=== PATIENT | female | born 1940 | race Caucasian/White ===

== ENCOUNTER 2016-11-26 08:23 | Emergency (ER) | payer MEDICARE, BC ==
[2016-11-26] MEDS ORDERED: Benzonatate 100 MG Cap ONE (08:30)
[2016-11-26] MEDS ORDERED: Azithromycin 250 MG Tab ONE (08:30)
[2016-11-26 08:35] VITALS: BP 156/91
--- NOTE | 2016-11-26 10:57 | EDM.PDOC ---
ED HPI GENERAL MEDICAL PROBLEM - General Chief Complaint: General Stated Complaint: SINUS/BODY ACHE Time Seen by Provider: 11/26/16 08:50 Source of Information: Reports: Patient History Limitations: Reports: No limitations - History of Present Illness INITIAL COMMENTS - FREE TEXT/NARRATIVE: This is a 76yo F here for chest congestion, cough and back pain. Patient states she has been cough and has productive sputum frequently. Patient denies fever or chills and denies sob or chest pain but does have back pain. The pain is worse when coughing. Onset: gradual Duration: Week(s):, Getting worse Location: Reports: chest Severity: mild Improves with: Reports: None Worsens with: Reports: None Associated Symptoms: Reports: cough. Denies: chest pain, fever/chills, malaise , nausea/vomiting, shortness of breath, syncope, weakness - Related Data Allergies Allergy/AdvReac Type Severity Reaction Status Date / Time Penicillins Allergy Swelling Verified 11/26/16 08:32 Home Meds: Home Meds Calcium Carbonate [Calcium] 600 mg PO BID 05/07/14 [History] HCTZ/Triamterene [Maxzide 25-37.5 MG] 1 tab PO DAILY 05/07/14 [History] Lisinopril [Lisinopril] 30 mg PO DAILY 05/07/14 [History] Melatonin 3 mg PO BEDTIME 05/07/14 [History] Pravastatin [Pravachol] 40 mg PO BEDTIME 05/07/14 [History] Past Medical History HEENT History: Reports: Impaired vision Cardiovascular History: Reports: Hypertension Gastrointestinal History: Reports: None [employer]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 Oncologic (Cancer) History: Reports: Breast - Infectious Disease History Infectious Disease History: Reports: Chicken pox, Meningitis, Mumps - Past Surgical History HEENT Surgical History: Reports: Adenoidectomy Respiratory Surgical History: Reports: None GI Surgical History: Reports: None Social & Family History - Family History Family Medical History: Noncontributory - Tobacco Use Smoking Status *Q: Never Smoker Second Hand Smoke Exposure: Yes - Caffeine Use Caffeine Use: Reports: None - Alcohol Use Days Per Week of Alcohol Use: 0 - Recreational Drug Use Recreational Drug Use: No ED ROS GENERAL - Review of Systems Review Of Systems: ROS reveals no pertinent complaints other than HPI. ED EXAM, GENERAL - Physical Exam Exam: See Below Exam Limited By: No limitations General Appearance: alert, WD/WN, no apparent distress Eye Exam: bilateral eye: EOMI, PERRL Ears: normal external exam Ear Exam: bilateral ear: TM normal Nose: normal inspection Throat/Mouth: Normal inspection Head: atraumatic, normocephalic Neck: normal inspection, supple, non-tender, full range of motion Respiratory/Chest: no respiratory distress, no accessory muscle use, chest non- tender, rhonchi Cardiovascular: normal peripheral pulses, regular rate, rhythm, no edema Peripheral Pulses: 2+: dorsalis pedis (L), dorsalis pedis (R) Back Exam: muscle spasm Extremities: normal inspection Neurological: alert, oriented, CN II-XII intact Psychiatric: normal affect, normal mood Skin Exam: Warm, Dry, Intact Course - Vital Signs Last Recorded V/S: Last Vital Signs Temp 36.9 C 11/26/16 08:34 Pulse 87 11/26/16 08:34 Resp BP 156/91 H 11/26/16 08:34 Pulse Ox 97 11/26/16 08:34 Departure - Departure Time of Disposition: 09:15 Disposition: Home, Self-Care 01 Condition: good Clinical Impression: Cough, Chest congestion Muscle strain of chest wall Qualifiers: Encounter type: initial encounter Qualified Code(s): S29.011A - Strain of muscle and tendon of front wall of thorax, initial encounter Instructions: Azithromycin tablets Forms: ED Department Discharge Additional Instructions: Take teslon perrles 3 times (every 8 hours) a day as needed for cough. Take azithromycin 2 tablets for 10 days daily. Make sure to complete all of azithromycin medication. Follow with Dr. Estrada if your symptoms do not improve. - Problem List Review Problem List Initiated/Reviewed/Updated: Yes - Assessment/Plan Plan: Counseled on f/u if symptoms persist or worsen. Patient to take her medication as prescribed and f/u in clinic this week.
== END 2016-11-26 09:05 | disposition home or self-care (01) ==
LOC: LB.ED 08:23
DX: S29.011A Strain of muscle and tendon of front wall of thorax, initial encounter (principal); I10 Essential (primary) hypertension; Z98.890 Other specified postprocedural states; Z88.0 Allergy status to penicillin; X58.XXXA Exposure to other specified factors, initial encounter
CPT/HCPCS: 99283; A9270

== ENCOUNTER 2017-02-17 13:13 | Observation (INO) | payer MEDICARE, BC ==
[2017-02-17] MEDS ORDERED: Ketorolac 30 MG/ML SDV IVPUSH PRN (14:07)
[2017-02-17] MEDS ORDERED: Sodium Chloride 0.9% 10 ML Syringe FLUSH PRN (14:08)
[2017-02-17] MEDS ORDERED: Sodium Chloride 0.9% 2,000 ML IV SCH (14:15)
--- NOTE | 2017-02-17 14:16 | EDM.PDOC ---
ED HPI GENERAL MEDICAL PROBLEM - General Chief Complaint: General Stated Complaint: BACK PAIN Time Seen by Provider: 02/17/17 13:50 Source of Information: Reports: Patient - History of Present Illness INITIAL COMMENTS - FREE TEXT/NARRATIVE: This is a 76yo F here for severe back pain 05/03 that has worsened the past few weeks. Patient has been going to [facility] and [facility] for further workup and management of her lung cancer and staging. Patient states she has lost a lot of weight, feels very weak and fatigued. Patient states she feels dehydrated as well. Onset: Gradual Duration: Week(s): Location: Reports: Generalized Severity: Moderate Associated Symptoms: Reports: Loss of Appetite, Weakness - Related Data Allergies Allergy/AdvReac Type Severity Reaction Status Date / Time Penicillins Allergy Swelling Verified 11/26/16 08:32 Home Meds: Home Meds Calcium Carbonate [Calcium] 600 mg PO BID 05/07/14 [History] HCTZ/Triamterene [Maxzide 25-37.5 MG] 1 tab PO DAILY 05/07/14 [History] Lisinopril [Lisinopril] 30 mg PO DAILY 05/07/14 [History] Melatonin 3 mg PO BEDTIME 05/07/14 [History] Pravastatin [Pravachol] 40 mg PO BEDTIME 05/07/14 [History] Past Medical History HEENT History: Reports: Impaired Vision Cardiovascular History: Reports: Hypertension Other Respiratory History: dx in December 20 with lung CA Gastrointestinal History: Reports: None [employer]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 Oncologic (Cancer) History: Reports: Breast, Lung Other Oncologic History: Lung CA diagnosed December 20 2016 - Infectious Disease History Infectious Disease History: Reports: Chicken Pox, Meningitis, Mumps - Past Surgical History Respiratory Surgical History: Reports: None GI Surgical History: Reports: None Social & Family History - Family History Family Medical History: Noncontributory - Tobacco Use Smoking Status *Q: Never Smoker Second Hand Smoke Exposure: No - Caffeine Use Caffeine Use: Reports: None - Alcohol Use Days Per Week of Alcohol Use: 0 - Recreational Drug Use Recreational Drug Use: No ED ROS GENERAL - Review of Systems Review Of Systems: See Below Constitutional: Reports: Weakness, Fatigue, Decreased Appetite, Weight Loss HEENT: Reports: No Symptoms Respiratory: Reports: No Symptoms Cardiovascular: Reports: No Symptoms Endocrine: Reports: Fatigue GI/Abdominal: Reports: Constipation : Reports: No Symptoms Musculoskeletal: Reports: Back Pain Neurological: Reports: Weakness Psychiatric: Reports: No Symptoms ED EXAM, GENERAL - Physical Exam Exam: See Below Exam Limited By: No Limitations General Appearance: Alert, Mild Distress, Thin Eye Exam: Bilateral Eye: EOMI Ears: Normal External Exam Nose: Normal Inspection Throat/Mouth: Normal Inspection Head: Atraumatic, Normocephalic Neck: Normal Inspection Respiratory/Chest: No Respiratory Distress, Lungs Clear Cardiovascular: Normal Peripheral Pulses, Regular Rate, Rhythm GI/Abdominal: Normal Bowel Sounds Extremities: Normal Inspection Neurological: Alert, Oriented Course - Vital Signs Last Recorded V/S: Last Vital Signs Temp 37.2 C 02/17/17 14:00 Pulse 107 H 02/17/17 14:00 Resp 16 02/17/17 14:00 BP 146/95 H 02/17/17 14:00 Pulse Ox 95 02/17/17 14:00 - Orders/Labs/Meds Orders: Active Orders 24 hr Category Date Time Status Patient Status [ADT] Routine ADT 02/17/17 14:04 Ordered Oxygen Therapy [RC] PRN Care 02/17/17 14:04 Ordered Vital Signs [RC] QSHIFT Care 02/17/17 14:04 Ordered Regular Diet [DIET] Diet 02/17/17 Dinner Ordered CBC WITH AUTO DIFF [HEME] Routine Lab 02/17/17 14:10 Ordered COMPREHENSIVE METABOLIC PN,CMP [CHEM] Routine Lab 02/17/17 14:10 Ordered Calcium Carbonate Med 02/17/17 20:00 Ordered 600 mg PO BID HCTZ/Triamterene [Maxzide 25-37.5 MG] Med 02/17/17 14:15 Ordered 1 tab PO DAILY Ketorolac [Toradol] Med 02/17/17 14:07 Ordered 30 mg IVPUSH Q8H PRN Lisinopril [Lisinopril] Med 02/17/17 14:15 Ordered 30 mg PO DAILY Melatonin Med 02/17/17 20:00 Ordered 3 mg PO BEDTIME Pravastatin [Pravachol] Med 02/17/17 20:00 Ordered 40 mg PO BEDTIME Sodium Chloride 0.9% [Normal Saline] 2,000 ml Med 02/17/17 14:15 Ordered IV ASDIRECTED Sodium Chloride 0.9% [Saline Flush] Med 02/17/17 14:08 Ordered 10 ml FLUSH ASDIRECTED PRN Zolpidem [Ambien] Med 02/17/17 20:00 Ordered 5 mg PO BEDTIME Peripheral IV Insertion Adult [OM.PC] Routine Oth 02/17/17 14:08 Ordered Medication Orders Calcium Carbonate/Glycine (Calcium Carbonate) 600 mg PO BID OXANA Sodium Chloride (Normal Saline) 2,000 mls @ 100 mls/hr IV ASDIRECTED OXANA Ketorolac Tromethamine (Toradol) 30 mg IVPUSH Q8H PRN PRN Reason: Pain Stop: 02/22/17 14:07 Melatonin (Melatonin) 3 mg PO BEDTIME OXANA Non-Formulary Medication (Hctz/Triamterene [Maxzide 25-37.5 Mg]) 1 tab PO DAILY OXANA Non-Formulary Medication (Lisinopril [Lisinopril]) 30 mg PO DAILY OXANA Pravastatin Sodium (Pravachol) 40 mg PO BEDTIME OXANA Sodium Chloride (Saline Flush) 10 ml FLUSH ASDIRECTED PRN PRN Reason: Keep Vein Open Zolpidem Tartrate (Ambien) 5 mg PO BEDTIME [facility] Meds: Medications Generic Name Dose Route Start Last Admin Trade Name Freq PRN Reason Stop Dose Admin Calcium Carbonate/Glycine 600 mg 02/17/17 20:00 Calcium Carbonate PO BID OXANA Sodium Chloride 2,000 mls @ 100 mls/hr 02/17/17 14:15 Normal Saline IV ASDIRECTED OXANA Ketorolac Tromethamine 30 mg 02/17/17 14:07 Toradol IVPUSH 02/22/17 14:07 Q8H PRN Pain Melatonin 3 mg 02/17/17 20:00 Melatonin PO BEDTIME OXANA Non-Formulary Medication 1 tab 02/17/17 14:15 Hctz/Triamterene [Maxzide 25-37.5 Mg] PO DAILY OXANA Non-Formulary Medication 30 mg 02/17/17 14:15 Lisinopril [Lisinopril] PO DAILY OXANA Pravastatin Sodium 40 mg 02/17/17 20:00 Pravachol PO BEDTIME OXANA Sodium Chloride 10 ml 02/17/17 14:08 Saline Flush FLUSH ASDIRECTED PRN Keep Vein Open Zolpidem Tartrate 5 mg 02/17/17 20:00 Ambien PO BEDTIME OXANA Departure - Departure Time of Disposition: 14:18 Disposition: Refer to Observation Condition: good Clinical Impression: Palliative care patient, Dehydration, Cachexia Lung cancer Qualifiers: Laterality: left Lung location: upper lobe of lung Qualified Code(s): C34.12 - Malignant neoplasm of upper lobe, left bronchus or lung Back pain Qualifiers: Back pain location: low back pain Chronicity: chronic Back pain laterality: bilateral Sciatica presence: without sciatica Qualified Code(s): M54.5 - Low back pain; G89.29 - Other chronic pain - Discharge Information Forms: ED Department Discharge - My Orders Last 24 Hours: My Active Orders 02/17/17 14:04 Patient Status [ADT] Routine Oxygen Therapy [RC] PRN Vital Signs [RC] QSHIFT 02/17/17 14:07 Ketorolac [Toradol] 30 mg IVPUSH Q8H PRN 02/17/17 14:08 Sodium Chloride 0.9% [Saline Flush] 10 ml FLUSH ASDIRECTED PRN Peripheral IV Insertion Adult [OM.PC] Routine 02/17/17 14:10 CBC WITH AUTO DIFF [HEME] Routine COMPREHENSIVE METABOLIC PN,CMP [CHEM] Routine 02/17/17 14:15 HCTZ/Triamterene [Maxzide 25-37.5 MG] 1 tab PO DAILY Lisinopril [Lisinopril] 30 mg PO DAILY Sodium Chloride 0.9% [Normal Saline] 2,000 ml IV ASDIRECTED 02/17/17 20:00 Calcium Carbonate 600 mg PO BID Melatonin 3 mg PO BEDTIME Pravastatin [Pravachol] 40 mg PO BEDTIME Zolpidem [Ambien] 5 mg PO BEDTIME 02/17/17 Dinner Regular Diet [DIET] - Assessment/Plan Last 24 Hours: My Active Orders 02/17/17 14:04 Patient Status [ADT] Routine Oxygen Therapy [RC] PRN Vital Signs [RC] QSHIFT 02/17/17 14:07 Ketorolac [Toradol] 30 mg IVPUSH Q8H PRN 02/17/17 14:08 Sodium Chloride 0.9% [Saline Flush] 10 ml FLUSH ASDIRECTED PRN Peripheral IV Insertion Adult [OM.PC] Routine 02/17/17 14:10 CBC WITH AUTO DIFF [HEME] Routine COMPREHENSIVE METABOLIC PN,CMP [CHEM] Routine 02/17/17 14:15 HCTZ/Triamterene [Maxzide 25-37.5 MG] 1 tab PO DAILY Lisinopril [Lisinopril] 30 mg PO DAILY Sodium Chloride 0.9% [Normal Saline] 2,000 ml IV ASDIRECTED 02/17/17 20:00 Calcium Carbonate 600 mg PO BID Melatonin 3 mg PO BEDTIME Pravastatin [Pravachol] 40 mg PO BEDTIME Zolpidem [Ambien] 5 mg PO BEDTIME 02/17/17 Dinner Regular Diet [DIET] Plan: Patient placed in observation. Labs ordered and fluid resuscitation started. Pain meds started. Continue monitoring and pain management.
[2017-02-17] MEDS: Dextrose 5%-0.9% NaCl 1,000 ML IV SCH ×2 (17:25→23:52)
[2017-02-17] MEDS: Calcium Carbonate 600 MG Tab PO SCH (19:48)
[2017-02-17] MEDS: Melatonin 3 MG Tab PO SCH (19:48)
[2017-02-17] MEDS: Zolpidem 5 MG Tab PO SCH (19:48)
[2017-02-18] MEDS: Lidocaine 5% 700 MG Patch TOP SCH ×2 (05:15→20:02)
[2017-02-18] MEDS: Dextrose 5%-0.9% NaCl 1,000 ML IV SCH ×2 (06:14→13:13)
[2017-02-18] MEDS: Calcium Carbonate 600 MG Tab PO SCH ×2 (08:52→19:59)
[2017-02-18] MEDS: traMADol 50 MG Tab PO PRN ×3 (09:22→20:30)
--- NOTE | 2017-02-18 12:53 | PCM.PN ---
- General Info Date of Service: 02/18/17 Subjective Update: Patient states she continues to feel weak and dizzy. Patient states she was able to rest a little. Patient denies any worsening symptoms. Functional Status: Reports: other (decreased appetites) - Review of Systems General: Reports: Weakness HEENT: Reports: no symptoms Pulmonary: Reports: no symptoms Cardiovascular: Reports: No Symptoms Gastrointestinal: Reports: Decreased appetite Genitourinary: Reports: no symptoms Musculoskeletal: Reports: back pain (improved and under control) Skin: Reports: no symptoms Neurological: Reports: Dizziness - Patient Data Vitals - most recent: Last Vital Signs Temp 36.5 C 02/18/17 05:07 Pulse 83 02/18/17 05:07 Resp 18 02/18/17 05:07 BP 132/75 02/18/17 05:07 Pulse Ox 97 02/18/17 05:07 Weight - most recent: 60.101 kg Lab Results last 24 hrs: Laboratory Results - last 24 hr 02/17/17 02/17/17 02/18/17 Range/Units 16:20 16:20 09:20 WBC 17.2 H 14.1 H (4.0-11.0) K/uL RBC 4.23 4.02 (3.80-5.80) M/uL Hgb 11.8 11.1 L (11.5-16.5) g/dL Hct 34.9 L 34.1 L (37.0-47.0) % MCV 83 85 (76-96) fL MCH 27.9 27.6 (27.0-32.0) pg MCHC 33.8 32.6 (31.0-35.0) g/dL RDW 12.6 12.5 (11.0-16.0) % Plt Count 277 443 D (150-500) K/uL MPV 10.2 H 9.2 (6.0-10.0) fL Neut % (Auto) 87.0 H 82.5 H (45.0-70.0) % Lymph % (Auto) 6.0 L 6.7 L (20.0-40.0) % Humphreys % (Auto) 6.2 8.8 (3.0-10.0) % Eos % (Auto) 0.5 L 1.6 (1.0-5.0) % Baso % (Auto) 0.3 0.4 (0.0-0.5) % Neut # (Auto) 14.97 H 11.60 H (2.00-7.50) K/uL Lymph # (Auto) 1.03 L 0.94 L (1.50-4.00) K/uL Humphreys # (Auto) 1.07 H 1.23 H (0.20-0.80) K/uL Eos # (Auto) 0.09 0.23 (0.04-0.40) K/uL Baso # (Auto) 0.05 0.05 (0.02-0.10) K/uL Sodium 129 L (136-145) mmol/L Potassium 4.0 (3.5-5.1) mmol/L Chloride 93 L (98-107) mmol/L Carbon Dioxide 28.4 (21.0-32.0) mmol/L Anion Gap 11.6 (5.0-15.0) mmol/L BUN 18 (8-26) mg/dL Creatinine 0.99 (0.55-1.02) mg/dL Est Cr Clr Drug Dosing 45.87 mL/min Estimated GFR (MDRD) 55 L (>60) MLS/MIN BUN/Creatinine Ratio 18.2 (6-25) Glucose 137 H (74-100) mg/dL Calcium 9.6 (8.5-10.1) mg/dL Total Bilirubin 0.5 (0.0-1.0) mg/dL AST 29 (15-37) U/L ALT 15 (12-78) U/L Alkaline Phosphatase 65 (46-116) U/L Total Protein 6.6 (6.4-8.2) g/dL Albumin 2.5 L (3.4-5.0) g/dL Globulin 4.1 (2.2-4.2) g/dL Albumin/Globulin Ratio 0.6 L (0.8-2.0) Urine Color Urine Appearance (CLEAR) Urine pH (5.0-8.0) Ur Specific [place] (1.003-1.030) Urine Protein (NEGATIVE) mg/dL Urine Glucose (UA) (NEGATIVE) mg/dL Urine Ketones (NEGATIVE) mg/dL Urine Occult Blood (NEGATIVE) Urine Nitrite (NEGATIVE) Urine Bilirubin (NEGATIVE) Urine Urobilinogen (0.2-1.0) E.U./dL Ur Leukocyte Esterase (NEGATIVE) Urine RBC /HPF Urine WBC /HPF Ur Epithelial Cells /HPF Urine Bacteria /HPF 02/18/17 Range/Units Unknown WBC (4.0-11.0) K/uL RBC (3.80-5.80) M/uL Hgb (11.5-16.5) g/dL Hct (37.0-47.0) % MCV (76-96) fL MCH (27.0-32.0) pg MCHC (31.0-35.0) g/dL RDW (11.0-16.0) % Plt Count (150-500) K/uL MPV (6.0-10.0) fL Neut % (Auto) (45.0-70.0) % Lymph % (Auto) (20.0-40.0) % Humphreys % (Auto) (3.0-10.0) % Eos % (Auto) (1.0-5.0) % Baso % (Auto) (0.0-0.5) % Neut # (Auto) (2.00-7.50) K/uL Lymph # (Auto) (1.50-4.00) K/uL Humphreys # (Auto) (0.20-0.80) K/uL Eos # (Auto) (0.04-0.40) K/uL Baso # (Auto) (0.02-0.10) K/uL Sodium (136-145) mmol/L Potassium (3.5-5.1) mmol/L Chloride (98-107) mmol/L Carbon Dioxide (21.0-32.0) mmol/L Anion Gap (5.0-15.0) mmol/L BUN (8-26) mg/dL Creatinine (0.55-1.02) mg/dL Est Cr Clr Drug Dosing mL/min Estimated GFR (MDRD) (>60) MLS/MIN BUN/Creatinine Ratio (6-25) Glucose (74-100) mg/dL Calcium (8.5-10.1) mg/dL Total Bilirubin (0.0-1.0) mg/dL AST (15-37) U/L ALT (12-78) U/L Alkaline Phosphatase (46-116) U/L Total Protein (6.4-8.2) g/dL Albumin (3.4-5.0) g/dL Globulin (2.2-4.2) g/dL Albumin/Globulin Ratio (0.8-2.0) Urine Color Yellow Urine Appearance Clear (CLEAR) Urine pH 6.5 (5.0-8.0) Ur Specific [place] 1.015 (1.003-1.030) Urine Protein Negative (NEGATIVE) mg/dL Urine Glucose (UA) Negative (NEGATIVE) mg/dL Urine Ketones Negative (NEGATIVE) mg/dL Urine Occult Blood Negative (NEGATIVE) Urine Nitrite Negative (NEGATIVE) Urine Bilirubin Negative (NEGATIVE) Urine Urobilinogen 0.2 (0.2-1.0) E.U./dL Ur Leukocyte Esterase Trace H (NEGATIVE) Urine RBC Not seen /HPF Urine WBC 0-5 H /HPF Ur Epithelial Cells Occasional /HPF Urine Bacteria Rare /HPF Med Orders - Current: Current Medications Calcium Carbonate/Glycine (Calcium Carbonate) 600 mg PO BID [facility] Last Admin: 02/18/17 08:52 Dose: Not Given Sodium Chloride (Normal Saline) 2,000 mls @ 100 mls/hr IV ASDIRECTED [facility] Last Admin: 02/17/17 15:00 Dose: 100 mls/hr Dextrose/Sodium Chloride (Dextrose 5%-Normal Saline) 1,000 mls @ 150 mls/hr IV ASDIRECTED [facility] Last Admin: 02/18/17 06:14 Dose: 150 mls/hr Ketorolac Tromethamine (Toradol) 30 mg IVPUSH Q8H PRN PRN Reason: Pain Stop: 02/22/17 14:07 Last Admin: 02/17/17 15:19 Dose: 30 mg Lidocaine (Lidoderm 5%) 700 mg TOP Q24H [facility] Last Admin: 02/18/17 05:15 Dose: Not Given Melatonin (Melatonin) 3 mg PO BEDTIME [facility] Last Admin: 02/17/17 19:48 Dose: 3 mg Miscellaneous Information (Remove Patch) 1 ea TRDERM Q24H [facility] Last Admin: 02/18/17 08:52 Dose: Not Given (Hctz/Triamterene [ Maxzide 25-37.5 Mg] 1 Tab)*Pt Own Med* 1 tab PO DAILY [facility] Last Admin: 02/18/17 08:48 Dose: 1 tab (Lisinopril [ Lisinopril] 30 Mg)* Pt Own Med* 30 mg PO DAILY [facility] Last Admin: 02/18/17 08:49 Dose: 30 mg Pravastatin Sodium (Pravachol) 40 mg PO BEDTIME [facility] Last Admin: 02/17/17 19:48 Dose: 40 mg Sodium Chloride (Saline Flush) 10 ml FLUSH ASDIRECTED PRN PRN Reason: Keep Vein Open Last Admin: 02/17/17 14:55 Dose: 10 ml Tramadol HCl (Ultram) 50 mg PO Q4H PRN PRN Reason: PAIN Last Admin: 02/18/17 09:22 Dose: 50 mg Zolpidem Tartrate (Ambien) 5 mg PO BEDTIME [facility] Last Admin: 02/17/17 19:48 Dose: Not Given - Exam General: alert, oriented, cooperative HEENT: Pupils equal, Pupils reactive, EOMI Neck: supple Lungs: Clear to auscultation, Normal respiratory effort, Decreased breath sounds Cardiovascular: Regular Rate, Regular Rhythm Abdomen: bowel sounds present, soft, no tenderness Back Exam: Normal Inspection, Paraspinal Tenderness Extremities: no edema Skin: warm, dry, intact Neurological: no new focal deficit Psy/Mental Status: alert, depressed - Problem List Review Problem List Initiated/Reviewed/Updated: Yes - My Orders Last 24 Hours: My Active Orders 02/17/17 17:15 Dextrose 5%-0.9% NaCl [Dextrose 5%-Normal Saline] 1,000 ml IV ASDIRECTED 02/17/17 21:00 Lidocaine 5% [Lidoderm 5%] 700 mg TOP Q24H 02/18/17 08:59 traMADol [Ultram] 50 mg PO Q4H PRN 02/18/17 09:00 Remove Patch 1 ea TRDERM Q24H 02/18/17 12:49 BASIC METABOLIC PANEL,BMP [CHEM] Routine 02/19/17 08:00 COMPREHENSIVE METABOLIC PN,CMP [CHEM] Routine - Plan Plan:: Patient states she did not feel like going to [facility] for a workup and biopsy. Counseled and discussed benefits of going to [facility] and encouraged patient to maintain her appointment on . Discussed continued observation today. Patient to continue with current meals and ensure. We will decrease fluid hydration rate and f/u labs in am.
[2017-02-18] MEDS: Zolpidem 5 MG Tab PO SCH (19:58)
[2017-02-18] MEDS: Melatonin 3 MG Tab PO SCH (20:00)
[2017-02-19] MEDS: Zolpidem 5 MG Tab PO SCH ×2 (02:00→19:52)
[2017-02-19] MEDS: Dextrose 5%-0.9% NaCl 1,000 ML IV SCH (02:02)
[2017-02-19] MEDS: Calcium Carbonate 600 MG Tab PO SCH ×2 (07:38→19:54)
[2017-02-19] MEDS: Ondansetron 4 MG/2 ML SDV IVPUSH PRN ×3 (07:41→23:36)
[2017-02-19] MEDS ORDERED: D5%-0.9% NaCl w/ KCl 40 meq 1,000 ML IV SCH (12:00)
[2017-02-19] MEDS ORDERED: cefTRIAXone 1 GM in Sodium Chloride 0.9% 50 ML IV SCH (13:00)
--- NOTE | 2017-02-19 13:23 | PCM.PN ---
- General Info Date of Service: 02/19/17 Subjective Update: Patient continues to have symptoms of dizziness, nausea with improving concerns of left lower visual field concerns. Patient states she does not have an appetite at all and feels weak. Functional Status: Reports: pain controlled Pain Score: 3 - Review of Systems General: Reports: Weakness HEENT: Reports: no symptoms Pulmonary: Reports: no symptoms Cardiovascular: Reports: No Symptoms Gastrointestinal: Reports: Decreased appetite Genitourinary: Reports: no symptoms Neurological: Reports: Weakness Psychiatric: Reports: no symptoms - Patient Data Vitals - most recent: Last Vital Signs Temp 36.6 C 02/18/17 20:20 Pulse 80 02/18/17 20:20 Resp 18 02/18/17 20:20 BP 146/63 H 02/18/17 20:20 Pulse Ox 97 02/18/17 20:20 Weight - most recent: 60.101 kg I&O - last 24 hours: Intake & Output 02/18/17 02/19/17 02/19/17 22:59 06:59 14:59 Intake Total 900 Balance 900 Lab Results last 24 hrs: Laboratory Results - last 24 hr 02/18/17 02/19/17 02/19/17 Range/Units 09:30 09:30 09:30 WBC 16.4 H (4.0-11.0) K/uL RBC 4.38 (3.80-5.80) M/uL Hgb 12.1 (11.5-16.5) g/dL Hct 36.8 L (37.0-47.0) % MCV 84 (76-96) fL MCH 27.6 (27.0-32.0) pg MCHC 32.9 (31.0-35.0) g/dL RDW 12.5 (11.0-16.0) % Plt Count 513 H (150-500) K/uL MPV 9.1 (6.0-10.0) fL Neut % (Auto) 83.5 H (45.0-70.0) % Lymph % (Auto) 6.9 L (20.0-40.0) % [place] % (Auto) 7.8 (3.0-10.0) % Eos % (Auto) 1.6 (1.0-5.0) % Baso % (Auto) 0.2 (0.0-0.5) % Neut # (Auto) 13.71 H (2.00-7.50) K/uL Lymph # (Auto) 1.14 L (1.50-4.00) K/uL [place] # (Auto) 1.29 H (0.20-0.80) K/uL Eos # (Auto) 0.26 (0.04-0.40) K/uL Baso # (Auto) 0.04 (0.02-0.10) K/uL Sodium 134 L 131 L (136-145) mmol/L Potassium 3.8 3.3 L (3.5-5.1) mmol/L Chloride 99 95 L (98-107) mmol/L Carbon Dioxide 30.8 29.8 (21.0-32.0) mmol/L Anion Gap 8.0 9.5 (5.0-15.0) mmol/L BUN 15 9 D (8-26) mg/dL Creatinine 0.92 0.79 (0.55-1.02) mg/dL Est Cr Clr Drug Dosing 49.36 57.48 mL/min Estimated GFR (MDRD) 59 L > 60 (>60) MLS/MIN BUN/Creatinine Ratio 16.3 11.4 (6-25) Glucose 95 D 99 (74-100) mg/dL Calcium 8.9 9.3 (8.5-10.1) mg/dL Total Bilirubin 0.3 D (0.0-1.0) mg/dL AST 19 (15-37) U/L ALT 16 (12-78) U/L Alkaline Phosphatase 72 (46-116) U/L Total Protein 6.4 (6.4-8.2) g/dL Albumin 2.4 L (3.4-5.0) g/dL Globulin 4.0 (2.2-4.2) g/dL Albumin/Globulin Ratio 0.6 L (0.8-2.0) Ángel Results last 24 hrs: Microbiology 02/17/17 Unknown MRSA Surveillance Culture - Final Nares, Unspecified NO MRSA ISOLATED Med Orders - Current: Current Medications Calcium Carbonate/Glycine (Calcium Carbonate) 600 mg PO BID [facility] Last Admin: 02/19/17 07:38 Dose: Not Given Sodium Chloride (Normal Saline) 2,000 mls @ 100 mls/hr IV ASDIRECTED [facility] Last Admin: 02/17/17 15:00 Dose: 100 mls/hr Potassium Chloride/Dextrose/Sod Cl (D5 Ns With 40 Meq Kcl) 1,000 mls @ 120 mls/ hr IV ASDIRECTED [facility] Ceftriaxone Sodium 1 gm/ (Sodium Chloride) 100 mls @ 400 mls/hr IV BID [facility] Ketorolac Tromethamine (Toradol) 30 mg IVPUSH Q8H PRN PRN Reason: Pain Stop: 02/22/17 14:07 Last Admin: 02/17/17 15:19 Dose: 30 mg Lidocaine (Lidoderm 5%) 700 mg TOP Q24H [facility] Last Admin: 02/18/17 20:02 Dose: Not Given Melatonin (Melatonin) 3 mg PO BEDTIME [facility] Last Admin: 02/18/17 20:00 Dose: 3 mg Miscellaneous Information (Remove Patch) 1 ea TRDERM Q24H [facility] Last Admin: 02/18/17 08:52 Dose: Not Given (Hctz/Triamterene [ Maxzide 25-37.5 Mg] 1 Tab)*Pt Own Med* 1 tab PO DAILY [facility] Last Admin: 02/19/17 07:40 Dose: 1 tab (Lisinopril [ Lisinopril] 30 Mg)* Pt Own Med* 30 mg PO DAILY [facility] Last Admin: 02/19/17 07:40 Dose: 30 mg Ondansetron HCl (Zofran) 4 mg IVPUSH Q4H PRN PRN Reason: Nausea/Vomiting Last Admin: 02/19/17 07:41 Dose: 4 mg Pravastatin Sodium (Pravachol) 40 mg PO BEDTIME [facility] Last Admin: 02/18/17 20:00 Dose: 40 mg Sodium Chloride (Saline Flush) 10 ml FLUSH ASDIRECTED PRN PRN Reason: Keep Vein Open Last Admin: 02/17/17 14:55 Dose: 10 ml Tramadol HCl (Ultram) 50 mg PO Q4H PRN PRN Reason: PAIN Last Admin: 02/18/17 20:30 Dose: 50 mg Zolpidem Tartrate (Ambien) 5 mg PO BEDTIME [facility] Last Admin: 02/19/17 02:00 Dose: 5 mg Discontinued Medications Dextrose/Sodium Chloride (Dextrose 5%-Normal Saline) 1,000 mls @ 150 mls/hr IV ASDIRECTED [facility] Last Admin: 02/19/17 02:02 Dose: 150 mls/hr Ceftriaxone Sodium 1 gm/ (Sodium Chloride) 50 mls @ 100 mls/hr IV Q12H [facility] - Exam General: alert, oriented, cooperative HEENT: Pupils equal, Pupils reactive, EOMI Neck: supple Lungs: Clear to auscultation, Normal respiratory effort Cardiovascular: Regular Rate, Regular Rhythm Abdomen: bowel sounds present, soft, no tenderness Extremities: no edema Skin: warm, dry, intact Neurological: no new focal deficit Psy/Mental Status: alert, normal affect, normal mood - Problem List Review Problem List Initiated/Reviewed/Updated: Yes - My Orders Last 24 Hours: My Active Orders 02/19/17 07:27 Ondansetron [Zofran] 4 mg IVPUSH Q4H PRN 02/19/17 12:00 D5%-0.9% NaCl w/ KCl 40 meq [D5 NS with 40 mEq KCl] 1,000 ml IV ASDIRECTED 02/19/17 13:00 cefTRIAXone [Rocephin] 1 gm Sodium Chloride 0.9% [Normal Saline] 100 ml IV BID - Plan Plan:: Patient states she did not feel like going to [place] for a workup and biopsy. Counseled and discussed benefits of going to [place] and encouraged patient to maintain her appointment on . Discussed continued observation today. Patient to continue with current meals and ensure. We will decrease fluid hydration rate and f/u labs in am. 02/19/17 Patient continues to have nausea and weakness. We will change fluids to D5 NS with 20meq (do not have 40meq) and add a few KCL tablets. Empiric rocephin IV for leukocytosis of unknown origin but may possibly be the unconfirmed lung lesions, increased stress and back pain. Labs ordered for am and patient plan for discharge and to fly to [place] the next day for appt for biopsy of lung lesions.
[2017-02-19] MEDS: cefTRIAXone 1 GM in Sodium Chloride 0.9% 100 ML IV SCH ×2 (13:27→23:00)
[2017-02-19] MEDS: Dextrose 5%-0.9% NaCl with KCl 1,000 ML IV SCH ×2 (14:20→20:59)
[2017-02-19] MEDS: Potassium Chloride 20 MEQ Tab.ER PO SCH (19:52)
[2017-02-19] MEDS: Melatonin 3 MG Tab PO SCH (19:53)
[2017-02-19] MEDS: traMADol 50 MG Tab PO PRN (20:06)
[2017-02-19] MEDS: Lidocaine 5% 700 MG Patch TOP SCH (21:00)
[2017-02-20] MEDS: traMADol 50 MG Tab PO PRN (04:15)
[2017-02-20] MEDS: Dextrose 5%-0.9% NaCl with KCl 1,000 ML IV SCH (04:23)
[2017-02-20] MEDS: Potassium Chloride 20 MEQ Tab.ER PO SCH (09:10)
[2017-02-20] MEDS: Calcium Carbonate 600 MG Tab PO SCH (09:15)
[2017-02-20] MEDS: cefTRIAXone 1 GM in Sodium Chloride 0.9% 100 ML IV SCH (09:17)
--- NOTE | 2017-02-20 09:51 | PCM.DCSUM1 ---
Discharge Summary - Discharge Data Discharge Date: 02/20/17 Discharge Disposition: Home, Self-Care 01 Condition: Good - Patient Instructions Diet: Usual Diet as Tolerated Activity: As Tolerated Driving: Do Not Drive - Discharge Plan Home Medications: Home Meds Calcium Carbonate [Calcium] 600 mg PO BID 05/07/14 [History] HCTZ/Triamterene [Maxzide 25-37.5 MG] 1 tab PO DAILY 05/07/14 [History] Lisinopril [Lisinopril] 30 mg PO DAILY 05/07/14 [History] Melatonin 3 mg PO BEDTIME 05/07/14 [History] Pravastatin [Pravachol] 40 mg PO BEDTIME 05/07/14 [History] Forms: ED Department Discharge Referrals: PCP,None [Primary Care Provider] - - Discharge Summary/Plan Comment DC Time >30 min.: Yes Discharge Summary/Plan Comment: Counseled on discharge instructions. Patient discharged so she is able to get ready and fly to [place] for further workup and biopsy of her lung mass. Patient understands the current risks and benefits of discharge and agrees with plan. Although we discussed options for patient to stay in the hospital until she has to leave for her flight Wed. Patient would like to leave today and get ready for tomorrow. Discussed elevated WBC and electrolyte abnormalities. Patient will f/u at [place] for further workup. - Patient Data Vitals - Most Recent: Last Vital Signs Temp 37.1 C 02/19/17 20:00 Pulse 86 02/19/17 20:00 Resp 18 02/19/17 20:00 BP 142/60 H 02/19/17 20:00 Pulse Ox 93 L 02/19/17 20:00 Weight - Most Recent: 60.101 kg I&O - Last 24 hours: Intake & Output 02/19/17 02/20/17 02/20/17 22:59 06:59 14:59 Intake Total 2111 1512 Output Total 150 Balance 1961 1512 Lab Results - Last 24 hrs: Laboratory Results - last 24 hr 02/19/17 02/20/17 02/20/17 Range/Units 09:30 08:30 08:30 WBC 16.3 H (4.0-11.0) K/uL RBC 4.15 (3.80-5.80) M/uL Hgb 11.4 L (11.5-16.5) g/dL Hct 35.3 L (37.0-47.0) % MCV 85 (76-96) fL MCH 27.5 (27.0-32.0) pg MCHC 32.3 (31.0-35.0) g/dL RDW 12.4 (11.0-16.0) % Plt Count 427 (150-500) K/uL MPV 9.3 (6.0-10.0) fL Neut % (Auto) 81.3 H (45.0-70.0) % Lymph % (Auto) 8.9 L (20.0-40.0) % [place] % (Auto) 7.8 (3.0-10.0) % Eos % (Auto) 1.8 (1.0-5.0) % Baso % (Auto) 0.2 (0.0-0.5) % Neut # (Auto) 13.25 H (2.00-7.50) K/uL Lymph # (Auto) 1.45 L (1.50-4.00) K/uL [place] # (Auto) 1.28 H (0.20-0.80) K/uL Eos # (Auto) 0.29 (0.04-0.40) K/uL Baso # (Auto) 0.04 (0.02-0.10) K/uL Sodium 131 L 134 L (136-145) mmol/L Potassium 3.3 L 3.7 (3.5-5.1) mmol/L Chloride 95 L 100 (98-107) mmol/L Carbon Dioxide 29.8 28.0 (21.0-32.0) mmol/L Anion Gap 9.5 9.7 (5.0-15.0) mmol/L BUN 9 D 9 (8-26) mg/dL Creatinine 0.79 0.66 (0.55-1.02) mg/dL Est Cr Clr Drug Dosing 57.48 68.80 mL/min Estimated GFR (MDRD) > 60 > 60 (>60) MLS/MIN BUN/Creatinine Ratio 11.4 13.6 (6-25) Glucose 99 118 H (74-100) mg/dL Calcium 9.3 9.2 (8.5-10.1) mg/dL Total Bilirubin 0.3 D (0.0-1.0) mg/dL AST 19 (15-37) U/L ALT 16 (12-78) U/L Alkaline Phosphatase 72 (46-116) U/L Total Protein 6.4 (6.4-8.2) g/dL Albumin 2.4 L (3.4-5.0) g/dL Globulin 4.0 (2.2-4.2) g/dL Albumin/Globulin Ratio 0.6 L (0.8-2.0) LUCAS Results - Last 24 hrs: Microbiology 02/17/17 Unknown MRSA Surveillance Culture - Final Nares, Unspecified NO MRSA ISOLATED Med Orders - Current: Current Medications Calcium Carbonate/Glycine (Calcium Carbonate) 600 mg PO BID [facility] Last Admin: 02/20/17 09:15 Dose: Not Given Sodium Chloride (Normal Saline) 2,000 mls @ 100 mls/hr IV ASDIRECTED [facility] Last Admin: 02/17/17 15:00 Dose: 100 mls/hr Ceftriaxone Sodium 1 gm/ (Sodium Chloride) 100 mls @ 400 mls/hr IV BID [facility] Last Admin: 02/20/17 09:17 Dose: 400 mls/hr Potassium Chloride/Dextrose/Sod Cl (D5 Ns With 20 Meq Kcl) 1,000 mls @ 150 mls/ hr IV ASDIRECTED [facility] Last Admin: 02/20/17 04:23 Dose: 150 mls/hr Ketorolac Tromethamine (Toradol) 30 mg IVPUSH Q8H PRN PRN Reason: Pain Stop: 02/22/17 14:07 Last Admin: 02/17/17 15:19 Dose: 30 mg Lidocaine (Lidoderm 5%) 700 mg TOP Q24H [facility] Last Admin: 02/19/17 21:00 Dose: Not Given Melatonin (Melatonin) 3 mg PO BEDTIME [facility] Last Admin: 02/19/17 19:53 Dose: 3 mg Miscellaneous Information (Remove Patch) 1 ea TRDERM Q24H [facility] Last Admin: 02/20/17 09:22 Dose: Not Given (Hctz/Triamterene [ Maxzide 25-37.5 Mg] 1 Tab)*Pt Own Med* 1 tab PO DAILY [facility] Last Admin: 02/20/17 09:15 Dose: 1 tab (Lisinopril [ Lisinopril] 30 Mg)* Pt Own Med* 30 mg PO DAILY [facility] Last Admin: 02/20/17 09:15 Dose: 30 mg Ondansetron HCl (Zofran) 4 mg IVPUSH Q4H PRN PRN Reason: Nausea/Vomiting Last Admin: 02/19/17 23:36 Dose: 4 mg Potassium Chloride (Klor-Con M20) 20 meq PO BID [facility] Last Admin: 02/20/17 09:10 Dose: 20 meq Pravastatin Sodium (Pravachol) 40 mg PO BEDTIME [facility] Last Admin: 02/19/17 19:53 Dose: 40 mg Sodium Chloride (Saline Flush) 10 ml FLUSH ASDIRECTED PRN PRN Reason: Keep Vein Open Last Admin: 02/17/17 14:55 Dose: 10 ml Tramadol HCl (Ultram) 50 mg PO Q4H PRN PRN Reason: PAIN Last Admin: 02/20/17 04:15 Dose: 50 mg Zolpidem Tartrate (Ambien) 5 mg PO BEDTIME [facility] Last Admin: 02/19/17 19:52 Dose: 5 mg Discontinued Medications Dextrose/Sodium Chloride (Dextrose 5%-Normal Saline) 1,000 mls @ 150 mls/hr IV ASDIRECTED [facility] Last Admin: 02/19/17 02:02 Dose: 150 mls/hr Potassium Chloride/Dextrose/Sod Cl (D5 Ns With 40 Meq Kcl) 1,000 mls @ 120 mls/ hr IV ASDIRECTED [facility] Ceftriaxone Sodium 1 gm/ (Sodium Chloride) 50 mls @ 100 mls/hr IV Q12H [facility] *Q Meaningful Use (DIS) - VTE *Q VTE Criteria *Q: - Stroke *Q Stroke Criteria *Q: - AMI *Q AMI Criteria *Q:
[2017-02-20 10:23] VITALS: BP 154/79
== END 2017-02-20 12:12 | disposition home or self-care (01) ==
LOC: LB.ED 13:13 → LB.MS 14:04 → UNDOADMOB 14:10 → LB.MS 14:10
PROVIDERS: ADMIT Family Medicine; ATTEND Family Medicine
DX: C34.12 Malignant neoplasm of upper lobe, left bronchus or lung (principal); G89.29 Other chronic pain; M54.5 Low back pain; E86.0 Dehydration; R64 Cachexia; R63.0 Anorexia; R53.1 Weakness; I10 Essential (primary) hypertension; R53.83 Other fatigue; Z88.0 Allergy status to penicillin; Z85.118 Personal history of other malignant neoplasm of bronchus and lung; Z79.899 Other long term (current) drug therapy
CPT/HCPCS: 36415; 80048; 80053; 81001; 85025; 96361; 96365; 96366; 96367; 96375; 96376; 99217; 99220; 99225; 99284; A9270; G0378; J0696; J1885; J2405; J3480; J7030; J7040; J7050

== ENCOUNTER 2017-03-21 14:09 | Inpatient (IN) | payer MEDICARE, BC ==
[2017-03-21] MEDS ORDERED: Sodium Chloride 0.9% 10 ML Syringe FLUSH PRN (16:56)
[2017-03-21] MEDS ORDERED: Acetaminophen 325 MG Tab PO PRN (16:56)
[2017-03-21] MEDS ORDERED: Morphine 2 MG/ML Syringe IVPUSH PRN (16:56)
[2017-03-21] MEDS ORDERED: Bisacodyl 5 MG Tab PO ONE (16:56)
[2017-03-21] MEDS ORDERED: Heparin Sodium 5,000 Units/ML Vial SUBCUT SCH (17:00)
[2017-03-21] MEDS ORDERED: traMADol 50 MG Tab PO PRN (17:06)
[2017-03-21] MEDS ORDERED: Sodium Phosphate,Monobasic/Sodium Phosphate,Dibasic Enema 133 ML Bottle RECTAL ONE (17:07)
--- NOTE | 2017-03-21 17:39 | CR ---
DATE OF SERVICE: 03/21/17 CLINICAL DATA: Nausea with vomiting, unspecified SUPINE AND UPRIGHT ABDOMEN: There is a large amount of stool present throughout the colon and rectum. No definite evidence for obstruction or ileus. No free air. There is increased density in the left lung base consistent with basilar atelectasis or infiltrate. Pneumonia should be considered. There is blunting of the left costophrenic angle consistent with a left pleural effusion. No other significant findings. [id number] MTDD
[2017-03-21] MEDS: Heparin Sodium 5,000 Units/ML Vial SUBCUT SCH (18:06)
[2017-03-21] MEDS ORDERED: Bisacodyl 10 MG Supp RECTAL PRN (18:23)
[2017-03-21] MEDS: Dextrose 5%-0.9% NaCl 1,000 ML IV SCH (18:44)
[2017-03-22] MEDS: Ondansetron 4 MG/2 ML SDV IVPUSH PRN ×3 (03:00→22:02)
[2017-03-22] MEDS: Heparin Sodium 5,000 Units/ML Vial SUBCUT SCH ×2 (06:43→18:43)
[2017-03-22] MEDS: Lisinopril 10 MG Tab PO SCH (08:46)
--- NOTE | 2017-03-22 08:47 | HP ---
CHIEF COMPLAINT: Nausea, vomiting, dizziness, abdominal pain, diarrhea. PAST MEDICAL HISTORY: 1. Left lung mass by CT, 12/20/2016, 8 cm in size. a. 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 b. Per patient and [id number], CT of the abdomen and MRI of the head did not show any spread of the tumor. c. Has not followed up with the oncologist yet to discuss treatment options. 2. 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 ER positive, AK positive, HER- 2 negative. a. Status post lumpectomy and adjuvant radiation and tamoxifen for 5 years. 3. Hypertension. 4. Hyperlipidemia. 5. Hysterectomy. 6. Oophorectomy. HISTORY OF PRESENT ILLNESS: A very pleasant 76-year-old female who is accompanied by her daughter in-law comes in today with nausea, vomiting, and diarrhea that she has had for the last 24 hours. At baseline, she does not eat or drink much and she has lost about 10 pounds over the last month. She denies any hematemesis or coffee-grounds emesis. She states she has had 4 loose stools without blood or mucus. She denies having any fevers, chills, or sweats. She does have some lower abdominal pain that is improved by having a diarrheal stool. She denies any shortness of breath, cough. She does have some left-sided chest pain which she has had that ever since diagnosis of her lung mass. She apparently was hospitalized here in the past for dehydration with similar symptoms. She does take tramadol at home for the pain. CURRENT MEDICATIONS: 1. Lisinopril 30 mg daily. 2. Zofran 4 mg q.4 hours p.r.n. nausea. 3. Pravachol 40 mg, 2 tablets daily. 4. Tramadol 50 mg, 1 to 2 tabs q.6 to 8 hours p.r.n. 5. Maxzide 37.5/25, 1 tablet daily. 6. Zolpidem 5 mg at bedtime p.r.n. FAMILY HISTORY: Mother, stroke and hypertension. Father, hypertension. SOCIAL HISTORY: . Nonsmoker. REVIEW OF SYSTEMS: Other than above, 12-point review of systems is negative. PHYSICAL EXAMINATION: GENERAL: Pleasant, cachectic female was able to walk into the clinic with minimal assist. VITAL SIGNS: Blood pressure was 122/62, pulse of 107. Having the patient stand from a lying position, blood pressure dropped to 100 systolic with a pulse of 115. There is temporal muscle wasting bilaterally. HEENT: Reveals dry mucosa, otherwise negative. No thrush. No adenopathy in the neck. No thyromegaly. CHEST: Reveals mildly decreased breath sounds in the left chest as compared to the right, but no wheezes or rales. CARDIAC: Reveals a tachycardia, regular without gallop or rub. JVD is flat. There is no pedal edema. ABDOMEN: Reveals normoactive bowel sounds. Mildly tender in the lower quadrants bilaterally. I do not feel any masses or organomegaly. : Deferred. NEUROLOGIC: She is alert and oriented x3. Speech is fluent. Cranial nerves 3 through 12 are intact. Strength is symmetric in both upper and lower extremities. Reflexes are brisk and symmetric bilaterally. LABORATORY DATA: White count came back 25,500 with a hemoglobin of 12.8, platelet count of 740. 85% neutrophils, 5.5% lymphocytes. Sodium is 127, potassium 3.7, chloride 87, CO2 is 33, glucose 114, BUN 17 with a creatinine of 1. LFTs are normal. Calcium is 10.2. Abdominal flat and upright, I do not see any evidence of air-fluid levels or dilated loops of bowel. She does have a lot of stool within the colon. I did not see any free air. IMPRESSION: 1. Lung mass. 2. Lung cancer, presumed non-small cell. 3. Nausea, vomiting question secondary to dehydration and possibly also her obstipation. 4. Dehydration. 5. Obstipation. 6. Leukocytosis. 7. Hyponatremia, felt secondary to 1. PLAN: Due to her elevated white count, we will admit her to the hospital and plan IV hydration along with pain control. We will start a bowel regimen for resolution of her obstipation. We will start with a suppository and Fleet Enema from below and if it does not get resolved start MiraLAX from above. Her hyponatremia is most likely due to dehydration or may also be contributed by her lung mass. We will hydrate with normal saline and recheck in the morning. The patient does need to discuss her treatment options with the oncologist since I think waiting longer her performance status is only going to decline. We will discuss with the patient regarding code status, but I certainly think it would be appropriate for DNR/DNI. We will discuss this with the patient. SHAYY/RAMON
[2017-03-22] MEDS: Polyethylene Glycol 3350 Powder 17 GM Packet PO SCH (08:49)
--- NOTE | 2017-03-22 10:08 | PN ---
DATE OF VISIT: 03/22/2017 SUBJECTIVE: The patient has mild nausea overnight, which was resolved with Zofran. She did have 2 smaller stools with the Fleet's enema. Her abdominal discomfort is improved, but still feels discomfort. She does feel better. She has been putting out more urine now. She denies any shortness of breath. Chest pain is controlled with tramadol and she did receive 1 dose of morphine last night. She has not had followup yet with the oncologist to discuss treatment options, which I encouraged her to do next week. OBJECTIVE: VITAL SIGNS: Blood pressure is 144/71, pulse 84, respirations 18, O2 sats 95% with a temperature of 98.3. HEENT shows much better mucosal hydration. Mildly decreased breath sounds in the left chest, right is clear. CARDIAC: Regular rate and rhythm without gallop, rub, gallop, or rub. ABDOMEN: Reveals mildly decreased bowel sounds, but present. Mild tenderness in lower quadrants, although improved from yesterday. LABORATORY DATA: From this morning is pending. IMPRESSION: 1. Dehydration, nausea, vomiting. 2. Obstipation. 3. Lung cancer, presumed non-small cell, left chest with an 8 cm mass. 4. Hypertension. 5. Hyponatremia. 6. Leukocytosis. PLAN: The patient clinically has improved overnight with IV hydration. Do still need to evacuate the colon since her x-ray did show a lot of stool. We will use a soapsuds enema this morning and may have to repeat if we do not get good results. We will also start MiraLAX from above. We will await lab work for hyponatremia this morning, but suspect that that is secondary to the dehydration, but also possibly her lung tumor. We will hold her diuretic. The patient has leukocytosis. She has been afebrile. She did have 2 blood cultures done yesterday, results of those are pending, but I suspect that this is related to her tumor and also her obstipation. Since I do not see any sign of infection, we will recheck white count this morning. Her blood pressure is now normalized, getting slightly high. We will restart her lisinopril at a decreased dose. We will hold her diuretic due to hyponatremia and dehydration. For her lung tumor, will strongly encourage her to set up an appointment with the oncologist next week to discuss treatment options. I told her that this needs to be done while her functional status is adequate to be able to receive chemotherapy since if she gets weaker, the risk of chemotherapy markedly increases. She may also even decide not to treat this and go on hospice. Recommended followup with Oncology next week. Anticipate discharge tomorrow if bowels can be cleared and sodium improves. SHAYY/RAMON /[id number]
[2017-03-22] MEDS: Dextrose 5%-0.9% NaCl 1,000 ML IV SCH ×2 (15:21→23:33)
[2017-03-22] MEDS: Melatonin 3 MG Tab ONE (20:10)
[2017-03-23] MEDS: Heparin Sodium 5,000 Units/ML Vial SUBCUT SCH ×2 (07:27→17:57)
[2017-03-23] MEDS: Lisinopril 10 MG Tab PO SCH (08:25)
[2017-03-23] MEDS: Polyethylene Glycol 3350 Powder 17 GM Packet PO SCH (08:26)
[2017-03-23] MEDS: Ondansetron 4 MG/2 ML SDV IVPUSH PRN ×2 (08:35→17:52)
[2017-03-23] MEDS ORDERED: Dextrose 5%-0.9% NaCl with KCl 1,000 ML IV SCH (09:30)
[2017-03-23] MEDS: Dexamethasone 4 MG/ML SDV IVPUSH SCH ×3 (12:16→22:56)
[2017-03-23] MEDS: OLANZapine 5 MG Tab PO SCH (12:16)
--- NOTE | 2017-03-23 13:37 | PCM.PN ---
- General Info Date of Service: 03/23/17 Subjective Update: Patient continues to have nausea and vomited after her bland diet breakfast this am. Patient and daughter do not feel comfortable returning home today. Patient continues to feel weak and nauseated. No other symptoms noted. - Review of Systems General: Reports: Weakness HEENT: Reports: no symptoms Pulmonary: Reports: no symptoms Cardiovascular: Reports: No Symptoms Gastrointestinal: Reports: Decreased appetite, Nausea, Vomiting Genitourinary: Reports: no symptoms Musculoskeletal: Reports: no symptoms Skin: Reports: no symptoms Neurological: Reports: Weakness Psychiatric: Reports: no symptoms - Patient Data Vitals - most recent: Last Vital Signs Temp 36.8 C 03/23/17 10:00 Pulse 76 03/23/17 10:00 Resp 16 03/23/17 10:00 BP 141/59 H 03/23/17 10:00 Pulse Ox 98 03/23/17 10:00 Weight - most recent: 59.874 kg I&O - last 24 hours: Intake & Output 03/22/17 03/23/17 03/23/17 22:59 06:59 14:59 Intake Total 200 Output Total 1300 Balance -1100 Ángel Results last 24 hrs: Microbiology 03/21/17 20:30 Aerobic Blood Culture - Preliminary Blood NO GROWTH AFTER 1 DAY Anaerobic Blood Culture - Preliminary NO GROWTH AFTER 1 DAY 03/21/17 20:00 Aerobic Blood Culture - Preliminary Blood NO GROWTH AFTER 1 DAY Anaerobic Blood Culture - Preliminary NO GROWTH AFTER 1 DAY 03/21/17 18:00 MRSA Surveillance Culture - Final Nasal, Unspecified NO MRSA ISOLATED Med Orders - Current: Current Medications Acetaminophen (Tylenol) 650 mg PO Q4H PRN PRN Reason: Pain (Mild 1-3)/fever Bisacodyl (Dulcolax) 10 mg RECTAL DAILY PRN PRN Reason: Constipation Last Admin: 03/21/17 18:05 Dose: 10 mg Dexamethasone (Dexamethasone) 4 mg IVPUSH Q6H [facility] Last Admin: 03/23/17 12:16 Dose: 4 mg Heparin Sodium (Porcine) (Heparin Sodium) 5,000 units SUBCUT Q12H [facility] Last Admin: 03/23/17 07:27 Dose: Not Given Dextrose/Sodium Chloride (Dextrose 5%-Normal Saline) 1,000 mls @ 75 mls/hr IV ASDIRECTED [facility] Last Admin: 03/22/17 23:33 Dose: 125 mls/hr Potassium Chloride/Dextrose/Sod Cl (D5 Ns With 20 Meq Kcl) 1,000 mls @ 125 mls/ hr IV ASDIRECTED [facility] Last Admin: 03/23/17 09:35 Dose: 125 mls/hr Lisinopril (Prinivil) 10 mg PO DAILY [facility] Last Admin: 03/23/17 08:25 Dose: 10 mg Morphine Sulfate (Morphine) 2 mg IVPUSH Q2H PRN PRN Reason: Pain (severe 7-10) Last Admin: 03/21/17 18:15 Dose: 2 mg Olanzapine (Zyprexa) 5 mg PO DAILY [facility] Last Admin: 03/23/17 12:16 Dose: 5 mg Ondansetron HCl (Zofran) 4 mg IVPUSH Q6H PRN PRN Reason: Nausea/Vomiting Last Admin: 03/23/17 08:35 Dose: 4 mg Polyethylene Glycol (Miralax) 17 gm PO DAILY [facility] Last Admin: 03/23/17 08:26 Dose: 17 gm Sodium Chloride (Saline Flush) 10 ml FLUSH ASDIRECTED PRN PRN Reason: Keep Vein Open Tramadol HCl (Ultram) 50 mg PO Q6H PRN PRN Reason: Chest Pain Discontinued Medications Heparin Sodium (Porcine) (Heparin Sodium) 5,000 units SUBCUT Q8H [facility] Last Admin: 03/21/17 18:22 Dose: Not Given Melatonin (Melatonin) Confirm Administered Dose 3 mg .ROUTE .STK-MED ONE Stop: 03/22/17 20:01 Last Admin: 03/22/17 20:10 Dose: 3 mg Sodium Biphosphate/Sodium Phosphate (Fleet Enema) 133 ml RECTAL ONETIME ONE Stop: 03/21/17 17:08 Last Admin: 03/21/17 19:20 Dose: 1 bottle - Exam General: alert, oriented HEENT: Pupils equal, Pupils reactive, EOMI Neck: supple Lungs: Clear to auscultation, Normal respiratory effort Cardiovascular: Regular Rate, Regular Rhythm Abdomen: soft, no tenderness, abnormal bowel sounds Back Exam: Normal Inspection, Full Range of Motion Extremities: no edema Skin: warm, dry, intact - Problem List & Annotations (1) Cachexia SNOMED Code(s): 771208112 Code(s): R64 - CACHEXIA Status: Acute Current Visit: Yes (2) Dehydration SNOMED Code(s): 45307927 Code(s): E86.0 - DEHYDRATION Status: Acute Current Visit: Yes (3) Lung cancer SNOMED Code(s): 241765497 Code(s): C34.90 - MALIGNANT NEOPLASM OF UNSP PART OF UNSP BRONCHUS OR LUNG Status: Acute Current Visit: Yes Qualifiers: Laterality: left Lung location: upper lobe of lung Qualified Code(s): C34.12 - Malignant neoplasm of upper lobe, left bronchus or lung (4) Palliative care patient SNOMED Code(s): 554714600 Code(s): Z51.5 - ENCOUNTER FOR PALLIATIVE CARE Status: Acute Current Visit: Yes (5) Nausea & vomiting SNOMED Code(s): 84688749 Code(s): R11.2 - NAUSEA WITH VOMITING, UNSPECIFIED Status: Acute Current Visit: Yes Qualifiers: Vomiting Intractability: intractable - Problem List Review Problem List Initiated/Reviewed/Updated: Yes - My Orders Last 24 Hours: My Active Orders 03/23/17 09:30 Dextrose 5%-0.9% NaCl with KCl [D5 NS with 20 mEq KCl] 1,000 ml IV ASDIRECTED 03/23/17 11:00 Dexamethasone 4 mg IVPUSH Q6H 03/23/17 11:15 OLANZapine [ZyPREXA] 5 mg PO DAILY - Assessment Assessment:: Patient and daughter do not feel comfortable with discharge today. We will start trial of dexamethasone and olanzapine with scheduled zofran for relief. We will continue fluid hydration as patient has not had a lot of appetite or fluid intake. Patient signed out to Dr. Sibley for the weekend. The daughter will try and obtain an appointment with Oncology this next week for further management and possibly Immunotherapy.
[2017-03-23] MEDS ORDERED: LORazepam 2 MG/ML MDV IVPUSH PRN (17:20)
[2017-03-23] MEDS ORDERED: Melatonin 3 MG Tab ONE (20:50)
[2017-03-23] MEDS: Melatonin 3 MG Tab ONE (20:52)
[2017-03-24] MEDS: Dexamethasone 4 MG/ML SDV IVPUSH SCH ×2 (05:41→12:00)
[2017-03-24] MEDS: Heparin Sodium 5,000 Units/ML Vial SUBCUT SCH (05:41)
[2017-03-24] MEDS: OLANZapine 5 MG Tab PO SCH (08:34)
[2017-03-24] MEDS: Lisinopril 10 MG Tab PO SCH (08:34)
[2017-03-24] MEDS: Polyethylene Glycol 3350 Powder 17 GM Packet PO SCH (08:36)
--- NOTE | 2017-03-24 11:00 | PCM.DCSUM1 ---
Discharge Summary - Hospital Course Free Text/Narrative:: Pt was admitted for nausea and constipation. She was on Iv fluids until her nausea resolved. Stopped on day 2. Also her Xray shoed plenty of fecal matter with no bowel obstruction. Pt has received fleets and soap suds enema. She has been passing hard formed stool since yesterday. her last bowel movement was today morning. She claims her abdominal pain has resolved. Also she has been able to eat better. Has had her break fast today. no more nausea or vomiting episodes. her CBC has gradually improved form 25K to 16 K today. Her electrolytes are stable today. Prt is tolerating diet and having bowel movements. Afebrile and no abdominal pain or discomfort. Plan is to discharge her home today. Only medication i have started her on to use zofran 4mg po tid PRN for nausea, if she develops it. Also She has lung cancer and has appointment with oncologist on Sunday,which I have advised her to keep. Also advised to followup with on sunday for recheck, with CBC. Brief History: Pt is has new diagnosis of lung cancer, who preent with nausea, weakness and constipation. Pt ws admitted for IV hydratuion and to resolve constipation. kindly see the H&P for details. - Discharge Data Discharge Date: 03/24/17 Discharge Disposition: Home, Self-Care 01 Condition: Good - Patient Summary/Data Consults: Consultations 03/21/17 16:56 Consult to Bean Picker [CONS] Routine Comment: Physician Instructions: Special Instructions: home health 03/22/17 08:28 OT Evaluation and Treatment [CONS] Routine Please Evaluate and Treat. OT Reason for Consult: ADL's Special Instructions: d/c planning and saftey of d/c home This query below is only for informational purposes and is not editable. Admission Diagnosis/Problem: Dehydration - Patient Instructions Diet: Regular Diet as Tolerated Activity: As Tolerated Showering/Bathing: May Shower - Discharge Plan Home Medications: Home Meds HCTZ/Triamterene [Maxzide 25-37.5 MG] 1 tab PO DAILY 05/07/14 [History] Lisinopril 30 mg PO DAILY 05/07/14 [History] Melatonin 3 mg PO BEDTIME 05/07/14 [History] Pravastatin [Pravachol] 40 mg PO BEDTIME 05/07/14 [History] Ondansetron [Zofran] 4 mg IVPUSH Q8HR #0 vial 03/24/17 [Rx] Polyethylene Glycol 3350 [MiraLAX] 17 gm PO DAILY packet 03/24/17 [Rx] - Discharge Summary/Plan Comment DC Time >30 min.: Yes - General Info Functional Status: Reports: pain controlled, tolerating diet, ambulating, urinating - Review of Systems General: Denies: Fever, Weakness, Fatigue, Malaise HEENT: Denies: sinus congestion, sore throat Pulmonary: Denies: hemoptysis, wheezing Cardiovascular: Denies: Chest Pain, Edema, Lightheadedness Gastrointestinal: Reports: Flatus. Denies: Abdominal pain, Diarrhea, Nausea, Vomiting Genitourinary: Denies: dysuria, frequency, burning Musculoskeletal: Denies: joint pain, joint swelling Skin: Denies: pruritis, rash Neurological: Reports: No Symptoms - Patient Data Vitals - Most Recent: Last Vital Signs Temp 98.5 F 03/24/17 08:37 Pulse 79 03/24/17 08:37 Resp 18 03/24/17 08:37 BP 144/63 H 03/24/17 08:37 Pulse Ox 94 L 03/24/17 08:37 Weight - Most Recent: 59.874 kg I&O - Last 24 hours: Intake & Output 03/23/17 03/24/17 03/24/17 22:59 06:59 14:59 Intake Total 200 Output Total 600 Balance -400 Lab Results - Last 24 hrs: Laboratory Results - last 24 hr 03/23/17 03/23/17 03/24/17 Range/Units 17:02 17:02 08:30 WBC 19.2 H 16.8 H (4.0-11.0) K/uL RBC 4.32 4.51 (3.80-5.80) M/uL Hgb 11.5 11.9 (11.5-16.5) g/dL Hct 35.2 L 36.3 L (37.0-47.0) % MCV 82 81 (76-96) fL MCH 26.6 L 26.4 L (27.0-32.0) pg MCHC 32.7 32.8 (31.0-35.0) g/dL RDW 13.0 13.1 (11.0-16.0) % Plt Count 481 588 H D (150-500) K/uL MPV 9.0 8.5 (6.0-10.0) fL Neut % (Auto) 95.0 H 92.3 H (45.0-70.0) % Lymph % (Auto) 3.2 L 5.6 L (20.0-40.0) % [place] % (Auto) 1.5 L 2.0 L (3.0-10.0) % Eos % (Auto) 0.1 L 0.0 L (1.0-5.0) % Baso % (Auto) 0.2 0.1 (0.0-0.5) % Neut # (Auto) 18.29 H 15.52 H (2.00-7.50) K/uL Lymph # (Auto) 0.62 L 0.95 L (1.50-4.00) K/uL [place] # (Auto) 0.29 0.34 (0.20-0.80) K/uL Eos # (Auto) 0.01 L 0.00 L (0.04-0.40) K/uL Baso # (Auto) 0.03 0.01 L (0.02-0.10) K/uL Sodium 133 L (136-145) mmol/L Potassium 3.5 (3.5-5.1) mmol/L Chloride 98 (98-107) mmol/L Carbon Dioxide 26.4 (21.0-32.0) mmol/L Anion Gap 12.1 (5.0-15.0) mmol/L BUN 8 D (8-26) mg/dL Creatinine 0.59 (0.55-1.02) mg/dL Est Cr Clr Drug Dosing 76.67 mL/min Estimated GFR (MDRD) > 60 (>60) MLS/MIN BUN/Creatinine Ratio 13.6 (6-25) Glucose 142 H D (74-100) mg/dL Calcium 8.9 (8.5-10.1) mg/dL 03/24/17 Range/Units 08:30 WBC (4.0-11.0) K/uL RBC (3.80-5.80) M/uL Hgb (11.5-16.5) g/dL Hct (37.0-47.0) % MCV (76-96) fL MCH (27.0-32.0) pg MCHC (31.0-35.0) g/dL RDW (11.0-16.0) % Plt Count (150-500) K/uL MPV (6.0-10.0) fL Neut % (Auto) (45.0-70.0) % Lymph % (Auto) (20.0-40.0) % [place] % (Auto) (3.0-10.0) % Eos % (Auto) (1.0-5.0) % Baso % (Auto) (0.0-0.5) % Neut # (Auto) (2.00-7.50) K/uL Lymph # (Auto) (1.50-4.00) K/uL [place] # (Auto) (0.20-0.80) K/uL Eos # (Auto) (0.04-0.40) K/uL Baso # (Auto) (0.02-0.10) K/uL Sodium 134 L (136-145) mmol/L Potassium 3.6 (3.5-5.1) mmol/L Chloride 96 L (98-107) mmol/L Carbon Dioxide 30.1 (21.0-32.0) mmol/L Anion Gap 11.5 (5.0-15.0) mmol/L BUN 12 D (8-26) mg/dL Creatinine 0.68 (0.55-1.02) mg/dL Est Cr Clr Drug Dosing 66.53 mL/min Estimated GFR (MDRD) > 60 (>60) MLS/MIN BUN/Creatinine Ratio 17.6 (6-25) Glucose 109 H (74-100) mg/dL Calcium 9.5 (8.5-10.1) mg/dL LUCAS Results - Last 24 hrs: Microbiology 03/21/17 20:30 Aerobic Blood Culture - Preliminary Blood NO GROWTH AFTER 2 DAYS Anaerobic Blood Culture - Preliminary NO GROWTH AFTER 2 DAYS 03/21/17 20:00 Aerobic Blood Culture - Preliminary Blood NO GROWTH AFTER 2 DAYS Anaerobic Blood Culture - Preliminary NO GROWTH AFTER 2 DAYS Med Orders - Current: Current Medications Acetaminophen (Tylenol) 650 mg PO Q4H PRN PRN Reason: Pain (Mild 1-3)/fever Bisacodyl (Dulcolax) 10 mg RECTAL DAILY PRN PRN Reason: Constipation Last Admin: 03/21/17 18:05 Dose: 10 mg Dexamethasone (Dexamethasone) 4 mg IVPUSH Q6H [facility] Last Admin: 03/24/17 05:41 Dose: 4 mg Heparin Sodium (Porcine) (Heparin Sodium) 5,000 units SUBCUT Q12H [facility] Last Admin: 03/24/17 05:41 Dose: 5,000 units Dextrose/Sodium Chloride (Dextrose 5%-Normal Saline) 1,000 mls @ 75 mls/hr IV ASDIRECTED [facility] Last Admin: 03/22/17 23:33 Dose: 125 mls/hr Potassium Chloride/Dextrose/Sod Cl (D5 Ns With 20 Meq Kcl) 1,000 mls @ 125 mls/ hr IV ASDIRECTED [facility] Last Admin: 03/23/17 09:35 Dose: 125 mls/hr Lisinopril (Prinivil) 10 mg PO DAILY [facility] Last Admin: 03/24/17 08:34 Dose: 10 mg Lorazepam (Ativan) 0.5 mg IVPUSH BID PRN PRN Reason: Anxiety Melatonin (Melatonin) 3 mg PO BEDTIME [facility] Morphine Sulfate (Morphine) 2 mg IVPUSH Q2H PRN PRN Reason: Pain (severe 7-10) Last Admin: 03/21/17 18:15 Dose: 2 mg Olanzapine (Zyprexa) 5 mg PO DAILY [facility] Last Admin: 03/24/17 08:34 Dose: 5 mg Ondansetron HCl (Zofran) 4 mg IVPUSH Q6H PRN PRN Reason: Nausea/Vomiting Last Admin: 03/23/17 17:52 Dose: 4 mg Polyethylene Glycol (Miralax) 17 gm PO DAILY [facility] Last Admin: 03/24/17 08:36 Dose: 17 gm Sodium Chloride (Saline Flush) 10 ml FLUSH ASDIRECTED PRN PRN Reason: Keep Vein Open Tramadol HCl (Ultram) 50 mg PO Q6H PRN PRN Reason: Chest Pain Discontinued Medications Heparin Sodium (Porcine) (Heparin Sodium) 5,000 units SUBCUT Q8H [facility] Last Admin: 03/21/17 18:22 Dose: Not Given Melatonin (Melatonin) Confirm Administered Dose 3 mg .ROUTE .[facility]-MED ONE Stop: 03/22/17 20:01 Last Admin: 03/23/17 20:52 Dose: 3 mg Melatonin (Melatonin) Confirm Administered Dose 3 mg .ROUTE .STK-MED ONE Stop: 03/23/17 20:51 Last Admin: 03/23/17 22:56 Dose: 3 mg Sodium Biphosphate/Sodium Phosphate (Fleet Enema) 133 ml RECTAL ONETIME ONE Stop: 03/21/17 17:08 Last Admin: 03/21/17 19:20 Dose: 1 bottle - Exam General: Reports: alert, oriented HEENT: Reports: Pupils equal, Pupils reactive, EOMI, Mucous membr. moist/pink Neck: Reports: supple Lungs: Reports: Clear to auscultation, Normal respiratory effort Cardiovascular: Reports: Regular Rate, Regular Rhythm Abdomen: Reports: bowel sounds present, soft, no tenderness, no distension Extremities: Reports: no edema, normal pulses Skin: Reports: warm, intact Neurological: Reports: no new focal deficit *Q Meaningful Use (DIS) - VTE *Q VTE Criteria *Q: - Stroke *Q Stroke Criteria *Q: - AMI *Q AMI Criteria *Q:
[2017-03-24] MEDS ORDERED: Ondansetron 4 MG Tab.DIS ONE ×2 (11:37→13:30)
[2017-03-24 13:28] VITALS: BP 160/93
[2017-03-24] MEDS ORDERED: Melatonin 3 MG Tab PO SCH (20:00)
== END 2017-03-24 14:00 | disposition home or self-care (01) | DRG 392 ==
LOC: LB.CLINIC 14:09 → LB.MS 15:36 → UNDOADMIN 15:36 → LB.MS 16:56
PROVIDERS: ADMIT Internal Medicine; ATTEND Internal Medicine
DX: K59.00 Constipation, unspecified (principal); C34.12 Malignant neoplasm of upper lobe, left bronchus or lung; E87.1 Hypo-osmolality and hyponatremia; R64 Cachexia; E86.0 Dehydration; D72.829 Elevated white blood cell count, unspecified; R10.9 Unspecified abdominal pain; R11.2 Nausea with vomiting, unspecified; Z51.5 Encounter for palliative care
CPT/HCPCS: 36415; 74020; 80048; 80053; 81001; 83735; 85025; 87040; 97165-GO; A9270-GY; J1100; J1644; J2270; J2405; J3480

== ENCOUNTER 2017-04-15 15:10 | Inpatient (IN) | payer MEDICARE, BC ==
[2017-04-15] MEDS ORDERED: Sodium Chloride 0.9% 1,000 ML IV SCH ×2 (16:00→19:30)
[2017-04-15] MEDS ORDERED: Ondansetron 4 MG/2 ML SDV ONE (16:09)
[2017-04-15] MEDS: Ondansetron 4 MG/2 ML SDV IVPUSH PRN (16:16)
[2017-04-15] MEDS ORDERED: HYDROmorphone 2 MG/ML Syringe IVPUSH ONE (16:36)
[2017-04-15] MEDS ORDERED: HYDROmorphone 2 MG/ML Syringe ONE (16:40)
--- NOTE | 2017-04-15 18:09 | EDM.PDOC ---
ED HPI GENERAL MEDICAL PROBLEM - General Chief Complaint: General Stated Complaint: LOOSE STOOLS and WEAKNESS Time Seen by Provider: 04/15/17 15:15 Source of Information: Reports: Patient, Family History Limitations: Reports: No Limitations - History of Present Illness INITIAL COMMENTS - FREE TEXT/NARRATIVE: Patient is a 76 year old woman with a left upper lobe lung cancer being treated with chemotherapy who was hospitalized around 2 weeks ago for nausea, vomiting and dehydration here in [place]. She has had some nausea and weakness ever since then but the last day or so has been much worse with an inability to keep anything down and bad dry heaves. She has no fever or chills and no diarrhea. She is very weak, though and has no appetite or ability to keep anything down. No pain really associated with the cancer or illness. No other complaints today. Onset: Gradual Duration: Week(s): (2) Location: Reports: Generalized Quality: Reports: Other (Nausea, vomiting and weakness.) Severity: Severe Improves with: Reports: None Worsens with: Reports: None Context: Reports: Other (Lung Cancer.) Associated Symptoms: Reports: Cough, Loss of Appetite, Malaise, Nausea/Vomiting Treatments [employer] P[employer] SUPER[employer]OR: Reports: Other (see below) (Chemotherapy.) - Related Data Allergies Allergy/AdvReac Type Severity Reaction Status Date / Time Penicillins Allergy Swelling Verified 02/17/17 17:30 Home Meds: Home Meds HCTZ/Triamterene [Maxzide 25-37.5 MG] 1 tab PO DAILY 05/07/14 [History] Lisinopril 30 mg PO DAILY 05/07/14 [History] Melatonin 3 mg PO BEDTIME 05/07/14 [History] Pravastatin [Pravachol] 40 mg PO BEDTIME 05/07/14 [History] Ondansetron [Zofran] 4 mg IVPUSH Q8HR #0 vial 03/24/17 [Rx] Polyethylene Glycol 3350 [MiraLAX] 17 gm PO DAILY packet 03/24/17 [Rx] Past Medical History HEENT History: Reports: Impaired Vision Cardiovascular History: Reports: Hypertension Other Respiratory History: dx in December 20 with lung CA Gastrointestinal History: Reports: None [employer] History: Reports: Dysfunctional Uterine Bleeding, Other OB/BYN History: 2 CHILDREN HYSTERECTOMY AT 45 YEARS OLD Oncologic (Cancer) History: Reports: Breast, Lung Other Oncologic History: Lung CA diagnosed December 20 2016 - Infectious Disease History Infectious Disease History: Reports: Chicken Pox, Measles, Mumps, Rubella - Past Surgical History Respiratory Surgical History: Reports: None GI Surgical History: Reports: None Social & Family History - Family History Family Medical History: Noncontributory - Tobacco Use Smoking Status *Q: Never Smoker Second Hand Smoke Exposure: No - Caffeine Use Caffeine Use: Reports: Tea - Alcohol Use Days Per Week of Alcohol Use: 0 - Recreational Drug Use Recreational Drug Use: No ED ROS GENERAL - Review of Systems Review Of Systems: See Below Constitutional: Reports: Malaise, Weakness, Fatigue, Decreased Appetite HEENT: Reports: No Symptoms Respiratory: Reports: Cough Cardiovascular: Reports: No Symptoms Endocrine: Reports: No Symptoms GI/Abdominal: Reports: Nausea, Vomiting : Reports: No Symptoms Musculoskeletal: Reports: No Symptoms Skin: Reports: No Symptoms Neurological: Reports: No Symptoms Psychiatric: Reports: No Symptoms Hematologic/Lymphatic: Reports: No Symptoms Immunologic: Reports: No Symptoms ED EXAM, GENERAL - Physical Exam Exam: See Below Exam Limited By: No Limitations General Appearance: Alert, Moderate Distress, Thin, Cachetic Eye Exam: Bilateral Eye: Normal Fundi, Normal Inspection, PERRL Ears: Normal External Exam Ear Exam: Bilateral Ear: Auricle Normal, Canal Normal, TM normal Nose: Normal Inspection Throat/Mouth: Normal Inspection, Normal Lips, Normal Teeth, Normal Gums, Normal Oropharynx, Normal Voice, No Airway Compromise Head: Atraumatic, Normocephalic Neck: Normal Inspection, Supple, Non-Tender, Full Range of Motion Respiratory/Chest: Decreased Breath Sounds (ALONSO), Rales (Scattered bilaterally.) , Other (Chest x-ray shows enlarging Left Upper Lobe lung cancer mass and possible pneumonia.) Cardiovascular: Normal Peripheral Pulses, Regular Rate, Rhythm, No Edema, No Gallop, No JVD, No Murmur, No Rub GI/Abdominal: Normal Bowel Sounds, Soft, Non-Tender, No Organomegaly, No Distention, No Abnormal Bruit, No Mass Extremities: Normal Inspection, Normal Range of Motion, Non-Tender, Normal Capillary Refill, No Pedal Edema Neurological: Alert, Oriented, CN II-XII Intact, Normal Cognition, Normal Gait, Normal Reflexes, No Motor/Sensory Deficits Psychiatric: Normal Affect, Normal Mood Skin Exam: Warm, Dry, Intact, Normal Color, No Rash Lymphatic: No Adenopathy EKG INTERPRETATION EKG Date: 04/15/17 Rhythm: NSR [place]: Normal P-Wave: Present QRS: Normal ST-T: Normal QT: Normal Comparison: NA - No Prior EKG (No acute ischemic changes.) Course - Vital Signs Text/Narrative:: Patient had an uneventful ED course. She did respond well to the IV saline bolus due to her dehydration. She will be admitted to Dr. Estrada for fluids and to treat a possible pneumonia and an enlarging lung mass that may be causing her hyponatremia. We will stop the hydrochlorothiazide, start IV Rocephin and IV Zithromax and will given her normal saline at 125 ml per hour. Patient requests to be a DNR-DNI. Dr. Estrada will take over care in the am. - Orders/Labs/Meds Orders: Active Orders 24 hr Category Date Time Status CXR [Chest 1V Frontal] [CR] Stat Exams 04/15/17 16:36 Taken Ondansetron [Zofran] Med 04/15/17 15:55 Active 4 mg IVPUSH Q4H PRN Sodium Chloride 0.9% [Normal Saline] 1,000 ml Med 04/15/17 16:00 Active IV .BOLUS Medication Orders Sodium Chloride (Normal Saline) 1,000 mls @ 999 mls/hr IV .BOLUS OXANA Last Admin: 04/15/17 16:10 Dose: 999 mls/hr Ondansetron HCl (Zofran) 4 mg IVPUSH Q4H PRN PRN Reason: Nausea/Vomiting Last Admin: 04/15/17 16:16 Dose: 4 mg Labs: Laboratory Tests 04/15/17 04/15/17 Range/Units 15:45 15:45 WBC 15.2 H (4.0-11.0) K/uL RBC 4.52 (3.80-5.80) M/uL Hgb 11.5 (11.5-16.5) g/dL Hct 34.7 L (37.0-47.0) % MCV 77 (76-96) fL MCH 25.4 L (27.0-32.0) pg MCHC 33.1 (31.0-35.0) g/dL RDW 14.1 (11.0-16.0) % Plt Count 536 H (150-500) K/uL MPV 9.1 (6.0-10.0) fL Neut % (Auto) 87.6 H (45.0-70.0) % Lymph % (Auto) 5.4 L (20.0-40.0) % [place] % (Auto) 6.7 (3.0-10.0) % Eos % (Auto) 0.1 L (1.0-5.0) % Baso % (Auto) 0.2 (0.0-0.5) % Neut # (Auto) 13.36 H (2.00-7.50) K/uL Lymph # (Auto) 0.82 L (1.50-4.00) K/uL [place] # (Auto) 1.02 H (0.20-0.80) K/uL Eos # (Auto) 0.01 L (0.04-0.40) K/uL Baso # (Auto) 0.03 (0.02-0.10) K/uL Sodium 124 L (136-145) mmol/L Potassium 3.7 (3.5-5.1) mmol/L Chloride 86 L* (98-107) mmol/L Carbon Dioxide 27.8 (21.0-32.0) mmol/L Anion Gap 13.9 (5.0-15.0) mmol/L BUN 21 D (8-26) mg/dL Creatinine 0.82 D (0.55-1.02) mg/dL Est Cr Clr Drug Dosing TNP Estimated GFR (MDRD) > 60 (>60) MLS/MIN BUN/Creatinine Ratio 25.6 H (6-25) Glucose 107 H (74-100) mg/dL Calcium 9.8 (8.5-10.1) mg/dL Total Bilirubin 0.5 (0.0-1.0) mg/dL AST 48 H (15-37) U/L ALT 37 (12-78) U/L Alkaline Phosphatase 132 H (46-116) U/L Total Protein 6.6 (6.4-8.2) g/dL Albumin 2.3 L (3.4-5.0) g/dL Globulin 4.3 H (2.2-4.2) g/dL Albumin/Globulin Ratio 0.5 L (0.8-2.0) Meds: Medications Generic Name Dose Route Start Last Admin Trade Name Amos PRN Reason Stop Dose Admin Sodium Chloride 1,000 mls @ 999 mls/hr 04/15/17 16:00 04/15/17 16:10 Normal Saline IV 999 mls/hr .BOLUS OXANA Administration Ondansetron HCl 4 mg 04/15/17 15:55 04/15/17 16:16 Zofran IVPUSH 4 mg Q4H PRN Administration Nausea/Vomiting Discontinued Medications Generic Name Dose Route Start Last Admin Trade Name Amos PRN Reason Stop Dose Admin Hydromorphone HCl 0.5 mg 04/15/17 16:36 04/15/17 16:41 Dilaudid IVPUSH 04/15/17 16:37 0.5 mg ONETIME ONE Administration Hydromorphone HCl Confirm 04/15/17 16:40 04/15/17 16:39 Dilaudid Administered 04/15/17 16:41 Not Given Dose 2 mg .ROUTE .STK-MED ONE Ondansetron HCl Confirm 04/15/17 16:09 04/15/17 16:16 Zofran Administered 04/15/17 16:10 Not Given Dose 4 mg .ROUTE .STK-MED ONE Departure - Departure Time of Disposition: 18:20 Disposition: Admitted As Inpatient 66 Condition: Fair Clinical Impression: Lung cancer, upper lobe, Pneumonia, Hyponatremia - Discharge Information Forms: ED Department Discharge Additional Instructions: Please use this note as the H and P for admission. See orders. - My Orders Last 24 Hours: My Active Orders 04/15/17 15:55 Ondansetron [Zofran] 4 mg IVPUSH Q4H PRN 04/15/17 16:00 Sodium Chloride 0.9% [Normal Saline] 1,000 ml IV .BOLUS 04/15/17 16:36 CXR [Chest 1V Frontal] [CR] Stat - Assessment/Plan Last 24 Hours: My Active Orders 04/15/17 15:55 Ondansetron [Zofran] 4 mg IVPUSH Q4H PRN 04/15/17 16:00 Sodium Chloride 0.9% [Normal Saline] 1,000 ml IV .BOLUS 04/15/17 16:36 CXR [Chest 1V Frontal] [CR] Stat
[2017-04-15] MEDS ORDERED: Levofloxacin/Dextrose 5%-Water 500 MG in Premix Bag 1 BAG IV SCH (19:00)
[2017-04-15] MEDS ORDERED: Levofloxacin/Dextrose 5%-Water 500 MG in Premix Bag 1 BAG IV ONE (20:00)
[2017-04-15] MEDS: Pravastatin 40 MG Tab PO SCH (20:49)
[2017-04-15] MEDS: HYDROmorphone 2 MG/ML Syringe IVPUSH PRN (21:44)
[2017-04-15] MEDS: Ondansetron 4 MG/2 ML SDV IVPUSH SCH (21:45)
[2017-04-16] MEDS: HYDROmorphone 2 MG/ML Syringe IVPUSH PRN ×8 (04:20→21:49)
--- NOTE | 2017-04-16 07:17 | CR ---
DATE OF SERVICE: 04/15/17 CLINICAL DATA: Portable. AP CHEST: Comparison is made to a prior unenhanced chest CT dated 12/20/16. There is a right-sided Tri-Cath in place with its distal tip in the region of the superior vena cava. There is a large mass involving the left upper lobe. It extends from below the hilum to the lung apex. It is markedly increased in size compared to the prior CT. There is also soft tissue fullness in the mediastinum with widening of the mediastinum suggesting direct tumor extension or mediastinal adenopathy. The left lower lung and right lung are clear. The exam is otherwise unchanged from the prior. [id number] [facility]
[2017-04-16] MEDS: Ondansetron 4 MG/2 ML SDV IVPUSH SCH ×3 (07:20→21:49)
[2017-04-16] MEDS: Lisinopril 20 MG Tab PO SCH (07:54)
--- NOTE | 2017-04-16 11:20 | PCM.PN ---
- General Info Date of Service: 04/16/17 Subjective Update: This is a 76yo F here for diarrhea, weakness and not feeling well. She has had current treatment with Keytruda and has another treatment on Apr 27. Patient states she has been feeling stronger since her admit and fluids. She remains weak and tired. Denies any chest pain or sob but does have chronic low back pain that has an acute component the past few days. Patient denies any other concern today. - Review of Systems General: Reports: Weakness, Fatigue HEENT: Reports: No Symptoms Pulmonary: Reports: No Symptoms Cardiovascular: Reports: No Symptoms Gastrointestinal: Reports: Decreased Appetite, Diarrhea, Nausea Genitourinary: Reports: No Symptoms Musculoskeletal: Reports: No Symptoms Skin: Reports: No Symptoms Neurological: Reports: Weakness Psychiatric: Reports: No Symptoms - Patient Data Vitals - most recent: Last Vital Signs Temp 37.4 C 04/16/17 08:00 Pulse 104 H 04/16/17 08:00 Resp 20 04/16/17 08:00 BP 147/75 H 04/16/17 08:00 Pulse Ox 95 04/16/17 08:00 Weight - most recent: 59.874 kg I&O - last 24 hours: Intake & Output 04/15/17 04/16/17 04/16/17 22:59 06:59 14:59 Intake Total 1749 Output Total 480 Balance 1269 Lab Results last 24 hrs: Laboratory Results - last 24 hr 04/16/17 04/16/17 Range/Units 09:10 09:10 WBC 13.0 H (4.0-11.0) K/uL RBC 4.51 (3.80-5.80) M/uL Hgb 11.5 (11.5-16.5) g/dL Hct 35.1 L (37.0-47.0) % MCV 78 (76-96) fL MCH 25.5 L (27.0-32.0) pg MCHC 32.8 (31.0-35.0) g/dL RDW 14.2 (11.0-16.0) % Plt Count 452 (150-500) K/uL MPV 8.6 (6.0-10.0) fL Neut % (Auto) 85.5 H (45.0-70.0) % Lymph % (Auto) 5.2 L (20.0-40.0) % [place] % (Auto) 8.9 (3.0-10.0) % Eos % (Auto) 0.2 L (1.0-5.0) % Baso % (Auto) 0.2 (0.0-0.5) % Neut # (Auto) 11.10 H (2.00-7.50) K/uL Lymph # (Auto) 0.67 L (1.50-4.00) K/uL [place] # (Auto) 1.15 H (0.20-0.80) K/uL Eos # (Auto) 0.02 L (0.04-0.40) K/uL Baso # (Auto) 0.02 (0.02-0.10) K/uL Sodium 127 L (136-145) mmol/L Potassium 3.1 L (3.5-5.1) mmol/L Chloride 91 L (98-107) mmol/L Carbon Dioxide 27.7 (21.0-32.0) mmol/L Anion Gap 11.4 (5.0-15.0) mmol/L BUN 22 (8-26) mg/dL Creatinine 0.82 (0.55-1.02) mg/dL Est Cr Clr Drug Dosing TNP Estimated GFR (MDRD) > 60 (>60) MLS/MIN BUN/Creatinine Ratio 26.8 H (6-25) Glucose 101 H (74-100) mg/dL Calcium 9.1 (8.5-10.1) mg/dL Total Bilirubin 0.3 D (0.0-1.0) mg/dL AST 32 (15-37) U/L ALT 28 (12-78) U/L Alkaline Phosphatase 111 (46-116) U/L Total Protein 6.0 L (6.4-8.2) g/dL Albumin 2.2 L (3.4-5.0) g/dL Globulin 3.8 (2.2-4.2) g/dL Albumin/Globulin Ratio 0.6 L (0.8-2.0) Med Orders - Current: Current Medications Hydromorphone HCl (Dilaudid) 0.5 mg IVPUSH Q2H PRN PRN Reason: Pain Last Admin: 04/16/17 07:42 Dose: 0.5 mg Sodium Chloride (Normal Saline) 1,000 mls @ 125 mls/hr IV ASDIRECTED [facility] Last Admin: 04/15/17 20:20 Dose: 125 mls/hr Levofloxacin/Dextrose 250 mg/ (Premix) 50 mls @ 50 mls/hr IV Q24H [facility] Lisinopril (Prinivil) 30 mg PO DAILY [facility] Last Admin: 04/16/17 07:54 Dose: 30 mg Ondansetron HCl (Zofran) 4 mg IVPUSH Q4H PRN PRN Reason: Nausea/Vomiting Last Admin: 04/15/17 16:16 Dose: 4 mg Ondansetron HCl (Zofran) 4 mg IVPUSH Q8HR [facility] Last Admin: 04/16/17 07:20 Dose: 4 mg Pravastatin Sodium (Pravachol) 40 mg PO BEDTIME [facility] Last Admin: 04/15/17 20:49 Dose: 40 mg Discontinued Medications Hydromorphone HCl (Dilaudid) 0.5 mg IVPUSH ONETIME ONE Stop: 04/15/17 16:37 Last Admin: 04/15/17 16:41 Dose: 0.5 mg Hydromorphone HCl (Dilaudid) Confirm Administered Dose 2 mg .ROUTE .STK-MED ONE Stop: 04/15/17 16:41 Last Admin: 04/15/17 16:39 Dose: Not Given Sodium Chloride (Normal Saline) 1,000 mls @ 999 mls/hr IV .BOLUS [facility] Last Admin: 04/15/17 16:10 Dose: 999 mls/hr Levofloxacin/Dextrose 500 mg/ (Premix) 100 mls @ 100 mls/hr IV Q24H [facility] Last Admin: 04/16/17 07:21 Dose: 100 mls/hr Levofloxacin/Dextrose 500 mg/ (Premix) 100 mls @ 100 mls/hr IV ONETIME ONE Stop: 04/15/17 20:59 Last Admin: 04/15/17 20:42 Dose: 100 mls/hr Ondansetron HCl (Zofran) Confirm Administered Dose 4 mg .ROUTE .STK-MED ONE Stop: 04/15/17 16:10 Last Admin: 04/15/17 16:16 Dose: Not Given - Exam General: alert, oriented, cooperative HEENT: Pupils equal, Pupils reactive Neck: supple Lungs: Normal Respiratory Effort, Decreased Breath Sounds (left upper area ) Cardiovascular: Regular Rate, Regular Rhythm GI/Abdominal Exam: Normal Bowel Sounds Back Exam: Paraspinal Tenderness Extremities: Normal Inspection - Problem List & Annotations (1) Hypokalemia SNOMED Code(s): 48200590 Code(s): E87.6 - HYPOKALEMIA Status: Acute Priority: High Current Visit : Yes (2) Hyponatremia SNOMED Code(s): 48025015 Code(s): E87.1 - HYPO-OSMOLALITY AND HYPONATREMIA Status: Acute Priority : High Current Visit: Yes (3) Lung cancer, upper lobe SNOMED Code(s): 848424498 Code(s): C34.10 - MALIGNANT NEOPLASM OF UPPER LOBE, UNSP BRONCHUS OR LUNG Status: Chronic Priority: High Current Visit: Yes Qualifiers: Laterality: left Qualified Code(s): C34.12 - Malignant neoplasm of upper lobe, left bronchus or lung (4) Back pain SNOMED Code(s): 128014676 Code(s): M54.9 - DORSALGIA, UNSPECIFIED Status: Acute Priority: High Current Visit: Yes Qualifiers: Back pain location: low back pain Chronicity: chronic Back pain laterality: bilateral Sciatica presence: without sciatica Qualified Code(s) : M54.5 - Low back pain; G89.29 - Other chronic pain (5) Cachexia SNOMED Code(s): 037401869 Code(s): R64 - CACHEXIA Status: Chronic Priority: High Current Visit: Yes (6) Palliative care patient SNOMED Code(s): 181993088 Code(s): Z51.5 - ENCOUNTER FOR PALLIATIVE CARE Status: Chronic Priority: High Current Visit: Yes - Problem List Review Problem List Initiated/Reviewed/Updated: Yes - Plan Plan:: Patient will continue fluid hydration with 0.9%NS and additional KCL 40meq. We will recheck labs in AM. Discussed loperamide use and pain management for acute back pain concerns. We will continue monitoring pain control and diarrhea at this time. Continue course of antibiotics at this time but will likely discontinue in the next few days as the differential for pneumonia is low.
[2017-04-16] MEDS ORDERED: Loperamide 2 MG Cap PO PRN (11:25)
[2017-04-16] MEDS ORDERED: D5%-0.9% NaCl w/ KCl 40 meq 1,000 ML IV SCH (11:30)
[2017-04-16] MEDS: Pravastatin 40 MG Tab PO SCH (20:28)
[2017-04-16] MEDS: Levofloxacin/Dextrose 5%-Water 250 MG in Premix Bag 1 BAG IV SCH (20:33)
[2017-04-17] MEDS: HYDROmorphone 2 MG/ML Syringe IVPUSH PRN ×7 (02:10→21:43)
[2017-04-17] MEDS: Ondansetron 4 MG/2 ML SDV IVPUSH SCH ×3 (06:12→21:43)
[2017-04-17] MEDS: Lisinopril 20 MG Tab PO SCH (07:46)
[2017-04-17] MEDS ORDERED: Furosemide 40 MG/4 ML VIAL IVPUSH ONE ×2 (08:08→10:02)
[2017-04-17] MEDS ORDERED: Furosemide 40 MG/4 ML VIAL ONE (08:22)
--- NOTE | 2017-04-17 08:47 | PCM.PN ---
- General Info Date of Service: 04/17/17 Functional Status: Reports: Pain Controlled, Tolerating Diet, New Symptoms ( patient weak today and has some difficulty breathing) - Review of Systems General: Reports: Weakness HEENT: Reports: No Symptoms Pulmonary: Reports: Shortness of Breath Cardiovascular: Reports: No Symptoms Gastrointestinal: Reports: No Symptoms Genitourinary: Reports: No Symptoms Musculoskeletal: Reports: No Symptoms Skin: Reports: No Symptoms Neurological: Reports: No Symptoms Psychiatric: Reports: No Symptoms - Patient Data Vitals - Most Recent: Last Vital Signs Temp 37.2 C 04/17/17 03:38 Pulse 121 H 04/17/17 03:38 Resp 16 04/17/17 03:38 BP 158/69 H 04/17/17 07:46 Pulse Ox 93 L 04/17/17 03:38 Weight - Most Recent: 59.874 kg I&O - Last 24 Hours: Intake & Output 04/16/17 04/17/17 04/17/17 22:59 06:59 14:59 Intake Total 3905 1750 Output Total 900 275 Balance 3005 1475 Lab Results Last 24 Hours: Laboratory Results - last 24 hr 04/16/17 04/16/17 04/17/17 Range/Units 09:10 09:10 07:10 WBC 13.0 H 24.2 H* D (4.0-11.0) K/uL RBC 4.51 4.68 (3.80-5.80) M/uL Hgb 11.5 12.1 (11.5-16.5) g/dL Hct 35.1 L 37.7 (37.0-47.0) % MCV 78 81 (76-96) fL MCH 25.5 L 25.9 L (27.0-32.0) pg MCHC 32.8 32.1 (31.0-35.0) g/dL RDW 14.2 14.2 (11.0-16.0) % Plt Count 452 631 H* D (150-500) K/uL MPV 8.6 8.9 (6.0-10.0) fL Neut % (Auto) 85.5 H 90.4 H (45.0-70.0) % Lymph % (Auto) 5.2 L 3.6 L (20.0-40.0) % [place] % (Auto) 8.9 5.8 (3.0-10.0) % Eos % (Auto) 0.2 L 0.0 L (1.0-5.0) % Baso % (Auto) 0.2 0.2 (0.0-0.5) % Neut # (Auto) 11.10 H 21.84 H (2.00-7.50) K/uL Lymph # (Auto) 0.67 L 0.86 L (1.50-4.00) K/uL [place] # (Auto) 1.15 H 1.41 H (0.20-0.80) K/uL Eos # (Auto) 0.02 L 0.00 L (0.04-0.40) K/uL Baso # (Auto) 0.02 0.04 (0.02-0.10) K/uL Sodium 127 L (136-145) mmol/L Potassium 3.1 L (3.5-5.1) mmol/L Chloride 91 L (98-107) mmol/L Carbon Dioxide 27.7 (21.0-32.0) mmol/L Anion Gap 11.4 (5.0-15.0) mmol/L BUN 22 (8-26) mg/dL Creatinine 0.82 (0.55-1.02) mg/dL Est Cr Clr Drug Dosing TNP Estimated GFR (MDRD) > 60 (>60) MLS/MIN BUN/Creatinine Ratio 26.8 H (6-25) Glucose 101 H (74-100) mg/dL Calcium 9.1 (8.5-10.1) mg/dL Magnesium (1.8-2.4) mg/dL Total Bilirubin 0.3 D (0.0-1.0) mg/dL AST 32 (15-37) U/L ALT 28 (12-78) U/L Alkaline Phosphatase 111 (46-116) U/L Total Protein 6.0 L (6.4-8.2) g/dL Albumin 2.2 L (3.4-5.0) g/dL Globulin 3.8 (2.2-4.2) g/dL Albumin/Globulin Ratio 0.6 L (0.8-2.0) 07/25/17 Range/Units 07:25 WBC (4.0-11.0) K/uL RBC (3.80-5.80) M/uL Hgb (11.5-16.5) g/dL Hct (37.0-47.0) % MCV (76-96) fL MCH (27.0-32.0) pg MCHC (31.0-35.0) g/dL RDW (11.0-16.0) % Plt Count (150-500) K/uL MPV (6.0-10.0) fL Neut % (Auto) (45.0-70.0) % Lymph % (Auto) (20.0-40.0) % [place] % (Auto) (3.0-10.0) % Eos % (Auto) (1.0-5.0) % Baso % (Auto) (0.0-0.5) % Neut # (Auto) (2.00-7.50) K/uL Lymph # (Auto) (1.50-4.00) K/uL [place] # (Auto) (0.20-0.80) K/uL Eos # (Auto) (0.04-0.40) K/uL Baso # (Auto) (0.02-0.10) K/uL Sodium 133 L (136-145) mmol/L Potassium 4.7 D (3.5-5.1) mmol/L Chloride 98 (98-107) mmol/L Carbon Dioxide 28.5 (21.0-32.0) mmol/L Anion Gap 11.2 (5.0-15.0) mmol/L BUN 19 (8-26) mg/dL Creatinine 0.72 (0.55-1.02) mg/dL Est Cr Clr Drug Dosing TNP Estimated GFR (MDRD) > 60 (>60) MLS/MIN BUN/Creatinine Ratio 26.4 H (6-25) Glucose 207 H D (74-100) mg/dL Calcium 8.9 (8.5-10.1) mg/dL Magnesium 1.8 (1.8-2.4) mg/dL Total Bilirubin (0.0-1.0) mg/dL AST (15-37) U/L ALT (12-78) U/L Alkaline Phosphatase (46-116) U/L Total Protein (6.4-8.2) g/dL Albumin (3.4-5.0) g/dL Globulin (2.2-4.2) g/dL Albumin/Globulin Ratio (0.8-2.0) Med Orders - Current: Current Medications Hydromorphone HCl (Dilaudid) 1 mg IVPUSH Q2H PRN PRN Reason: Pain Last Admin: 04/17/17 08:40 Dose: 1 mg Levofloxacin/Dextrose 250 mg/ (Premix) 50 mls @ 50 mls/hr IV Q24H [facility] Last Admin: 04/16/17 20:33 Dose: 50 mls/hr Potassium Chloride 40 meq/ (Dextrose/Sodium Chloride) 1,020 mls @ 0 mls/hr IV ASDIRECTED [facility] PRN Reason: KVO Last Admin: 04/17/17 04:28 Dose: 150 mls/hr Lisinopril (Prinivil) 30 mg PO DAILY [facility] Last Admin: 04/17/17 07:46 Dose: 30 mg Loperamide HCl (Imodium) 2 mg PO Q4H PRN PRN Reason: Diarrhea Ondansetron HCl (Zofran) 4 mg IVPUSH Q4H PRN PRN Reason: Nausea/Vomiting Last Admin: 04/15/17 16:16 Dose: 4 mg Ondansetron HCl (Zofran) 4 mg IVPUSH Q8HR [facility] Last Admin: 04/17/17 06:12 Dose: 4 mg Pravastatin Sodium (Pravachol) 40 mg PO BEDTIME [facility] Last Admin: 04/16/17 20:28 Dose: 40 mg Discontinued Medications Furosemide (Lasix) 40 mg IVPUSH NOW ONE Stop: 04/17/17 08:09 Furosemide (Lasix) Confirm Administered Dose 40 mg .ROUTE .STK-MED ONE Stop: 04/17/17 08:23 Hydromorphone HCl (Dilaudid) 0.5 mg IVPUSH ONETIME ONE Stop: 04/15/17 16:37 Last Admin: 04/15/17 16:41 Dose: 0.5 mg Hydromorphone HCl (Dilaudid) Confirm Administered Dose 2 mg .ROUTE .STK-MED ONE Stop: 04/15/17 16:41 Last Admin: 04/15/17 16:39 Dose: Not Given Hydromorphone HCl (Dilaudid) 0.5 mg IVPUSH Q2H PRN PRN Reason: Pain Last Admin: 04/16/17 16:12 Dose: 0.5 mg Sodium Chloride (Normal Saline) 1,000 mls @ 999 mls/hr IV .BOLUS [facility] Last Admin: 04/15/17 16:10 Dose: 999 mls/hr Sodium Chloride (Normal Saline) 1,000 mls @ 125 mls/hr IV ASDIRECTED [facility] Last Admin: 04/15/17 20:20 Dose: 125 mls/hr Levofloxacin/Dextrose 500 mg/ (Premix) 100 mls @ 100 mls/hr IV Q24H [facility] Last Admin: 04/16/17 07:21 Dose: 100 mls/hr Levofloxacin/Dextrose 500 mg/ (Premix) 100 mls @ 100 mls/hr IV ONETIME ONE Stop: 04/15/17 20:59 Last Admin: 04/15/17 20:42 Dose: 100 mls/hr Ondansetron HCl (Zofran) Confirm Administered Dose 4 mg .ROUTE .STK-MED ONE Stop: 04/15/17 16:10 Last Admin: 04/15/17 16:16 Dose: Not Given - Exam General: Alert, Oriented, Cooperative, Mild Distress HEENT: Pupils Equal Neck: Supple Lungs: Decreased Breath Sounds, Crackles, Rales Cardiovascular: Regular Rate, Regular Rhythm GI/Abdominal Exam: Normal Bowel Sounds, Soft, Non-Tender Extremities: Normal Inspection Peripheral Pulses: 2+: Dorsalis Pedis (L), Dorsalis Pedis (R) Skin: Warm, Dry, Intact Neurological: No New Focal Deficit Psy/Mental Status: Alert, Normal Affect, Normal Mood - Problem List & Annotations (1) Hypokalemia SNOMED Code(s): 01534792 Code(s): E87.6 - HYPOKALEMIA Status: Acute Priority: High Current Visit : Yes (2) Hyponatremia SNOMED Code(s): 73188432 Code(s): E87.1 - HYPO-OSMOLALITY AND HYPONATREMIA Status: Acute Priority : High Current Visit: Yes (3) Lung cancer, upper lobe SNOMED Code(s): 923397323 Code(s): C34.10 - MALIGNANT NEOPLASM OF UPPER LOBE, UNSP BRONCHUS OR LUNG Status: Chronic Priority: High Current Visit: Yes Qualifiers: Laterality: left Qualified Code(s): C34.12 - Malignant neoplasm of upper lobe, left bronchus or lung (4) Back pain SNOMED Code(s): 562743610 Code(s): M54.9 - DORSALGIA, UNSPECIFIED Status: Acute Priority: High Current Visit: Yes Qualifiers: Back pain location: low back pain Chronicity: chronic Back pain laterality: bilateral Sciatica presence: without sciatica Qualified Code(s) : M54.5 - Low back pain; G89.29 - Other chronic pain (5) Cachexia SNOMED Code(s): 191401385 Code(s): R64 - CACHEXIA Status: Chronic Priority: High Current Visit: Yes (6) Palliative care patient SNOMED Code(s): 489057726 Code(s): Z51.5 - ENCOUNTER FOR PALLIATIVE CARE Status: Chronic Priority: High Current Visit: Yes - Problem List Review Problem List Initiated/Reviewed/Updated: Yes - My Orders Last 24 Hours: My Active Orders 04/16/17 11:25 Loperamide [Imodium] 2 mg PO Q4H PRN 04/16/17 13:00 Potassium Chloride 40 meq Dextrose 5%-0.9% NaCl [Dextrose 5%-Normal Saline] 1, 000 ml IV ASDIRECTED 04/16/17 15:52 CULTURE MRSA SURVEY [] Routine 04/16/17 16:32 HYDROmorphone [Dilaudid] 1 mg IVPUSH Q2H PRN 04/17/17 00:34 CULTURE SPUTUM + SMEAR [RM] Routine 04/17/17 08:10 Urinary Catheter Assessment [RC] ASDIRECTED 04/17/17 08:15 Woods Catheter Insertion [Insert Urinary Catheter] [OM.PC] Q24H 04/17/17 08:33 Urinary Catheter Assessment [RC] ASDIRECTED 04/17/17 08:45 Insert Woods Catheter [Insert Urinary Catheter] [OM.PC] Q24H 04/17/17 Breakfast Regular Diet [DIET] - Plan Plan:: Patient will continue fluid hydration with 0.9%NS and additional KCL 40meq. We will recheck labs in AM. Discussed loperamide use and pain management for acute back pain concerns. We will continue monitoring pain control and diarrhea at this time. Continue course of antibiotics at this time but will likely discontinue in the next few days as the differential for pneumonia is low. 04/17/17 Woods to be placed. Lasix 40mg IV ordered. Will monitor fluid status closely. Elevated WBC likely due to metastatic cancer - patient does not have a fever or chills. Repeat labs as directed. Patient is DNR/DNI. Hold fluid resuscitation at this time.
[2017-04-17] MEDS: Furosemide 40 MG/4 ML VIAL IVPUSH SCH (10:10)
[2017-04-17] MEDS: Levofloxacin/Dextrose 5%-Water 250 MG in Premix Bag 1 BAG IV SCH (19:49)
[2017-04-17] MEDS: Pravastatin 40 MG Tab PO SCH (21:37)
[2017-04-18] MEDS: HYDROmorphone 2 MG/ML Syringe IVPUSH PRN ×4 (03:55→13:43)
[2017-04-18] MEDS: Ondansetron 4 MG/2 ML SDV IVPUSH SCH (06:02)
[2017-04-18] MEDS ORDERED: fentaNYL 25 MCG/HR Transdermal Patch TRDERM SCH (08:00)
[2017-04-18] MEDS: Furosemide 40 MG/4 ML VIAL IVPUSH SCH (08:24)
[2017-04-18] MEDS: Lisinopril 20 MG Tab PO SCH (08:25)
[2017-04-18] MEDS ORDERED: Simethicone 80 MG Tab.Chew PO PRN (10:00)
--- NOTE | 2017-04-18 10:04 | PCM.PN ---
- General Info Date of Service: 04/18/17 Subjective Update: Patient states she is feeling better today. She has increased appetite and feels hungry for breakfast. Patient denies other complaints at this time and does seem comfortable and breathing well. Functional Status: Reports: Pain Controlled, Tolerating Diet - Review of Systems General: Reports: Weakness, Fatigue HEENT: Reports: No Symptoms Pulmonary: Reports: Shortness of Breath Cardiovascular: Reports: No Symptoms Gastrointestinal: Reports: Diarrhea Genitourinary: Reports: No Symptoms Musculoskeletal: Reports: Back Pain Skin: Reports: No Symptoms Neurological: Reports: Weakness Psychiatric: Reports: No Symptoms - Patient Data Vitals - Most Recent: Last Vital Signs Temp 36.4 C 04/18/17 03:59 Pulse 99 04/18/17 03:59 Resp 15 04/18/17 03:59 BP 124/68 04/18/17 08:25 Pulse Ox 93 L 04/18/17 06:00 Weight - Most Recent: 59.874 kg I&O - Last 24 Hours: Intake & Output 04/17/17 04/18/17 04/18/17 22:59 06:59 14:59 Intake Total 853 573 Output Total 3300 500 Balance -2447 73 Lab Results Last 24 Hours: Laboratory Results - last 24 hr 04/18/17 04/18/17 Range/Units 07:50 07:50 WBC 17.8 H D (4.0-11.0) K/uL RBC 4.26 (3.80-5.80) M/uL Hgb 10.9 L (11.5-16.5) g/dL Hct 34.5 L (37.0-47.0) % MCV 81 (76-96) fL MCH 25.6 L (27.0-32.0) pg MCHC 31.6 (31.0-35.0) g/dL RDW 14.0 (11.0-16.0) % Plt Count 459 D (150-500) K/uL MPV 8.9 (6.0-10.0) fL Neut % (Auto) 85.4 H (45.0-70.0) % Lymph % (Auto) 4.9 L (20.0-40.0) % [place] % (Auto) 8.9 (3.0-10.0) % Eos % (Auto) 0.6 L (1.0-5.0) % Baso % (Auto) 0.2 (0.0-0.5) % Neut # (Auto) 15.23 H (2.00-7.50) K/uL Lymph # (Auto) 0.87 L (1.50-4.00) K/uL [place] # (Auto) 1.58 H (0.20-0.80) K/uL Eos # (Auto) 0.10 (0.04-0.40) K/uL Baso # (Auto) 0.03 (0.02-0.10) K/uL Sodium 138 (136-145) mmol/L Potassium 3.4 L D (3.5-5.1) mmol/L Chloride 97 L (98-107) mmol/L Carbon Dioxide 36.1 H D (21.0-32.0) mmol/L Anion Gap 8.3 (5.0-15.0) mmol/L BUN 18 (8-26) mg/dL Creatinine 0.76 (0.55-1.02) mg/dL Est Cr Clr Drug Dosing TNP Estimated GFR (MDRD) > 60 (>60) MLS/MIN BUN/Creatinine Ratio 23.7 (6-25) Glucose 134 H D (74-100) mg/dL Calcium 9.2 (8.5-10.1) mg/dL Magnesium 1.6 L (1.8-2.4) mg/dL Total Bilirubin 0.2 D (0.0-1.0) mg/dL AST 24 (15-37) U/L ALT 26 (12-78) U/L Alkaline Phosphatase 105 (46-116) U/L Total Protein 5.7 L (6.4-8.2) g/dL Albumin 2.1 L (3.4-5.0) g/dL Globulin 3.6 (2.2-4.2) g/dL Albumin/Globulin Ratio 0.6 L (0.8-2.0) Ángel Results Last 24 Hours: Microbiology 04/17/17 Unknown Gram Stain - Final Sputum - Expectorated Sputum Culture - Preliminary Normal Cindy 04/16/17 15:52 MRSA Surveillance Culture - Final Nasal, Unspecified NO MRSA ISOLATED Med Orders - Current: Current Medications Furosemide (Lasix) 40 mg IVPUSH DAILY [facility] Last Admin: 04/18/17 08:24 Dose: 40 mg Hydromorphone HCl (Dilaudid) 1 mg IVPUSH Q2H PRN PRN Reason: Pain Last Admin: 04/18/17 03:55 Dose: 1 mg Levofloxacin/Dextrose 250 mg/ (Premix) 50 mls @ 50 mls/hr IV Q24H [facility] Last Admin: 04/17/17 19:49 Dose: 50 mls/hr Potassium Chloride 40 meq/ (Dextrose/Sodium Chloride) 1,020 mls @ 0 mls/hr IV ASDIRECTED [facility] PRN Reason: KVO Last Admin: 04/18/17 03:00 Dose: 30 mls/hr Lisinopril (Prinivil) 30 mg PO DAILY [facility] Last Admin: 04/18/17 08:25 Dose: 30 mg Loperamide HCl (Imodium) 2 mg PO Q4H PRN PRN Reason: Diarrhea Magnesium Oxide (Magnesium Oxide) 400 mg PO DAILY [facility] Ondansetron HCl (Zofran) 4 mg IVPUSH Q4H PRN PRN Reason: Nausea/Vomiting Last Admin: 04/15/17 16:16 Dose: 4 mg Ondansetron HCl (Zofran) 4 mg IVPUSH Q8HR [facility] Last Admin: 04/18/17 06:02 Dose: 4 mg Potassium Chloride (Klor-Con M20) 40 meq PO DAILY [facility] Pravastatin Sodium (Pravachol) 40 mg PO BEDTIME [facility] Last Admin: 04/17/17 21:37 Dose: 40 mg Discontinued Medications Furosemide (Lasix) 40 mg IVPUSH NOW ONE Stop: 04/17/17 08:09 Last Admin: 04/17/17 08:10 Dose: 40 mg Furosemide (Lasix) Confirm Administered Dose 40 mg .ROUTE .STK-MED ONE Stop: 04/17/17 08:23 Last Admin: 04/17/17 08:45 Dose: Not Given Furosemide (Lasix) 40 mg IVPUSH NOW ONE Stop: 04/17/17 10:03 Last Admin: 04/17/17 08:10 Dose: 40 mg Hydromorphone HCl (Dilaudid) 0.5 mg IVPUSH ONETIME ONE Stop: 04/15/17 16:37 Last Admin: 04/15/17 16:41 Dose: 0.5 mg Hydromorphone HCl (Dilaudid) Confirm Administered Dose 2 mg .ROUTE .STK-MED ONE Stop: 04/15/17 16:41 Last Admin: 04/15/17 16:39 Dose: Not Given Hydromorphone HCl (Dilaudid) 0.5 mg IVPUSH Q2H PRN PRN Reason: Pain Last Admin: 04/16/17 16:12 Dose: 0.5 mg Sodium Chloride (Normal Saline) 1,000 mls @ 999 mls/hr IV .BOLUS [facility] Last Admin: 04/15/17 16:10 Dose: 999 mls/hr Sodium Chloride (Normal Saline) 1,000 mls @ 125 mls/hr IV ASDIRECTED [facility] Last Admin: 04/15/17 20:20 Dose: 125 mls/hr Levofloxacin/Dextrose 500 mg/ (Premix) 100 mls @ 100 mls/hr IV Q24H [facility] Last Admin: 04/16/17 07:21 Dose: 100 mls/hr Levofloxacin/Dextrose 500 mg/ (Premix) 100 mls @ 100 mls/hr IV ONETIME ONE Stop: 04/15/17 20:59 Last Admin: 04/15/17 20:42 Dose: 100 mls/hr Ondansetron HCl (Zofran) Confirm Administered Dose 4 mg .ROUTE .STK-MED ONE Stop: 04/15/17 16:10 Last Admin: 04/15/17 16:16 Dose: Not Given - Exam General: Alert, Oriented HEENT: Pupils Equal, Pupils Reactive, EOMI Lungs: Decreased Breath Sounds, Crackles (decreased) Cardiovascular: Regular Rate, Regular Rhythm GI/Abdominal Exam: Normal Bowel Sounds Back Exam: Paraspinal Tenderness Extremities: Normal Inspection Peripheral Pulses: 2+: Dorsalis Pedis (L), Dorsalis Pedis (R) Skin: Warm, Dry, Intact - Problem List & Annotations (1) Hypokalemia SNOMED Code(s): 96950775 Code(s): E87.6 - HYPOKALEMIA Status: Acute Priority: High Current Visit : Yes (2) Hyponatremia SNOMED Code(s): 74695187 Code(s): E87.1 - HYPO-OSMOLALITY AND HYPONATREMIA Status: Resolved Priority: High Current Visit: Yes (3) Lung cancer, upper lobe SNOMED Code(s): 329783139 Code(s): C34.10 - MALIGNANT NEOPLASM OF UPPER LOBE, UNSP BRONCHUS OR LUNG Status: Chronic Priority: High Current Visit: Yes Qualifiers: Laterality: left Qualified Code(s): C34.12 - Malignant neoplasm of upper lobe, left bronchus or lung (4) Back pain SNOMED Code(s): 086004862 Code(s): M54.9 - DORSALGIA, UNSPECIFIED Status: Acute Priority: High Current Visit: Yes Qualifiers: Back pain location: low back pain Chronicity: chronic Back pain laterality: bilateral Sciatica presence: without sciatica Qualified Code(s) : M54.5 - Low back pain; G89.29 - Other chronic pain (5) Cachexia SNOMED Code(s): 557038891 Code(s): R64 - CACHEXIA Status: Chronic Priority: High Current Visit: Yes (6) Palliative care patient SNOMED Code(s): 659963435 Code(s): Z51.5 - ENCOUNTER FOR PALLIATIVE CARE Status: Chronic Priority: High Current Visit: Yes - Problem List Review Problem List Initiated/Reviewed/Updated: Yes - My Orders Last 24 Hours: My Active Orders 04/17/17 10:15 Furosemide [Lasix] 40 mg IVPUSH DAILY 04/18/17 09:45 Magnesium Oxide 400 mg PO DAILY Potassium Chloride [Klor-Con M20] 40 meq PO DAILY - Plan Plan:: Patient will continue fluid hydration with 0.9%NS and additional KCL 40meq. We will recheck labs in AM. Discussed loperamide use and pain management for acute back pain concerns. We will continue monitoring pain control and diarrhea at this time. Continue course of antibiotics at this time but will likely discontinue in the next few days as the differential for pneumonia is low. 04/17/17 Woods to be placed. Lasix 40mg IV ordered. Will monitor fluid status closely. Elevated WBC likely due to metastatic cancer - patient does not have a fever or chills. Repeat labs as directed. Patient is DNR/DNI. Hold fluid resuscitation at this time. 04/18/17 Patient plan discussed. We will give another dose of 40mgIV lasix and monitor output. Patient will be continued on Levofloxacin and repeat labs in am.
[2017-04-18] MEDS ORDERED: Polyethylene Glycol 3350 Powder 17 GM Packet PO SCH (14:00)
[2017-04-18] MEDS: Pravastatin 40 MG Tab PO SCH (20:40)
[2017-04-18] MEDS: Levofloxacin/Dextrose 5%-Water 250 MG in Premix Bag 1 BAG IV SCH (20:55)
[2017-04-19] MEDS ORDERED: Zolpidem 5 MG Tab PO PRN (00:07)
[2017-04-19] MEDS ORDERED: LORazepam 1 MG Tab PO ONE (00:11)
[2017-04-19] MEDS ORDERED: Zolpidem 5 MG Tab ONE (00:17)
[2017-04-19] MEDS: Ondansetron 4 MG/2 ML SDV IVPUSH SCH ×5 (01:47→21:05)
[2017-04-19] MEDS: Ondansetron 4 MG/2 ML SDV IVPUSH PRN ×4 (07:42→18:37)
[2017-04-19] MEDS: Lisinopril 20 MG Tab PO SCH (07:43)
[2017-04-19] MEDS: Magnesium Oxide 400 MG Tab PO SCH ×2 (07:43→10:49)
[2017-04-19] MEDS: Potassium Chloride 20 MEQ Tab.ER PO SCH ×3 (07:43→19:31)
[2017-04-19] MEDS: Polyethylene Glycol 3350 Powder 17 GM Packet PO SCH ×2 (07:44→07:45)
[2017-04-19] MEDS: Furosemide 40 MG/4 ML VIAL IVPUSH SCH (07:46)
--- NOTE | 2017-04-19 08:07 | PCM.PN ---
- General Info Date of Service: 04/19/17 Subjective Update: Patient states she is doing ok. She had difficulty falling asleep despite use of ambian and ativan. She states she was up every hour and could not fall back asleep. She states she had a lot of company last night. Patient denies any pain since the application of the fentanyl patch. She denies recent BM but has no abdominal pain or distention. She continues to have mild sob. - Review of Systems General: Reports: Weakness HEENT: Reports: No Symptoms Pulmonary: Reports: Shortness of Breath Cardiovascular: Reports: No Symptoms Gastrointestinal: Reports: Constipation Genitourinary: Reports: No Symptoms Musculoskeletal: Reports: No Symptoms Skin: Reports: No Symptoms Neurological: Reports: No Symptoms Psychiatric: Reports: No Symptoms - Patient Data Vitals - Most Recent: Last Vital Signs Temp 36.6 C 04/19/17 07:51 Pulse 104 H 04/19/17 07:51 Resp 20 04/19/17 07:51 BP 142/76 H 04/19/17 07:51 Pulse Ox 96 04/19/17 07:51 Weight - Most Recent: 59.874 kg I&O - Last 24 Hours: Intake & Output 04/18/17 04/19/17 04/19/17 22:59 06:59 14:59 Intake Total 580 923 Output Total 1625 240 Balance -1045 683 Lab Results Last 24 Hours: Laboratory Results - last 24 hr 04/18/17 04/18/17 04/19/17 Range/Units 07:50 07:50 07:30 WBC 17.8 H D 22.0 H* D (4.0-11.0) K/uL RBC 4.26 4.37 (3.80-5.80) M/uL Hgb 10.9 L 11.2 L (11.5-16.5) g/dL Hct 34.5 L 34.6 L (37.0-47.0) % MCV 81 79 (76-96) fL MCH 25.6 L 25.6 L (27.0-32.0) pg MCHC 31.6 32.4 (31.0-35.0) g/dL RDW 14.0 14.2 (11.0-16.0) % Plt Count 459 D 466 (150-500) K/uL MPV 8.9 9.0 (6.0-10.0) fL Neut % (Auto) 85.4 H 89.6 H (45.0-70.0) % Lymph % (Auto) 4.9 L 4.2 L (20.0-40.0) % Smith % (Auto) 8.9 5.9 (3.0-10.0) % Eos % (Auto) 0.6 L 0.2 L (1.0-5.0) % Baso % (Auto) 0.2 0.1 (0.0-0.5) % Neut # (Auto) 15.23 H 19.69 H (2.00-7.50) K/uL Lymph # (Auto) 0.87 L 0.93 L (1.50-4.00) K/uL Smith # (Auto) 1.58 H 1.30 H (0.20-0.80) K/uL Eos # (Auto) 0.10 0.05 (0.04-0.40) K/uL Baso # (Auto) 0.03 0.03 (0.02-0.10) K/uL Sodium 138 (136-145) mmol/L Potassium 3.4 L D (3.5-5.1) mmol/L Chloride 97 L (98-107) mmol/L Carbon Dioxide 36.1 H D (21.0-32.0) mmol/L Anion Gap 8.3 (5.0-15.0) mmol/L BUN 18 (8-26) mg/dL Creatinine 0.76 (0.55-1.02) mg/dL Est Cr Clr Drug Dosing TNP Estimated GFR (MDRD) > 60 (>60) MLS/MIN BUN/Creatinine Ratio 23.7 (6-25) Glucose 134 H D (74-100) mg/dL Calcium 9.2 (8.5-10.1) mg/dL Magnesium 1.6 L (1.8-2.4) mg/dL Total Bilirubin 0.2 D (0.0-1.0) mg/dL AST 24 (15-37) U/L ALT 26 (12-78) U/L Alkaline Phosphatase 105 (46-116) U/L Total Protein 5.7 L (6.4-8.2) g/dL Albumin 2.1 L (3.4-5.0) g/dL Globulin 3.6 (2.2-4.2) g/dL Albumin/Globulin Ratio 0.6 L (0.8-2.0) Ángel Results Last 24 Hours: Microbiology 04/17/17 Unknown Gram Stain - Final Sputum - Expectorated Sputum Culture - Preliminary Normal Cindy Med Orders - Current: Current Medications Fentanyl (Duragesic) 25 mcg TRDERM Q72H [facility] Last Admin: 04/18/17 14:07 Dose: 25 mcg Furosemide (Lasix) 40 mg IVPUSH DAILY [facility] Last Admin: 04/19/17 07:46 Dose: 40 mg Hydromorphone HCl (Dilaudid) 1 mg IVPUSH Q2H PRN PRN Reason: Pain Last Admin: 04/18/17 13:43 Dose: 1 mg Levofloxacin/Dextrose 250 mg/ (Premix) 50 mls @ 50 mls/hr IV Q24H [facility] Last Admin: 04/18/17 20:55 Dose: 50 mls/hr Potassium Chloride 40 meq/ (Dextrose/Sodium Chloride) 1,020 mls @ 0 mls/hr IV ASDIRECTED [facility] PRN Reason: KVO Last Admin: 04/18/17 03:00 Dose: 30 mls/hr Lisinopril (Prinivil) 30 mg PO DAILY [facility] Last Admin: 04/19/17 07:43 Dose: 30 mg Loperamide HCl (Imodium) 2 mg PO Q4H PRN PRN Reason: Diarrhea Magnesium Oxide (Magnesium Oxide) 400 mg PO DAILY [facility] Last Admin: 04/19/17 07:43 Dose: 400 mg Ondansetron HCl (Zofran) 4 mg IVPUSH Q4H PRN PRN Reason: Nausea/Vomiting Last Admin: 04/19/17 07:42 Dose: 4 mg Ondansetron HCl (Zofran) 4 mg IVPUSH Q8HR [facility] Last Admin: 04/19/17 06:15 Dose: 4 mg Polyethylene Glycol (Miralax) 17 gm PO DAILY@0800 [facility] Last Admin: 04/19/17 07:45 Dose: 17 gm Potassium Chloride (Klor-Con M20) 40 meq PO DAILY [facility] Last Admin: 04/19/17 07:43 Dose: 40 meq Pravastatin Sodium (Pravachol) 40 mg PO BEDTIME [facility] Last Admin: 04/18/17 20:40 Dose: 40 mg Simethicone (Simethicone) 80 mg PO Q4H PRN PRN Reason: Heartburn Last Admin: 04/18/17 11:55 Dose: 80 mg Discontinued Medications Furosemide (Lasix) 40 mg IVPUSH NOW ONE Stop: 04/17/17 08:09 Last Admin: 04/17/17 08:10 Dose: 40 mg Furosemide (Lasix) Confirm Administered Dose 40 mg .ROUTE .STK-MED ONE Stop: 04/17/17 08:23 Last Admin: 04/17/17 08:45 Dose: Not Given Furosemide (Lasix) 40 mg IVPUSH NOW ONE Stop: 04/17/17 10:03 Last Admin: 04/17/17 08:10 Dose: 40 mg Hydromorphone HCl (Dilaudid) 0.5 mg IVPUSH ONETIME ONE Stop: 04/15/17 16:37 Last Admin: 04/15/17 16:41 Dose: 0.5 mg Hydromorphone HCl (Dilaudid) Confirm Administered Dose 2 mg .ROUTE .STK-MED ONE Stop: 04/15/17 16:41 Last Admin: 04/15/17 16:39 Dose: Not Given Hydromorphone HCl (Dilaudid) 0.5 mg IVPUSH Q2H PRN PRN Reason: Pain Last Admin: 04/16/17 16:12 Dose: 0.5 mg Sodium Chloride (Normal Saline) 1,000 mls @ 999 mls/hr IV .BOLUS [facility] Last Admin: 04/15/17 16:10 Dose: 999 mls/hr Sodium Chloride (Normal Saline) 1,000 mls @ 125 mls/hr IV ASDIRECTED [facility] Last Admin: 04/15/17 20:20 Dose: 125 mls/hr Levofloxacin/Dextrose 500 mg/ (Premix) 100 mls @ 100 mls/hr IV Q24H [facility] Last Admin: 04/16/17 07:21 Dose: 100 mls/hr Levofloxacin/Dextrose 500 mg/ (Premix) 100 mls @ 100 mls/hr IV ONETIME ONE Stop: 04/15/17 20:59 Last Admin: 04/15/17 20:42 Dose: 100 mls/hr Lorazepam (Ativan) 1 mg PO ONETIME ONE Stop: 04/19/17 00:12 Ondansetron HCl (Zofran) Confirm Administered Dose 4 mg .ROUTE .STK-MED ONE Stop: 04/15/17 16:10 Last Admin: 04/15/17 16:16 Dose: Not Given Polyethylene Glycol (Miralax) 17 gm PO DAILY [facility] Last Admin: 04/18/17 14:07 Dose: 17 gm Zolpidem Tartrate (Ambien) 5 mg PO BEDTIME PRN PRN Reason: Insomnia Stop: 04/19/17 00:15 Last Admin: 04/19/17 00:21 Dose: 5 mg Zolpidem Tartrate (Ambien) Confirm Administered Dose 5 mg .ROUTE .STK-MED ONE Stop: 04/19/17 00:18 Last Admin: 04/19/17 01:47 Dose: Not Given - Exam Quality Assessment: Supplemental Oxygen General: Alert, Oriented HEENT: Pupils Equal, Pupils Reactive, EOMI Neck: Supple Lungs: Clear to Auscultation, Decreased Breath Sounds Cardiovascular: Regular Rate, Regular Rhythm GI/Abdominal Exam: Normal Bowel Sounds, Soft, Non-Tender Extremities: Normal Inspection Peripheral Pulses: 2+: Dorsalis Pedis (L), Dorsalis Pedis (R) Skin: Warm, Dry, Intact Neurological: No New Focal Deficit Psy/Mental Status: Alert, Normal Affect, Normal Mood - Problem List & Annotations (1) Hypokalemia SNOMED Code(s): 52454577 Code(s): E87.6 - HYPOKALEMIA Status: Acute Priority: High Current Visit : Yes (2) Hyponatremia SNOMED Code(s): 16461502 Code(s): E87.1 - HYPO-OSMOLALITY AND HYPONATREMIA Status: Resolved Priority: High Current Visit: Yes (3) Lung cancer, upper lobe SNOMED Code(s): 767111653 Code(s): C34.10 - MALIGNANT NEOPLASM OF UPPER LOBE, UNSP BRONCHUS OR LUNG Status: Chronic Priority: High Current Visit: Yes Qualifiers: Laterality: left Qualified Code(s): C34.12 - Malignant neoplasm of upper lobe, left bronchus or lung (4) Back pain SNOMED Code(s): 703421419 Code(s): M54.9 - DORSALGIA, UNSPECIFIED Status: Acute Priority: High Current Visit: Yes Qualifiers: Back pain location: low back pain Chronicity: chronic Back pain laterality: bilateral Sciatica presence: without sciatica Qualified Code(s) : M54.5 - Low back pain; G89.29 - Other chronic pain (5) Cachexia SNOMED Code(s): 764056121 Code(s): R64 - CACHEXIA Status: Chronic Priority: High Current Visit: Yes (6) Palliative care patient SNOMED Code(s): 269786586 Code(s): Z51.5 - ENCOUNTER FOR PALLIATIVE CARE Status: Chronic Priority: High Current Visit: Yes - Problem List Review Problem List Initiated/Reviewed/Updated: Yes - My Orders Last 24 Hours: My Active Orders 04/18/17 08:00 fentaNYL [Duragesic] 25 mcg TRDERM Q72H 04/18/17 09:45 Magnesium Oxide 400 mg PO DAILY Potassium Chloride [Klor-Con M20] 40 meq PO DAILY 04/18/17 10:00 Simethicone 80 mg PO Q4H PRN 04/19/17 05:11 BASIC METABOLIC PANEL,BMP [CHEM] AM 04/19/17 08:00 Polyethylene Glycol 3350 [MiraLAX] 17 gm PO DAILY@0800 04/20/17 05:11 BASIC METABOLIC PANEL,BMP [CHEM] AM CBC WITH AUTO DIFF [HEME] AM - Plan Plan:: Patient will continue fluid hydration with 0.9%NS and additional KCL 40meq. We will recheck labs in AM. Discussed loperamide use and pain management for acute back pain concerns. We will continue monitoring pain control and diarrhea at this time. Continue course of antibiotics at this time but will likely discontinue in the next few days as the differential for pneumonia is low. 04/17/17 Woods to be placed. Lasix 40mg IV ordered. Will monitor fluid status closely. Elevated WBC likely due to metastatic cancer - patient does not have a fever or chills. Repeat labs as directed. Patient is DNR/DNI. Hold fluid resuscitation at this time. 04/18/17 Patient plan discussed. We will give another dose of 40mgIV lasix and monitor output. Patient will be continued on Levofloxacin and repeat labs in am. 04/19/[address] Chest today for evaluation of continued sob. Patient has no pain and on Fentanyl. F/u labs today.
[2017-04-19] MEDS: HYDROmorphone 2 MG/ML Syringe IVPUSH PRN ×4 (09:29→21:06)
[2017-04-19] MEDS: Clindamycin Phosphate 600 MG in Dextrose 5% in Water 50 ML IV SCH ×4 (11:50→21:05)
[2017-04-19] MEDS: Pravastatin 40 MG Tab PO SCH (19:31)
[2017-04-20] MEDS: Clindamycin Phosphate 600 MG in Dextrose 5% in Water 50 ML IV SCH ×4 (01:00→06:17)
[2017-04-20] MEDS ORDERED: Clindamycin Phosphate 600 MG/4 ML SDV ONE (01:28)
[2017-04-20] MEDS: HYDROmorphone 2 MG/ML Syringe IVPUSH PRN ×2 (04:01→21:35)
[2017-04-20] MEDS: Ondansetron 4 MG/2 ML SDV IVPUSH SCH ×3 (06:17→22:55)
[2017-04-20] MEDS: Potassium Chloride 20 MEQ Tab.ER PO SCH (07:54)
[2017-04-20] MEDS: Magnesium Oxide 400 MG Tab PO SCH (07:54)
[2017-04-20] MEDS: Lisinopril 20 MG Tab PO SCH (07:54)
[2017-04-20] MEDS: Polyethylene Glycol 3350 Powder 17 GM Packet PO SCH (08:05)
[2017-04-20] MEDS: Furosemide 40 MG/4 ML VIAL IVPUSH SCH (10:12)
[2017-04-20] MEDS ORDERED: Spironolactone 25 MG Tab PO SCH (10:45)
[2017-04-20] MEDS ORDERED: Heparin Sodium/D5W 25,000 UNITS/500 ML BAG IV SCH (10:45)
--- NOTE | 2017-04-20 11:33 | PCM.PN ---
- General Info Date of Service: 04/20/17 Subjective Update: Patient has had improved breathing compared to yesterday. CT results pending final read. Discussed with patient regarding concerns of CT especially placement and area surrounding port-a-cath tip. Patient counseled on possible clot vs abscess formation vs aspiration and medication use with possible displacement of catheter. - Review of Systems General: Reports: Weakness HEENT: Reports: No Symptoms Pulmonary: Reports: Shortness of Breath Cardiovascular: Reports: Dyspnea on Exertion Gastrointestinal: Reports: No Symptoms Genitourinary: Reports: No Symptoms Musculoskeletal: Reports: No Symptoms Skin: Reports: No Symptoms Neurological: Reports: No Symptoms Psychiatric: Reports: No Symptoms - Patient Data Vitals - Most Recent: Last Vital Signs Temp 36.2 C 04/20/17 08:00 Pulse 96 04/20/17 08:00 Resp 22 H 04/20/17 08:00 BP 135/68 04/20/17 08:00 Pulse Ox 95 04/20/17 08:00 Weight - Most Recent: 59.874 kg I&O - Last 24 Hours: Intake & Output 04/19/17 04/20/17 04/20/17 22:59 06:59 14:59 Intake Total 1050 100 Output Total 1600 250 Balance -550 -150 Lab Results Last 24 Hours: Laboratory Results - last 24 hr 04/20/17 04/20/17 04/20/17 Range/Units 07:20 07:20 10:42 WBC 26.6 H* D (4.0-11.0) K/uL RBC 4.46 (3.80-5.80) M/uL Hgb 11.4 L (11.5-16.5) g/dL Hct 35.9 L (37.0-47.0) % MCV 81 (76-96) fL MCH 25.6 L (27.0-32.0) pg MCHC 31.8 (31.0-35.0) g/dL RDW 14.5 (11.0-16.0) % Plt Count 549 H (150-500) K/uL MPV 9.6 (6.0-10.0) fL Neut % (Auto) 90.4 H (45.0-70.0) % Lymph % (Auto) 3.6 L (20.0-40.0) % Linn % (Auto) 5.6 (3.0-10.0) % Eos % (Auto) 0.3 L (1.0-5.0) % Baso % (Auto) 0.1 (0.0-0.5) % Neut # (Auto) 24.09 H (2.00-7.50) K/uL Lymph # (Auto) 0.96 L (1.50-4.00) K/uL Linn # (Auto) 1.49 H (0.20-0.80) K/uL Eos # (Auto) 0.08 (0.04-0.40) K/uL Baso # (Auto) 0.02 (0.02-0.10) K/uL Sodium 138 (136-145) mmol/L Potassium 3.8 D (3.5-5.1) mmol/L Chloride 94 L (98-107) mmol/L Carbon Dioxide 39.1 H (21.0-32.0) mmol/L Anion Gap 8.7 (5.0-15.0) mmol/L BUN 18 (8-26) mg/dL Creatinine 0.71 (0.55-1.02) mg/dL Est Cr Clr Drug Dosing TNP Estimated GFR (MDRD) > 60 (>60) MLS/MIN BUN/Creatinine Ratio 25.4 H (6-25) Glucose 112 H (74-100) mg/dL Calcium 9.3 (8.5-10.1) mg/dL Urine Color Yellow Urine Appearance Clear (CLEAR) Urine pH 6.0 (5.0-8.0) Ur Specific [place] >= 1.030 (1.003-1.030) Urine Protein 100 H (NEGATIVE) mg/dL Urine Glucose (UA) Negative (NEGATIVE) mg/dL Urine Ketones Negative (NEGATIVE) mg/dL Urine Occult Blood Moderate H (NEGATIVE) Urine Nitrite Negative (NEGATIVE) Urine Bilirubin Negative (NEGATIVE) Urine Urobilinogen 0.2 (0.2-1.0) E.U./dL Ur Leukocyte Esterase Negative (NEGATIVE) Urine RBC 20-30 H /HPF Urine WBC 0-5 H /HPF Ur Squamous Epith Cells Rare /HPF Urine Bacteria Not seen /HPF Ángel Results Last 24 Hours: Microbiology 04/17/17 Unknown Gram Stain - Final Sputum - Expectorated Sputum Culture - Final Normal Cindy Med Orders - Current: Current Medications Fentanyl (Duragesic) 25 mcg TRDERM Q72H [facility] Last Admin: 04/18/17 14:07 Dose: 25 mcg Furosemide (Lasix) 40 mg IVPUSH DAILY [facility] Last Admin: 04/20/17 10:12 Dose: Not Given Hydromorphone HCl (Dilaudid) 1 mg IVPUSH Q2H PRN PRN Reason: Pain Last Admin: 04/20/17 04:01 Dose: 1 mg Potassium Chloride 40 meq/ (Dextrose/Sodium Chloride) 1,020 mls @ 50 mls/hr IV ASDIRECTED [facility] Last Admin: 04/19/17 09:45 Dose: 30 mls/hr Heparin Sodium/Dextrose (Heparin 25,000 Units In D5w 500 Ml) 25,000 units in 500 mls @ IV TITRATE [facility]; 1,000 UNITS/KG/HR PRN Reason: Protocol Levofloxacin 750 mg/ Dextrose/ (Water) 130 mls @ 220 mls/hr IV DAILY [facility] Lisinopril (Prinivil) 30 mg PO DAILY [facility] Last Admin: 04/20/17 07:54 Dose: 30 mg Loperamide HCl (Imodium) 2 mg PO Q4H PRN PRN Reason: Diarrhea Magnesium Oxide (Magnesium Oxide) 400 mg PO DAILY [facility] Last Admin: 04/20/17 07:54 Dose: 400 mg Ondansetron HCl (Zofran) 4 mg IVPUSH Q4H PRN PRN Reason: Nausea/Vomiting Last Admin: 04/19/17 18:37 Dose: 4 mg Ondansetron HCl (Zofran) 4 mg IVPUSH Q8HR [facility] Last Admin: 04/20/17 06:17 Dose: 4 mg Polyethylene Glycol (Miralax) 17 gm PO DAILY@0800 [facility] Last Admin: 04/20/17 08:05 Dose: 17 gm Pravastatin Sodium (Pravachol) 40 mg PO BEDTIME [facility] Last Admin: 04/19/17 19:31 Dose: 40 mg Simethicone (Simethicone) 80 mg PO Q4H PRN PRN Reason: Heartburn Last Admin: 04/18/17 11:55 Dose: 80 mg Spironolactone (Aldactone) 25 mg PO DAILY [facility] Discontinued Medications Clindamycin Phosphate (Cleocin) Confirm Administered Dose 600 mg .ROUTE .[facility] Stop: 04/20/17 01:29 Last Admin: 04/20/17 01:46 Dose: 600 mg Furosemide (Lasix) 40 mg IVPUSH NOW ONE Stop: 04/17/17 08:09 Last Admin: 04/17/17 08:10 Dose: 40 mg Furosemide (Lasix) Confirm Administered Dose 40 mg .ROUTE .STK-MED ONE Stop: 04/17/17 08:23 Last Admin: 04/17/17 08:45 Dose: Not Given Furosemide (Lasix) 40 mg IVPUSH NOW ONE Stop: 04/17/17 10:03 Last Admin: 04/17/17 08:10 Dose: 40 mg Hydromorphone HCl (Dilaudid) 0.5 mg IVPUSH ONETIME ONE Stop: 04/15/17 16:37 Last Admin: 04/15/17 16:41 Dose: 0.5 mg Hydromorphone HCl (Dilaudid) Confirm Administered Dose 2 mg .ROUTE .STK-MED ONE Stop: 04/15/17 16:41 Last Admin: 04/15/17 16:39 Dose: Not Given Hydromorphone HCl (Dilaudid) 0.5 mg IVPUSH Q2H PRN PRN Reason: Pain Last Admin: 04/16/17 16:12 Dose: 0.5 mg Sodium Chloride (Normal Saline) 1,000 mls @ 999 mls/hr IV .BOLUS OXANA Last Admin: 04/15/17 16:10 Dose: 999 mls/hr Sodium Chloride (Normal Saline) 1,000 mls @ 125 mls/hr IV ASDIRECTED [facility] Last Admin: 04/15/17 20:20 Dose: 125 mls/hr Levofloxacin/Dextrose 500 mg/ (Premix) 100 mls @ 100 mls/hr IV Q24H [facility] Last Admin: 04/16/17 07:21 Dose: 100 mls/hr Levofloxacin/Dextrose 500 mg/ (Premix) 100 mls @ 100 mls/hr IV ONETIME ONE Stop: 04/15/17 20:59 Last Admin: 04/15/17 20:42 Dose: 100 mls/hr Levofloxacin/Dextrose 250 mg/ (Premix) 50 mls @ 50 mls/hr IV Q24H [facility] Last Admin: 04/18/17 20:55 Dose: 50 mls/hr Clindamycin Phosphate 600 mg/ (Dextrose/Water) 54 mls @ 150 mls/hr IV Q6HR [facility] Last Admin: 04/20/17 06:17 Dose: 150 mls/hr Lorazepam (Ativan) 1 mg PO ONETIME ONE Stop: 04/19/17 00:12 Last Admin: 04/20/17 07:35 Dose: Not Given Ondansetron HCl (Zofran) Confirm Administered Dose 4 mg .ROUTE .STK-MED ONE Stop: 04/15/17 16:10 Last Admin: 04/15/17 16:16 Dose: Not Given Polyethylene Glycol (Miralax) 17 gm PO DAILY [facility] Last Admin: 04/18/17 14:07 Dose: 17 gm Potassium Chloride (Klor-Con M20) 40 meq PO DAILY [facility] Last Admin: 04/19/17 10:48 Dose: Not Given Potassium Chloride (Klor-Con M20) 40 meq PO BID [facility] Last Admin: 04/20/17 07:54 Dose: 40 meq Zolpidem Tartrate (Ambien) 5 mg PO BEDTIME PRN PRN Reason: Insomnia Stop: 04/19/17 00:15 Last Admin: 04/19/17 00:21 Dose: 5 mg Zolpidem Tartrate (Ambien) Confirm Administered Dose 5 mg .ROUTE .STK-MED ONE Stop: 04/19/17 00:18 Last Admin: 04/19/17 01:47 Dose: Not Given - Exam General: Alert, Oriented, Lethargic HEENT: Pupils Equal, Pupils Reactive, EOMI Neck: Supple Lungs: Normal Respiratory Effort, Decreased Breath Sounds, Crackles, Rales Cardiovascular: Regular Rate, Regular Rhythm GI/Abdominal Exam: Normal Bowel Sounds, Soft, Non-Tender Back Exam: Normal Inspection Extremities: Normal Inspection - Problem List & Annotations (1) Hypokalemia SNOMED Code(s): 36263162 Code(s): E87.6 - HYPOKALEMIA Status: Acute Priority: High (2) Hyponatremia SNOMED Code(s): 32556395 Code(s): E87.1 - HYPO-OSMOLALITY AND HYPONATREMIA Status: Resolved Priority: High (3) Lung cancer, upper lobe SNOMED Code(s): 124295751 Code(s): C34.10 - MALIGNANT NEOPLASM OF UPPER LOBE, UNSP BRONCHUS OR LUNG Status: Chronic Priority: High (4) Back pain SNOMED Code(s): 086677775 Code(s): M54.9 - DORSALGIA, UNSPECIFIED Status: Acute Priority: High Qualifiers: Back pain location: low back pain Chronicity: chronic Back pain laterality: bilateral Sciatica presence: without sciatica Qualified Code(s) : M54.5 - Low back pain; G89.29 - Other chronic pain (5) Cachexia SNOMED Code(s): 028424648 Code(s): R64 - CACHEXIA Status: Chronic Priority: High (6) Palliative care patient SNOMED Code(s): 811850271 Code(s): Z51.5 - ENCOUNTER FOR PALLIATIVE CARE Status: Chronic Priority: High - Problem List Review Problem List Initiated/Reviewed/Updated: Yes - My Orders Last 24 Hours: My Active Orders 04/20/17 10:25 CULTURE BLOOD [BC] Routine 04/20/17 10:30 CULTURE BLOOD [BC] Routine 04/20/17 10:45 Heparin Sodium/D5W [Heparin 25,000 Units in D5W 500 ML] 25,000 units in 500 ml IV TITRATE Spironolactone [Aldactone] 25 mg PO DAILY 04/20/17 16:00 Levofloxacin [Levaquin] 750 mg Dextrose 5% in Water 100 ml IV DAILY 04/21/17 05:11 CBC WITH AUTO DIFF [HEME] AM COMPREHENSIVE METABOLIC PN,CMP [CHEM] AM PTT,PARTIAL THROMBOPLSTIN TIME [COAG] Routine - Plan Plan:: Patient will continue fluid hydration with 0.9%NS and additional KCL 40meq. We will recheck labs in AM. Discussed loperamide use and pain management for acute back pain concerns. We will continue monitoring pain control and diarrhea at this time. Continue course of antibiotics at this time but will likely discontinue in the next few days as the differential for pneumonia is low. 04/17/17 Woods to be placed. Lasix 40mg IV ordered. Will monitor fluid status closely. Elevated WBC likely due to metastatic cancer - patient does not have a fever or chills. Repeat labs as directed. Patient is DNR/DNI. Hold fluid resuscitation at this time. 04/18/17 Patient plan discussed. We will give another dose of 40mgIV lasix and monitor output. Patient will be continued on Levofloxacin and repeat labs in am. 04/19/[address] Chest today for evaluation of continued sob. Patient has no pain and on Fentanyl. F/u labs today. 04/20/[address] findings. Discussed with Dr. Mathias and he felt it was more of a clot. Discussed heparin drip with patient including risks and benefits. Discussed elevated WBC and concerns of sepsis. Patient understands the gravity and critical concerns. Dr. Sibley will take over for the weekend.
[2017-04-20] MEDS ORDERED: Heparin Sodium 5,000 UNITS/0.5 ML Syringe IVPUSH ONE (14:19)
[2017-04-20] MEDS ORDERED: WATER IV SCH ×2 (16:00)
[2017-04-20] MEDS ORDERED: DEXTROSE 5% IV SCH ×2 (16:00)
[2017-04-20] MEDS ORDERED: LEVOFLOXACIN IV SCH ×2 (16:00)
--- NOTE | 2017-04-20 16:30 | CT ---
DATE OF SERVICE: 04/19/17 CLINICAL DATA: sob, lung lesion UNENHANCED CHEST CT Multislice acquisition through the chest without IV contrast was performed. Comparison is made to a prior exam dated 12/20/16. There is a large right-sided pleural effusion and a moderate size left pleural effusion that were not present on the prior exam. The mass in the left mid and upper lung is again seen. It has markedly increased in size from the prior study. It measures greater than 15 cm in its maximum dimension. There is extension of this mass into the chest wall with lytic destruction of multiple ribs. It does encase the left upper lobe bronchus and occludes it. There also appears to be tumor within the left upper lobe bronchus. It partially encases the right lower lobe bronchus. There is atelectasis and consolidation of the right lower lobe. There is also a heterogeneous mass adjacent to the trachea and esophagus. It does contain numerous small gas-density foci. It is adjacent to the tip of the distal Port-A- Cath. An active infectious or inflammatory process should be considered. Gas density may be related to Port-A-Cath placement failure with repeated injections. The exam is otherwise unchanged from the prior. [id number] MTDD
[2017-04-20] MEDS: Pravastatin 40 MG Tab PO SCH (21:34)
[2017-04-20 22:37] VITALS: BP 153/73
--- NOTE | 2017-04-20 22:45 | PCM.SN ---
- Free Text/Narrative Note: I did take over patient care today from . I did receive the Report of the CT scan of the chest today. She does have aggressive spreading lung cancer with extension of the tumour into the chest wall and also lytic lesions of the ribs. Also she has large pleural effusions. Also there is air seen around the trachea and esophagus and also around port-a-cath. There is right lower lobe pneumonia probably secondary to obstruction. Also her white count has gone up from 22 K to 26K today.She probably is getting sepsis.Also she has been very tachypnec, which might be due to limited functional lung at this point. I did contact , the general surgeon correctional supply supervisor and discuss the results of the CT scan with patient. Considering the severity of the metastatic disease and sepsis and hypoxia. Options are limited. The port-a-cath could be removed under local anesthesia, but there might be complication like bleeding or the dissemination of the infection if there is abscess around the Port-A-cath. Which might make the condition worse. Also pt is tachypnec and with limited functional lung capacity and end stage matastatic lung cancer, options are limited. I did discuss the issue with patient, her , her son and grand daughter.Options were discussed as above and comfort care was discussed.After all the consideration, patient preferred comfort care only, and her did prefer to run the IV antibiotics for her pneumonia. Respecting patient's decision, pt is placed on comfort care, will continue Iv antibiotics. will repeat CBC in AM and followup. Patient and family agree with the plan.
[2017-04-21] MEDS: HYDROmorphone 2 MG/ML Syringe IVPUSH PRN ×2 (02:12→07:49)
[2017-04-21] MEDS: Ondansetron 4 MG/2 ML SDV IVPUSH PRN (02:22)
[2017-04-21] MEDS: Ondansetron 4 MG/2 ML SDV IVPUSH SCH (06:09)
[2017-04-21] MEDS ORDERED: Sodium Chloride 0.9% 500 ML IV SCH (07:15)
[2017-04-21] MEDS ORDERED: Potassium Chloride 20 MEQ Tab.ER PO SCH (08:00)
[2017-04-21] MEDS ORDERED: Levofloxacin/Dextrose 5%-Water 150 ML IV SCH (08:00)
--- NOTE | 2017-04-21 17:31 | PCM.DCSUM1 ---
Discharge Summary - Hospital Course Free Text/Narrative:: Pt was initially admitted with diagnosis of pneumonia with dehydration. She was started on IV fluids and also Iv Zithromax and rocephin. Pt's intial white count was 15K, but with IV antibiotics her white count continued to rise and was 24K on 04/17/17. At this point the antibiotic was changed to Levaquin 750mg daily. Pt's white count did improve to 17 K next day. but on 04/19/17 pt had white count of 22K. At which point CT of the Chest was done. Which did show interval enlargement of the lung cancer and spread to the right lower lobe and post obstructive pneumonia, with possible abscess around the Port-A-Cath. Pt has remained afebrile althrough the course of the stay. Pt's Port-A-Cath is not in use presently. On 04/20/17, i did take over the care of the patient. On having the radiology report of the CT scan available, I did contact Dr. Daley the general surgeon irrigation system installer to discuss the possibility of the chest wall abscess.His recommendation ws to give patient the options of removal versus comfort care management and risks asso with removing the Port. Pt has been tachpnec on Oxygen. She has stage 4 end stage lung cancer. The risks asso with removal of the Port-a-cath and progression of infection and cancer disease process, was discussed in detail with patient, her , son and daughter-in law. All the options were given to patient.Pt's preference was to just keep her on comfort care.Pt's does prefer to have her antibiotics running , just hoping to help with infection Hence at this point pt has been discharged to swing [facility] level of care. Brief History: Pt is 72/F with stage 4 lung cancer, who [facility] with diagnosis of pneumonia with sepsis. Kindly see H&P for details. - Discharge Data Discharge Date: 03/28/17 Discharge Disposition: DC/Tfer W/I Hosp To [place] [id number] Condition: Poor - Patient Instructions Diet: Regular Diet as Tolerated Fluid Restriction: 1500 mL Activity: As Tolerated Wound/Incision Care: Keep Operative Site/Wound Site Clean and Dry - Discharge Plan Forms: ED Department Discharge Referrals: PCP,None [Primary Care Provider] - - Discharge Summary/Plan Comment DC Time >30 min.: Yes Discharge Summary/Plan Comment: Kindly use this a Swing bed admission H&P - General Info Functional Status: Reports: Pain Controlled, Tolerating Diet, Urinating - Review of Systems General: Reports: Weakness. Denies: Fever HEENT: Denies: Sinus Congestion, Sore Throat Pulmonary: Denies: Pleuritic Chest Pain, Cough, Sputum, Wheezing Cardiovascular: Denies: Chest Pain, Lightheadedness Gastrointestinal: Reports: Decreased Appetite. Denies: Abdominal Pain, Nausea, Vomiting Genitourinary: Denies: Dysuria, Frequency Musculoskeletal: Reports: Back Pain. Denies: Joint Pain, Joint Swelling Skin: Denies: Cyanosis, Bruising, Pruritis, Rash Neurological: Denies: Numbness, Tingling Psychiatric: Denies: Confusion, Depression, Anxiety - Patient Data Vitals - Most Recent: Last Vital Signs Temp 98.8 F 04/20/17 16:00 Pulse 105 H 04/21/17 04:00 Resp 24 H 04/21/17 04:00 BP 153/73 H 04/20/17 16:00 Pulse Ox 99 04/21/17 04:00 Weight - Most Recent: 59.874 kg I&O - Last 24 hours: Intake & Output 04/21/17 04/21/17 04/21/17 06:59 14:59 22:59 Intake Total 305 Output Total 700 Balance -395 Lab Results - Last 24 hrs: Laboratory Results - last 24 hr 04/20/17 04/21/17 04/21/17 Range/Units 19:05 08:20 08:20 WBC 24.5 H* (4.0-11.0) K/uL RBC 4.12 (3.80-5.80) M/uL Hgb 10.6 L (11.5-16.5) g/dL Hct 33.3 L (37.0-47.0) % MCV 81 (76-96) fL MCH 25.7 L (27.0-32.0) pg MCHC 31.8 (31.0-35.0) g/dL RDW 14.4 (11.0-16.0) % Plt Count 461 (150-500) K/uL MPV 8.9 (6.0-10.0) fL Neut % (Auto) 88.4 H (45.0-70.0) % Lymph % (Auto) 4.3 L (20.0-40.0) % Canyon % (Auto) 6.0 (3.0-10.0) % Eos % (Auto) 1.1 (1.0-5.0) % Baso % (Auto) 0.2 (0.0-0.5) % Neut # (Auto) 21.62 H (2.00-7.50) K/uL Lymph # (Auto) 1.05 L (1.50-4.00) K/uL [place] # (Auto) 1.47 H (0.20-0.80) K/uL Eos # (Auto) 0.27 (0.04-0.40) K/uL Baso # (Auto) 0.04 (0.02-0.10) K/uL APTT 27.4 (27.0-35.0) SECONDS Sodium 136 (136-145) mmol/L Potassium 3.8 (3.5-5.1) mmol/L Chloride 96 L (98-107) mmol/L Carbon Dioxide 36.9 H (21.0-32.0) mmol/L Anion Gap 6.9 (5.0-15.0) mmol/L BUN 16 (8-26) mg/dL Creatinine 0.52 L D (0.55-1.02) mg/dL Est Cr Clr Drug Dosing 87.00 mL/min Estimated GFR (MDRD) > 60 (>60) MLS/MIN BUN/Creatinine Ratio 30.8 H (6-25) Glucose 90 (74-100) mg/dL Calcium 9.1 (8.5-10.1) mg/dL Total Bilirubin 0.3 D (0.0-1.0) mg/dL AST 21 (15-37) U/L ALT 20 (12-78) U/L Alkaline Phosphatase 94 (46-116) U/L Total Protein 4.9 L (6.4-8.2) g/dL Albumin 2.1 L (3.4-5.0) g/dL Globulin 2.8 (2.2-4.2) g/dL Albumin/Globulin Ratio 0.8 (0.8-2.0) LUCAS Results - Last 24 hrs: Microbiology 04/20/17 10:30 Aerobic Blood Culture - Preliminary Blood NO GROWTH AFTER 1 DAY Anaerobic Blood Culture - Preliminary NO GROWTH AFTER 1 DAY 04/20/17 10:25 Aerobic Blood Culture - Preliminary Blood NO GROWTH AFTER 1 DAY Anaerobic Blood Culture - Preliminary NO GROWTH AFTER 1 DAY Med Orders - Current: Current Medications Fentanyl (Duragesic) 25 mcg TRDERM Q72H [facility] Last Admin: 04/18/17 14:07 Dose: 25 mcg Furosemide (Lasix) 40 mg IVPUSH DAILY [facility] Last Admin: 04/20/17 10:12 Dose: Not Given Hydromorphone HCl (Dilaudid) 1 mg IVPUSH Q2H PRN PRN Reason: Pain Last Admin: 04/21/17 07:49 Dose: 1 mg Levofloxacin/Dextrose (Levaquin In D5w 750 Mg/150 Ml) 150 mls @ 100 mls/hr IV DAILY [facility] Last Admin: 04/21/17 08:28 Dose: 100 mls/hr Sodium Chloride (Normal Saline) 500 mls @ 0 mls/hr IV ASDIRECTED [facility] PRN Reason: KVO Stop: 04/25/17 07:15 Loperamide HCl (Imodium) 2 mg PO Q4H PRN PRN Reason: Diarrhea Ondansetron HCl (Zofran) 4 mg IVPUSH Q4H PRN PRN Reason: Nausea/Vomiting Last Admin: 04/21/17 02:22 Dose: 4 mg Simethicone (Simethicone) 80 mg PO Q4H PRN PRN Reason: Heartburn Last Admin: 04/18/17 11:55 Dose: 80 mg Discontinued Medications Clindamycin Phosphate (Cleocin) Confirm Administered Dose 600 mg .ROUTE .STK- MED ONE Stop: 04/20/17 01:29 Last Admin: 04/20/17 01:46 Dose: 600 mg Furosemide (Lasix) 40 mg IVPUSH NOW ONE Stop: 04/17/17 08:09 Last Admin: 04/17/17 08:10 Dose: 40 mg Furosemide (Lasix) Confirm Administered Dose 40 mg .ROUTE .STK-MED ONE Stop: 04/17/17 08:23 Last Admin: 04/17/17 08:45 Dose: Not Given Furosemide (Lasix) 40 mg IVPUSH NOW ONE Stop: 04/17/17 10:03 Last Admin: 04/17/17 08:10 Dose: 40 mg Heparin Sodium (Porcine) (Heparin Sodium) 4,500 units IVPUSH ONETIME ONE Stop: 04/20/17 14:20 Last Admin: 04/20/17 14:53 Dose: 4,500 units Hydromorphone HCl (Dilaudid) 0.5 mg IVPUSH ONETIME ONE Stop: 04/15/17 16:37 Last Admin: 04/15/17 16:41 Dose: 0.5 mg Hydromorphone HCl (Dilaudid) Confirm Administered Dose 2 mg .ROUTE .STK-MED ONE Stop: 04/15/17 16:41 Last Admin: 04/15/17 16:39 Dose: Not Given Hydromorphone HCl (Dilaudid) 0.5 mg IVPUSH Q2H PRN PRN Reason: Pain Last Admin: 04/16/17 16:12 Dose: 0.5 mg Sodium Chloride (Normal Saline) 1,000 mls @ 999 mls/hr IV .BOLUS [facility] Last Admin: 04/15/17 16:10 Dose: 999 mls/hr Sodium Chloride (Normal Saline) 1,000 mls @ 125 mls/hr IV ASDIRECTED [facility] Last Admin: 04/15/17 20:20 Dose: 125 mls/hr Levofloxacin/Dextrose 500 mg/ (Premix) 100 mls @ 100 mls/hr IV Q24H [facility] Last Admin: 04/16/17 07:21 Dose: 100 mls/hr Levofloxacin/Dextrose 500 mg/ (Premix) 100 mls @ 100 mls/hr IV ONETIME ONE Stop: 04/15/17 20:59 Last Admin: 04/15/17 20:42 Dose: 100 mls/hr Levofloxacin/Dextrose 250 mg/ (Premix) 50 mls @ 50 mls/hr IV Q24H [facility] Last Admin: 04/18/17 20:55 Dose: 50 mls/hr Potassium Chloride 40 meq/ (Dextrose/Sodium Chloride) 1,020 mls @ 50 mls/hr IV ASDIRECTED [facility] Last Admin: 04/19/17 09:45 Dose: 30 mls/hr Clindamycin Phosphate 600 mg/ (Dextrose/Water) 54 mls @ 150 mls/hr IV Q6HR [facility] Last Admin: 04/20/17 06:17 Dose: 150 mls/hr Heparin Sodium/Dextrose (Heparin 25,000 Units In D5w 500 Ml) 25,000 units in 500 mls @ 20 mls/hr IV TITRATE [facility] PRN Reason: Protocol Levofloxacin 750 mg/ Dextrose/ (Water) 150 mls @ 100 mls/hr IV DAILY@1600 [facility] Stop: 04/20/17 19:00 Last Admin: 04/20/17 16:25 Dose: 100 mls/hr Lisinopril (Prinivil) 30 mg PO DAILY [facility] Last Admin: 04/20/17 07:54 Dose: 30 mg Lorazepam (Ativan) 1 mg PO ONETIME ONE Stop: 04/19/17 00:12 Last Admin: 04/20/17 07:35 Dose: Not Given Magnesium Oxide (Magnesium Oxide) 400 mg PO DAILY [facility] Last Admin: 04/20/17 07:54 Dose: 400 mg Ondansetron HCl (Zofran) Confirm Administered Dose 4 mg .ROUTE .STK-MED ONE Stop: 04/15/17 16:10 Last Admin: 04/15/17 16:16 Dose: Not Given Ondansetron HCl (Zofran) 4 mg IVPUSH Q8HR [facility] Last Admin: 04/21/17 06:09 Dose: Not Given Polyethylene Glycol (Miralax) 17 gm PO DAILY [facility] Last Admin: 04/18/17 14:07 Dose: 17 gm Polyethylene Glycol (Miralax) 17 gm PO DAILY@0800 [facility] Last Admin: 04/20/17 08:05 Dose: 17 gm Potassium Chloride (Klor-Con M20) 40 meq PO DAILY [facility] Last Admin: 04/19/17 10:48 Dose: Not Given Potassium Chloride (Klor-Con M20) 40 meq PO BID [facility] Last Admin: 04/20/17 07:54 Dose: 40 meq Potassium Chloride (Klor-Con M20) 40 meq PO DAILY [facility] Pravastatin Sodium (Pravachol) 40 mg PO BEDTIME [facility] Last Admin: 04/20/17 21:34 Dose: Not Given Spironolactone (Aldactone) 25 mg PO DAILY [facility] Last Admin: 04/20/17 14:10 Dose: 25 mg Zolpidem Tartrate (Ambien) 5 mg PO BEDTIME PRN PRN Reason: Insomnia Stop: 04/19/17 00:15 Last Admin: 04/19/17 00:21 Dose: 5 mg Zolpidem Tartrate (Ambien) Confirm Administered Dose 5 mg .ROUTE .STK-MED ONE Stop: 04/19/17 00:18 Last Admin: 04/19/17 01:47 Dose: Not Given - Exam Quality Assessment: Reports: Supplemental Oxygen General: Reports: Alert, Oriented HEENT: Reports: Pupils Equal, Pupils Reactive, EOMI, Mucous Membr. Moist/Maceo Neck: Reports: Supple Lungs: Reports: Decreased Breath Sounds (left chest and right lower chest), Crackles (basal B/l), Other (Pt does use accessory muscles of respiration in the neck) Cardiovascular: Reports: Regular Rate, Regular Rhythm Back Exam: Reports: Normal Inspection, Full Range of Motion Extremities: Normal Inspection, Normal Range of Motion, Non-Tender, No Pedal Edema, Normal Capillary Refill Skin: Reports: Warm, Intact Neurological: Reports: No New Focal Deficit Psy/Mental Status: Reports: Alert, Normal Affect, Normal Mood *Q Meaningful Use (DIS) - VTE *Q VTE Criteria *Q: - Stroke *Q Stroke Criteria *Q: - AMI *Q AMI Criteria *Q:
== END 2017-04-21 10:12 | disposition swing bed (61) | DRG 871 ==
LOC: LB.ED 15:10 → LB.MS 18:15 → UNDOADMIN 18:15 → LB.MS 19:18
PROVIDERS: ADMIT Family Medicine; ATTEND Family Medicine
DX: A41.9 Sepsis, unspecified organism (principal); J18.9 Pneumonia, unspecified organism; E87.1 Hypo-osmolality and hyponatremia; C34.12 Malignant neoplasm of upper lobe, left bronchus or lung; R64 Cachexia; C79.9 Secondary malignant neoplasm of unspecified site; Z92.21 Personal history of antineoplastic chemotherapy; I10 Essential (primary) hypertension; E86.0 Dehydration; Z66 Do not resuscitate; Z51.5 Encounter for palliative care; E87.6 Hypokalemia; M54.5 Low back pain; G89.29 Other chronic pain; H54.7 Unspecified visual loss; Z88.0 Allergy status to penicillin; Z85.3 Personal history of malignant neoplasm of breast
CPT/HCPCS: 36415; 71010; 80053; 85025; 96361; 96374; 96375; 99284; A0425; A0429; J1170; J2405; J7040; 71250; 80048; 81001; 83735; 85730; 87040; 87070; 87205; A9270-GY; J1644-GY; J1940; J1956; J3480; J7060; S0077

== ENCOUNTER 2017-04-21 08:32 | Inpatient (IN) | payer MEDICARE, BC ==
[2017-04-21] MEDS ORDERED: Tuberculin, PPD 5 Units/0.1 ML 1 ML MDV IDERM ONE (10:11)
[2017-04-21] MEDS: HYDROmorphone 2 MG/ML Syringe SUBCUT PRN ×2 (11:10→23:54)
[2017-04-21] MEDS: fentaNYL 25 MCG/HR Transdermal Patch TRDERM SCH (14:51)
[2017-04-21] MEDS: Sodium Chloride 0.9% 500 ML IV ONE (14:52)
[2017-04-21] MEDS ORDERED: Levofloxacin 500 MG/20 ML SDV IV SCH (20:00)
[2017-04-21] MEDS: Ondansetron 4 MG/2 ML SDV IVPUSH PRN ×2 (20:11→23:54)
[2017-04-21] MEDS: HYDROmorphone 2 MG/ML Syringe IVPUSH PRN (20:12)
[2017-04-22] MEDS: Sodium Chloride 0.9% 1,000 ML IV SCH (02:30)
[2017-04-22] MEDS: Ondansetron 4 MG/2 ML SDV IVPUSH PRN ×3 (05:30→13:31)
[2017-04-22] MEDS: HYDROmorphone 2 MG/ML Syringe SUBCUT PRN (05:31)
[2017-04-22] MEDS ORDERED: DEXTROSE 5% IV SCH ×2 (08:00)
[2017-04-22] MEDS ORDERED: LEVOFLOXACIN IV SCH ×2 (08:00)
[2017-04-22] MEDS ORDERED: WATER IV SCH ×2 (08:00)
[2017-04-22] MEDS: HYDROmorphone 2 MG/ML Syringe IVPUSH PRN ×3 (08:35→15:01)
[2017-04-22] MEDS ORDERED: HYDROmorphone 4 MG/ML Syringe ONE (15:32)
[2017-04-22] MEDS: HYDROmorphone/Normal Saline 15 MG/30 ML PCA IV SCH (16:25)
[2017-04-23] MEDS ORDERED: Levofloxacin 500 MG/20 ML SDV IV SCH (08:00)
--- NOTE | 2017-04-23 14:40 | PCM.PN ---
- General Info Date of Service: 04/23/17 Functional Status: Reports: Pain Controlled - Review of Systems General: Reports: Weakness, Fatigue HEENT: Reports: No Symptoms Pulmonary: Reports: Shortness of Breath Cardiovascular: Reports: No Symptoms Gastrointestinal: Reports: Decreased Appetite Genitourinary: Reports: No Symptoms Musculoskeletal: Reports: Back Pain Skin: Reports: No Symptoms Neurological: Reports: Weakness - Patient Data Vitals - Most Recent: Last Vital Signs Temp 36.8 C 04/22/17 20:00 Pulse 112 H 04/23/17 08:00 Resp 24 H 04/22/17 20:00 BP 139/61 04/23/17 08:00 Pulse Ox 95 04/23/17 08:00 Weight - Most Recent: 59.5 kg I&O - Last 24 Hours: Intake & Output 04/22/17 04/23/17 04/23/17 22:59 06:59 14:59 Intake Total 480 Output Total 400 Balance 80 Lab Results Last 24 Hours: Laboratory Results - last 24 hr 04/23/17 Range/Units 07:10 WBC 20.6 H* (4.0-11.0) K/uL RBC 4.19 (3.80-5.80) M/uL Hgb 10.7 L (11.5-16.5) g/dL Hct 33.4 L (37.0-47.0) % MCV 80 (76-96) fL MCH 25.5 L (27.0-32.0) pg MCHC 32.0 (31.0-35.0) g/dL RDW 14.9 (11.0-16.0) % Plt Count 430 (150-500) K/uL MPV 9.1 (6.0-10.0) fL Neut % (Auto) 86.4 H (45.0-70.0) % Lymph % (Auto) 4.9 L (20.0-40.0) % [place] % (Auto) 7.7 (3.0-10.0) % Eos % (Auto) 0.7 L (1.0-5.0) % Baso % (Auto) 0.3 (0.0-0.5) % Neut # (Auto) 17.77 H (2.00-7.50) K/uL Lymph # (Auto) 1.00 L (1.50-4.00) K/uL [place] # (Auto) 1.58 H (0.20-0.80) K/uL Eos # (Auto) 0.14 (0.04-0.40) K/uL Baso # (Auto) 0.06 (0.02-0.10) K/uL Med Orders - Current: Current Medications Fentanyl (Duragesic) 25 mcg TRDERM Q72H [facility] Last Admin: 04/21/17 14:51 Dose: 25 mcg Hydromorphone HCl (Dilaudid Station Chief 15 Mg In Ns 30 Ml) 0 mg IV ASDIRECTED [facility] PRN Reason: Protocol Last Admin: 04/22/17 16:25 Dose: 0.1 mg Levofloxacin/Dextrose 750 mg/ (Premix) 150 mls @ 100 mls/hr IV Q48H [facility] Ondansetron HCl (Zofran) 4 mg IVPUSH Q4HR PRN PRN Reason: Nausea Last Admin: 04/22/17 13:31 Dose: 4 mg Discontinued Medications Hydromorphone HCl (Dilaudid) 1 mg IVPUSH Q2H PRN PRN Reason: Pain Last Admin: 04/22/17 15:01 Dose: 1 mg Hydromorphone HCl (Dilaudid) 1 mg SUBCUT Q2H PRN PRN Reason: Pain Last Admin: 04/22/17 05:31 Dose: 1 mg Hydromorphone HCl (Dilaudid) Confirm Administered Dose 16 mg .ROUTE .STK-MED ONE Stop: 04/22/17 15:33 Levofloxacin 750 mg/ Dextrose/ (Water) 130 mls @ 220 mls/hr IV DAILY [facility] Last Admin: 04/21/17 08:00 Dose: 220 mls/hr Sodium Chloride (Normal Saline) 500 mls @ 30 mls/hr IV .BOLUS ONE Stop: 04/22/17 02:56 Last Admin: 04/21/17 14:52 Dose: 30 mls/hr Levofloxacin (Levaquin) 750 mg IV ASDIRECTED [facility] Tuberculin PPD (Aplisol) 5 unit IDERM ONETIME ONE Stop: 04/21/17 10:12 Last Admin: 04/21/17 19:08 Dose: Not Given - Exam General: Alert, Cooperative HEENT: Pupils Equal, Pupils Reactive, EOMI Neck: Supple Lungs: Decreased Breath Sounds, Crackles, Rales Cardiovascular: Regular Rate, Regular Rhythm GI/Abdominal Exam: Normal Bowel Sounds, Soft, Non-Tender Extremities: Normal Inspection Peripheral Pulses: 2+: Dorsalis Pedis (L), Dorsalis Pedis (R) Skin: Warm, Dry, Intact Neurological: No New Focal Deficit Psy/Mental Status: Alert, Normal Affect, Normal Mood - Problem List & Annotations (1) Leukocytosis SNOMED Code(s): 045387757, 147411267 Code(s): D72.829 - ELEVATED WHITE BLOOD CELL COUNT, UNSPECIFIED Status: Acute Current Visit: Yes (2) Metastatic squamous cell carcinoma SNOMED Code(s): 250656027 Code(s): C79.9 - SECONDARY MALIGNANT NEOPLASM OF UNSPECIFIED SITE; C80.1 - MALIGNANT (PRIMARY) NEOPLASM, UNSPECIFIED Status: Acute Current Visit: No (3) Cachexia SNOMED Code(s): 526339932 Code(s): R64 - CACHEXIA Status: Chronic Priority: High Current Visit: No (4) Lung cancer, upper lobe SNOMED Code(s): 497842720 Code(s): C34.10 - MALIGNANT NEOPLASM OF UPPER LOBE, UNSP BRONCHUS OR LUNG Status: Chronic Priority: High Current Visit: Yes Qualifiers: (5) Palliative care patient SNOMED Code(s): 587218136 Code(s): Z51.5 - ENCOUNTER FOR PALLIATIVE CARE Status: Chronic Priority: High Current Visit: Yes - Problem List Review Problem List Initiated/Reviewed/Updated: Yes - Plan Plan:: Patient resting comfortably with mild visible increased effort of breathing but not uncomfortable. Patient states she is not in pain and feels ok. Discussed follow up labs as needed. Patient counseled on abnormal CT findings and port-a- cath placement concerns and possible blockage vs abscess. Improved WBC recently. Patient does appear weaker but comfortable. We will continue comfort measures but continue antibiotics as per family wishes.
[2017-04-23] MEDS: HYDROmorphone/Normal Saline 15 MG/30 ML PCA IV SCH (16:00)
[2017-04-23] MEDS: Sodium Chloride 0.9% 500 ML IV ONE (16:00)
[2017-04-23] MEDS: Tuberculin, PPD 5 Units/0.1 ML 1 ML MDV IDERM ONE ×2 (18:12→21:11)
[2017-04-23] MEDS: Pantoprazole 40 MG Vial IVPUSH SCH (18:12)
[2017-04-23] MEDS: Levofloxacin/Dextrose 5%-Water 750 MG in Premix Bag 1 BAG IV SCH (21:11)
[2017-04-24] MEDS: Ondansetron 4 MG/2 ML SDV IVPUSH PRN ×2 (08:43→20:00)
[2017-04-24] MEDS: fentaNYL 25 MCG/HR Transdermal Patch TRDERM SCH (16:28)
[2017-04-24] MEDS: HYDROmorphone/Normal Saline 15 MG/30 ML PCA IV SCH (17:29)
[2017-04-24] MEDS: Pantoprazole 40 MG Vial IVPUSH SCH (18:01)
[2017-04-24] MEDS ORDERED: Bisacodyl 10 MG Supp ONE (20:40)
[2017-04-24] MEDS: Sodium Chloride 0.9% 1,000 ML IV SCH (23:45)
--- NOTE | 2017-04-25 12:20 | PCM.HP ---
H&P History of Present Illness - General Date of Service: 04/21/17 Admit Problem/Dx: Admission Diagnosis/Problem Admission Diagnosis/Problem Palliative care status Dr. Jose David Esquivel note Pt was initially admitted with diagnosis of pneumonia with dehydration. She was started on IV fluids and also Iv Zithromax and rocephin. Pt's intial white count was 15K, but with IV antibiotics her white count continued to rise and was 24K on 04/17/17. At this point the antibiotic was changed to Levaquin 750mg daily. Pt's white count did improve to 17 K next day. but on 04/19/17 pt had white count of 22K. At which point CT of the Chest was done. Which did show interval enlargement of the lung cancer and spread to the right lower lobe and post obstructive pneumonia, with possible abscess around the Port-A-Cath. Pt has remained afebrile althrough the course of the stay. Pt's Port-A-Cath is not in use presently. On 04/20/17, i did take over the care of the patient. On having the radiology report of the CT scan available, I did contact Dr. Daley the general surgeon cone picker to discuss the possibility of the chest wall abscess.His recommendation ws to give patient the options of removal versus comfort care management and risks asso with removing the Port. Pt has been tachpnec on Oxygen. She has stage 4 end stage lung cancer. The risks asso with removal of the Port-a-cath and progression of infection and cancer disease process, was discussed in detail with patient, her , son and daughter-in law. All the options were given to patient.Pt's preference was to just keep her on comfort care.Pt's does prefer to have her antibiotics running , just hoping to help with infection Hence at this point pt has been discharged to swing bed level of care. Source of Information: Provider Generalized Pain Score (Numeric/FACES): 6 - Related Data Allergies/Adverse Reactions: Allergies Allergy/AdvReac Type Severity Reaction Status Date / Time Penicillins Allergy Swelling Verified 04/25/17 04:34 Home Medications: Home Meds NK [No Known Home Meds] 04/25/17 [History] Past Medical History HEENT History: Reports: Impaired Vision Cardiovascular History: Reports: Hypertension Other Respiratory History: dx in December 20 with lung CA Gastrointestinal History: Reports: None ENGINEERING AND OPERATIONS DIRECTOR History: Reports: Dysfunctional Uterine Bleeding, Other OB/BYN History: 2 CHILDREN HYSTERECTOMY AT 45 YEARS OLD Oncologic (Cancer) History: Reports: Breast, Lung Other Oncologic History: Lung CA diagnosed December 20 2016 - Infectious Disease History Infectious Disease History: Reports: Chicken Pox, Measles, Mumps, Rubella - Past Surgical History Respiratory Surgical History: Reports: None GI Surgical History: Reports: None Social & Family History - Family History Family Medical History: Noncontributory - Tobacco Use Smoking Status *Q: Never Smoker Second Hand Smoke Exposure: No - Caffeine Use Caffeine Use: Reports: Soda - Alcohol Use Days Per Week of Alcohol Use: 0 - Recreational Drug Use Recreational Drug Use: No H&P Review of Systems - Review of Systems: Review Of Systems: ROS reveals no pertinent complaints other than HPI. Exam - Exam Exam: Not Obtained - Vital Signs Vital Signs: Last Vital Signs Temp 36.8 C 04/24/17 21:29 Pulse 110 H 04/24/17 21:29 Resp 16 04/25/17 08:00 BP 109/57 L 04/24/17 21:29 Pulse Ox 94 L 04/24/17 21:29 Weight: 59.5 kg - Patient Data Result Diagrams: 04/24/17 08:45 *Q Meaningful Use (ADM) - VTE *Q VTE Criteria *Q: - Stroke *Q Stroke Criteria *Q: - AMI *Q AMI Criteria *Q: - Problem List (1) Leukocytosis SNOMED Code(s): 712255257, 197352418 ICD Code: D72.829 - ELEVATED WHITE BLOOD CELL COUNT, UNSPECIFIED Status: Acute Current Visit: Yes (2) Metastatic squamous cell carcinoma SNOMED Code(s): 355556129 ICD Code: C79.9 - SECONDARY MALIGNANT NEOPLASM OF UNSPECIFIED SITE; C80.1 - MALIGNANT (PRIMARY) NEOPLASM, UNSPECIFIED Status: Acute Current Visit: No (3) Cachexia SNOMED Code(s): 536983412 ICD Code: R64 - CACHEXIA Status: Chronic Priority: High Current Visit: No (4) Lung cancer, upper lobe SNOMED Code(s): 659420634 ICD Code: C34.10 - MALIGNANT NEOPLASM OF UPPER LOBE, UNSP BRONCHUS OR LUNG Status: Chronic Priority: High Current Visit: Yes (5) Palliative care patient SNOMED Code(s): 164307408 ICD Code: Z51.5 - ENCOUNTER FOR PALLIATIVE CARE Status: Chronic Priority : High Current Visit: Yes Problem List Initiated/Reviewed/Updated: Yes Orders Last 24hrs: Active Orders 24 hr Category Date Time Status Insert Woods Catheter [Insert Urinary Catheter] [OM.PC] Care 04/24/17 15:30 Ordered Q24H Insert Woods Catheter [Insert Urinary Catheter] [OM.PC] Care 04/25/17 15:30 Ordered Q24H Insert Woods Catheter [Insert Urinary Catheter] [OM.PC] Care 04/26/17 15:30 Ordered Q24H Insert Woods Catheter [Insert Urinary Catheter] [OM.PC] Care 04/27/17 15:30 Ordered Q24H Insert Woods Catheter [Insert Urinary Catheter] [OM.PC] Care 04/28/17 15:30 Ordered Q24H Insert Woods Catheter [Insert Urinary Catheter] [OM.PC] Care 04/29/17 15:30 Ordered Q24H Insert Woods Catheter [Insert Urinary Catheter] [OM.PC] Care 04/30/17 15:30 Ordered Q24H Insert Woods Catheter [Insert Urinary Catheter] [OM.PC] Care 05/01/17 15:30 Ordered Q24H Insert Woods Catheter [Insert Urinary Catheter] [OM.PC] Care 05/02/17 15:30 Ordered Q24H Insert Woods Catheter [Insert Urinary Catheter] [OM.PC] Care 05/03/17 15:30 Ordered Q24H Insert Woods Catheter [Insert Urinary Catheter] [OM.PC] Care 05/04/17 15:30 Ordered Q24H Insert Woods Catheter [Insert Urinary Catheter] [OM.PC] Care 05/05/17 15:30 Ordered Q24H Insert Woods Catheter [Insert Urinary Catheter] [OM.PC] Care 05/06/17 15:30 Ordered Q24H Insert Woods Catheter [Insert Urinary Catheter] [OM.PC] Care 05/07/17 15:30 Ordered Q24H Insert Woods Catheter [Insert Urinary Catheter] [OM.PC] Care 05/08/17 15:30 Ordered Q24H Insert Woods Catheter [Insert Urinary Catheter] [OM.PC] Care 05/09/17 15:30 Ordered Q24H Insert Woods Catheter [Insert Urinary Catheter] [OM.PC] Care 05/10/17 15:30 Ordered Q24H Insert Woods Catheter [Insert Urinary Catheter] [OM.PC] Care 05/11/17 15:30 Ordered Q24H Insert Woods Catheter [Insert Urinary Catheter] [OM.PC] Care 05/12/17 15:30 Ordered Q24H Insert Woods Catheter [Insert Urinary Catheter] [OM.PC] Care 05/13/17 15:30 Ordered Q24H Insert Woods Catheter [Insert Urinary Catheter] [OM.PC] Care 05/14/17 15:30 Ordered Q24H Insert Woods Catheter [Insert Urinary Catheter] [OM.PC] Care 05/15/17 15:30 Ordered Q24H Insert Woods Catheter [Insert Urinary Catheter] [OM.PC] Care 05/16/17 15:30 Ordered Q24H Insert Woods Catheter [Insert Urinary Catheter] [OM.PC] Care 05/17/17 15:30 Ordered Q24H Insert Woods Catheter [Insert Urinary Catheter] [OM.PC] Care 05/18/17 15:30 Ordered Q24H Insert Woods Catheter [Insert Urinary Catheter] [OM.PC] Care 05/19/17 15:30 Ordered Q24H Insert Woods Catheter [Insert Urinary Catheter] [OM.PC] Care 05/20/17 15:30 Ordered Q24H Insert Woods Catheter [Insert Urinary Catheter] [OM.PC] Care 05/21/17 15:30 Ordered Q24H Insert Woods Catheter [Insert Urinary Catheter] [OM.PC] Care 05/22/17 15:30 Ordered Q24H Medication Orders Fentanyl (Duragesic) 25 mcg TRDERM Q72H [facility] Last Admin: 04/24/17 16:28 Dose: 25 mcg Admin: 04/21/17 14:51 Dose: 25 mcg Hydromorphone HCl (Dilaudid Elementary Science Teacher 15 Mg In Ns 30 Ml) 0 mg IV ASDIRECTED [facility] PRN Reason: Protocol Last Admin: 04/24/17 17:29 Dose: 15 mg Admin: 04/23/17 16:00 Dose: 15 mg Admin: 04/22/17 16:25 Dose: 0.1 mg Levofloxacin/Dextrose 750 mg/ (Premix) 150 mls @ 100 mls/hr IV Q48H [facility] Last Admin: 04/23/17 21:11 Dose: 100 mls/hr Sodium Chloride (Normal Saline) 1,000 mls @ 30 mls/hr IV ASDIRECTED [facility] Last Admin: 04/24/17 23:45 Dose: 30 mls/hr Infusion: 04/23/17 11:50 Dose: 30 mls/hr Admin: 04/22/17 02:30 Dose: 30 mls/hr Ondansetron HCl (Zofran) 4 mg IVPUSH Q4HR PRN PRN Reason: Nausea Last Admin: 04/24/17 20:00 Dose: 4 mg Admin: 04/24/17 08:43 Dose: 4 mg Admin: 04/22/17 13:31 Dose: 4 mg Admin: 04/22/17 10:49 Dose: 4 mg Admin: 04/22/17 05:30 Dose: 4 mg Admin: 04/21/17 23:54 Dose: 4 mg Admin: 04/21/17 20:11 Dose: 4 mg Pantoprazole Sodium (Protonix Iv) 40 mg IVPUSH Q24H [facility] Last Admin: 04/24/17 18:01 Dose: 40 mg Admin: 04/23/17 18:12 Dose: 40 mg Assessment/Plan Comment:: Patient admitted to [facility] bed for Comfort care by Dr. Sibley. We will continue current care and medications as indicated on discharge from acute care.
[2017-04-25] MEDS: Pantoprazole 40 MG Vial IVPUSH SCH (18:05)
[2017-04-25] MEDS: Levofloxacin/Dextrose 5%-Water 750 MG in Premix Bag 1 BAG IV SCH (20:13)
[2017-04-25] MEDS: HYDROmorphone/Normal Saline 15 MG/30 ML PCA IV SCH (22:50)
[2017-04-26] MEDS: Sodium Chloride 0.9% 1,000 ML IV SCH (10:05)
--- NOTE | 2017-04-26 13:20 | PCM.PN ---
- General Info Date of Service: 04/26/17 Subjective Update: Patient states today she would like to go for her Keytruda therapy tomorrow. I am in full agreement in her wishes and discussed this with family and Dr. Gonzales. The concerns are that Mellisa may be too weak and already will require an ambulance to go to the appointment. Discussed with son and [id number] and they were also concerned that the treatment, travel and physical exertion and stress may be too much for their mother. Discussed the same with Dr. Gonzales and he does recommend that she be able to walk within the clinic. Functional Status: Reports: Other (decreased appetite) - Review of Systems General: Reports: Weakness HEENT: Reports: No Symptoms Pulmonary: Reports: Shortness of Breath Gastrointestinal: Reports: No Symptoms Genitourinary: Reports: No Symptoms Skin: Reports: No Symptoms Neurological: Reports: Difficulty Walking, Weakness Psychiatric: Reports: No Symptoms - Patient Data Vitals - Most Recent: Last Vital Signs Temp 37.1 C 04/26/17 08:00 Pulse 108 H 04/25/17 20:00 Resp 16 04/26/17 08:00 BP 117/53 L 04/25/17 20:00 Pulse Ox 97 04/25/17 20:00 Weight - Most Recent: 59.5 kg I&O - Last 24 Hours: Intake & Output 04/25/17 04/26/17 04/26/17 22:59 06:59 14:59 Intake Total 833 Output Total 375 Balance 458 Lab Results Last 24 Hours: Laboratory Results - last 24 hr 04/26/17 04/26/17 Range/Units 07:40 07:40 WBC 14.0 H (4.0-11.0) K/uL RBC 3.98 (3.80-5.80) M/uL Hgb 10.0 L (11.5-16.5) g/dL Hct 32.2 L (37.0-47.0) % MCV 81 (76-96) fL MCH 25.1 L (27.0-32.0) pg MCHC 31.1 (31.0-35.0) g/dL RDW 14.7 (11.0-16.0) % Plt Count 319 D (150-500) K/uL MPV 9.0 (6.0-10.0) fL Neut % (Auto) 82.6 H (45.0-70.0) % Lymph % (Auto) 5.8 L (20.0-40.0) % Christian % (Auto) 8.9 (3.0-10.0) % Eos % (Auto) 2.2 (1.0-5.0) % Baso % (Auto) 0.5 (0.0-0.5) % Neut # (Auto) 11.57 H (2.00-7.50) K/uL Lymph # (Auto) 0.81 L (1.50-4.00) K/uL Christian # (Auto) 1.24 H (0.20-0.80) K/uL Eos # (Auto) 0.31 (0.04-0.40) K/uL Baso # (Auto) 0.07 (0.02-0.10) K/uL Sodium 136 (136-145) mmol/L Potassium 3.4 L (3.5-5.1) mmol/L Chloride 97 L (98-107) mmol/L Carbon Dioxide 39.5 H (21.0-32.0) mmol/L Anion Gap 2.9 L (5.0-15.0) mmol/L BUN 16 (8-26) mg/dL Creatinine 0.53 L (0.55-1.02) mg/dL Est Cr Clr Drug Dosing 84.82 mL/min Estimated GFR (MDRD) > 60 (>60) MLS/MIN BUN/Creatinine Ratio 30.2 H (6-25) Glucose 100 (74-100) mg/dL Calcium 9.5 (8.5-10.1) mg/dL Med Orders - Current: Current Medications Fentanyl (Duragesic) 25 mcg TRDERM Q72H [facility] Last Admin: 04/24/17 16:28 Dose: 25 mcg Hydromorphone HCl (Dilaudid Nutrition Technician 15 Mg In Ns 30 Ml) 0 mg IV ASDIRECTED [facility] PRN Reason: Protocol Last Admin: 04/25/17 22:50 Dose: 15 mg Levofloxacin/Dextrose 750 mg/ (Premix) 150 mls @ 100 mls/hr IV Q48H [facility] Last Admin: 04/25/17 20:13 Dose: 100 mls/hr Sodium Chloride (Normal Saline) 1,000 mls @ 30 mls/hr IV ASDIRECTED [facility] Last Admin: 04/26/17 10:05 Dose: 30 mls/hr Ondansetron HCl (Zofran) 4 mg IVPUSH Q4HR PRN PRN Reason: Nausea Last Admin: 04/24/17 20:00 Dose: 4 mg Pantoprazole Sodium (Protonix Iv) 40 mg IVPUSH Q24H [facility] Last Admin: 04/25/17 18:05 Dose: 40 mg Discontinued Medications Bisacodyl (Dulcolax) Confirm Administered Dose 10 mg .ROUTE .STK-MED ONE Stop: 04/24/17 20:41 Last Admin: 04/24/17 20:45 Dose: 10 mg Hydromorphone HCl (Dilaudid) 1 mg IVPUSH Q2H PRN PRN Reason: Pain Last Admin: 04/22/17 15:01 Dose: 1 mg Hydromorphone HCl (Dilaudid) 1 mg SUBCUT Q2H PRN PRN Reason: Pain Last Admin: 04/22/17 05:31 Dose: 1 mg Hydromorphone HCl (Dilaudid) Confirm Administered Dose 16 mg .ROUTE .STK-MED ONE Stop: 04/22/17 15:33 Last Admin: 04/23/17 19:07 Dose: Not Given Levofloxacin 750 mg/ Dextrose/ (Water) 130 mls @ 220 mls/hr IV DAILY [facility] Last Admin: 04/21/17 08:00 Dose: 220 mls/hr Sodium Chloride (Normal Saline) 500 mls @ 30 mls/hr IV .BOLUS ONE Stop: 04/22/17 02:56 Last Admin: 04/23/17 16:00 Dose: 30 mls/hr Levofloxacin (Levaquin) 750 mg IV ASDIRECTED [facility] Tuberculin PPD (Aplisol) 5 unit IDERM ONETIME ONE Stop: 04/21/17 10:12 Last Admin: 04/21/17 19:08 Dose: Not Given Tuberculin PPD (Aplisol) 5 unit IDERM ONETIME ONE Stop: 04/23/17 15:04 Last Admin: 04/23/17 21:11 Dose: Not Given - Exam Quality Assessment: Supplemental Oxygen General: Alert, Oriented, Cooperative HEENT: Pupils Equal, Pupils Reactive Lungs: Decreased Breath Sounds, Crackles, Rales, Rhonchi Cardiovascular: Regular Rate, Regular Rhythm GI/Abdominal Exam: Normal Bowel Sounds Extremities: Normal Inspection Physical Findings Comments:: Weakness and unable to stand on own. - Problem List & Annotations (1) Leukocytosis SNOMED Code(s): 672370237, 486534993 Code(s): D72.829 - ELEVATED WHITE BLOOD CELL COUNT, UNSPECIFIED Status: Acute Current Visit: Yes (2) Metastatic squamous cell carcinoma SNOMED Code(s): 663621226 Code(s): C79.9 - SECONDARY MALIGNANT NEOPLASM OF UNSPECIFIED SITE; C80.1 - MALIGNANT (PRIMARY) NEOPLASM, UNSPECIFIED Status: Acute Current Visit: No (3) Cachexia SNOMED Code(s): 729623651 Code(s): R64 - [place]HEXIA Status: Chronic Priority: High Current Visit: No (4) Lung cancer, upper lobe SNOMED Code(s): 325947920 Code(s): C34.10 - MALIGNANT NEOPLASM OF UPPER LOBE, UNSP BRONCHUS OR LUNG Status: Chronic Priority: High Current Visit: Yes (5) Palliative care patient SNOMED Code(s): 300447428 Code(s): Z51.5 - ENCOUNTER FOR PALLIATIVE CARE Status: Chronic Priority: High Current Visit: Yes (6) Severe muscle deconditioning SNOMED Code(s): 155946536 Code(s): R29.898 - OTH SYMPTOMS AND SIGNS INVOLVING THE MUSCULOSKELETAL SYSTEM Status: Acute Current Visit: Yes - Problem List Review Problem List Initiated/Reviewed/Updated: Yes - My Orders Last 24 Hours: My Active Orders 04/25/17 15:30 Insert Woods Catheter [Insert Urinary Catheter] [OM.PC] Q24H 04/26/17 15:30 Insert Woods Catheter [Insert Urinary Catheter] [OM.PC] Q24H 04/27/17 15:30 Insert Woods Catheter [Insert Urinary Catheter] [OM.PC] Q24H 04/28/17 15:30 Insert Woods Catheter [Insert Urinary Catheter] [OM.PC] Q24H 04/29/17 15:30 Insert Woods Catheter [Insert Urinary Catheter] [OM.PC] Q24H 04/30/17 15:30 Insert Woods Catheter [Insert Urinary Catheter] [OM.PC] Q24H 05/01/17 15:30 Insert Woods Catheter [Insert Urinary Catheter] [OM.PC] Q24H 05/02/17 15:30 Insert Woods Catheter [Insert Urinary Catheter] [OM.PC] Q24H 05/03/17 15:30 Insert Woods Catheter [Insert Urinary Catheter] [OM.PC] Q24H 05/04/17 15:30 Insert Woods Catheter [Insert Urinary Catheter] [OM.PC] Q24H 05/05/17 15:30 Insert Woods Catheter [Insert Urinary Catheter] [OM.PC] Q24H 05/06/17 15:30 Insert Woods Catheter [Insert Urinary Catheter] [OM.PC] Q24H 05/07/17 15:30 Insert Woods Catheter [Insert Urinary Catheter] [OM.PC] Q24H 05/08/17 15:30 Insert Woods Catheter [Insert Urinary Catheter] [OM.PC] Q24H 05/09/17 15:30 Insert Woods Catheter [Insert Urinary Catheter] [OM.PC] Q24H 05/10/17 15:30 Insert Woods Catheter [Insert Urinary Catheter] [OM.PC] Q24H 05/11/17 15:30 Insert Woods Catheter [Insert Urinary Catheter] [OM.PC] Q24H 05/12/17 15:30 Insert Woods Catheter [Insert Urinary Catheter] [OM.PC] Q24H 05/13/17 15:30 Insert Woods Catheter [Insert Urinary Catheter] [OM.PC] Q24H 05/14/17 15:30 Insert Woods Catheter [Insert Urinary Catheter] [OM.PC] Q24H 05/15/17 15:30 Insert Woods Catheter [Insert Urinary Catheter] [OM.PC] Q24H 05/16/17 15:30 Insert Woods Catheter [Insert Urinary Catheter] [OM.PC] Q24H 05/17/17 15:30 Insert Woods Catheter [Insert Urinary Catheter] [OM.PC] Q24H 05/18/17 15:30 Insert Woods Catheter [Insert Urinary Catheter] [OM.PC] Q24H 05/19/17 15:30 Insert Woods Catheter [Insert Urinary Catheter] [OM.PC] Q24H 05/20/17 15:30 Insert Woods Catheter [Insert Urinary Catheter] [OM.PC] Q24H 05/21/17 15:30 Insert Woods Catheter [Insert Urinary Catheter] [OM.PC] Q24H 05/22/17 15:30 Insert Woods Catheter [Insert Urinary Catheter] [OM.PC] Q24H - Plan Plan:: Patient admitted to Swing bed for Comfort care by Dr. Sibley. We will continue current care and medications as indicated on discharge from acute care. Discussion with Mellisa and family members. Patient agreed she was weak and will postpone Oncology appointment. We will continue with current management and plan.
[2017-04-26] MEDS: Pantoprazole 40 MG Vial IVPUSH SCH (20:13)
[2017-04-26] MEDS: HYDROmorphone/Normal Saline 15 MG/30 ML PCA IV SCH (21:50)
[2017-04-27] MEDS: Sodium Chloride 0.9% 500 ML IV SCH (02:55)
[2017-04-27] MEDS: Pantoprazole 40 MG Vial IVPUSH SCH (05:57)
[2017-04-27] MEDS: fentaNYL 25 MCG/HR Transdermal Patch TRDERM SCH (15:15)
[2017-04-27] MEDS: HYDROmorphone/Normal Saline 15 MG/30 ML PCA IV SCH (16:11)
[2017-04-27] MEDS: Levofloxacin/Dextrose 5%-Water 750 MG in Premix Bag 1 BAG IV SCH (19:44)
[2017-04-28] MEDS: HYDROmorphone/Normal Saline 15 MG/30 ML PCA IV SCH (05:21)
[2017-04-28] MEDS: Pantoprazole 40 MG Vial IVPUSH SCH (06:30)
[2017-04-28] MEDS: Ondansetron 4 MG/2 ML SDV IVPUSH PRN (09:04)
[2017-04-29] MEDS: Ondansetron 4 MG/2 ML SDV IVPUSH PRN (03:00)
[2017-04-29] MEDS: LORazepam 2 MG/ML MDV IVPUSH PRN ×2 (03:05→21:20)
[2017-04-29] MEDS: Pantoprazole 40 MG Vial IVPUSH SCH (06:12)
[2017-04-29] MEDS: HYDROmorphone/Normal Saline 15 MG/30 ML PCA IV SCH (08:02)
[2017-04-29] MEDS: Sodium Chloride 0.9% 500 ML IV SCH (09:02)
--- NOTE | 2017-04-29 21:31 | PCM.SN ---
- Free Text/Narrative Note: 9:00PM: nurse called to evaluate Mrs. Lancaster as she has slid off the bed. If was not a fall. Noted when nurse went to check on patient. Pt claims she has vague pain in her left shoulder. No head injury or other problems. Vitals stable. Pupils are equal and reactive. Left shoulder is non tender. No bruising. Able to lift her arm straight against gravity. Pt has no acute injuries. Pt reassured.
[2017-04-29] MEDS: Levofloxacin/Dextrose 5%-Water 750 MG in Premix Bag 1 BAG IV SCH (21:44)
[2017-04-30] MEDS: Sodium Chloride 0.9% 500 ML IV SCH ×2 (01:25→17:58)
[2017-04-30] MEDS: Pantoprazole 40 MG Vial IVPUSH SCH (05:45)
[2017-04-30] MEDS: LORazepam 2 MG/ML MDV IVPUSH PRN (16:11)
[2017-04-30] MEDS: HYDROmorphone/Normal Saline 15 MG/30 ML PCA IV SCH ×2 (19:32→20:10)
--- NOTE | 2017-04-30 20:20 | PCM.PN ---
- General Info Date of Service: 04/30/17 Subjective Update: Patient states she is ok. She appears tired and weak. Last night she had a fall from bed unwitnessed and Dr. Sibley had examined her and cleared her. Patient denies any acute pain but does have chronic discomfort. She continues to have shallow breaths. She is not as alert as last week and has increased weakness with occasional confusion. - Review of Systems General: Reports: Weakness HEENT: Reports: No Symptoms Pulmonary: Reports: Shortness of Breath Cardiovascular: Reports: Dyspnea on Exertion Gastrointestinal: Reports: Decreased Appetite Musculoskeletal: Reports: Shoulder Pain Skin: Reports: Pallor Neurological: Reports: Weakness Psychiatric: Reports: Confusion - Patient Data Vitals - Most Recent: Last Vital Signs Temp 37.1 C 04/30/17 10:00 Pulse 108 H 04/30/17 10:00 Resp 16 04/30/17 10:00 BP 97/70 04/30/17 10:00 Pulse Ox 96 04/30/17 10:00 Weight - Most Recent: 59.5 kg I&O - Last 24 Hours: Intake & Output 04/30/17 04/30/17 04/30/17 06:59 14:59 22:59 Intake Total 510 520 Output Total 250 250 Balance 260 270 Med Orders - Current: Current Medications Fentanyl (Duragesic) 25 mcg TRDERM Q72H [facility] Last Admin: 04/27/17 15:15 Dose: 25 mcg Hydromorphone HCl (Dilaudid Pv Installer Tech 15 Mg In Ns 30 Ml) 0 mg IV ASDIRECTED [facility]PL[facility] BY [facility] PRN Reason: Protocol Last Admin: 04/30/17 19:32 Dose: 15 mg Sodium Chloride (Normal Saline) 500 mls @ 30 mls/hr IV ASDIRECTED REPL[facility]ED BY [facility] Last Admin: 04/30/17 17:58 Dose: 30 mls/hr Lorazepam (Ativan) 1 mg IVPUSH Q4H PRN PRN Reason: Agitation Last Admin: 04/30/17 16:11 Dose: 1 mg Ondansetron HCl (Zofran) 4 mg IVPUSH Q4HR PRN PRN Reason: Nausea Last Admin: 04/29/17 03:00 Dose: 4 mg Pantoprazole Sodium (Protonix Iv) 40 mg IVPUSH DAILY@0600 [facility]PL[facility]ED [facility] Last Admin: 04/30/17 05:45 Dose: 40 mg Discontinued Medications Bisacodyl (Dulcolax) Confirm Administered Dose 10 mg .ROUTE .STK-MED ONE Stop: 04/24/17 20:41 Last Admin: 04/24/17 20:45 Dose: 10 mg Hydromorphone HCl (Dilaudid) 1 mg IVPUSH Q2H PRN PRN Reason: Pain Last Admin: 04/22/17 15:01 Dose: 1 mg Hydromorphone HCl (Dilaudid) 1 mg SUBCUT Q2H PRN PRN Reason: Pain Last Admin: 04/22/17 05:31 Dose: 1 mg Hydromorphone HCl (Dilaudid) Confirm Administered Dose 16 mg .ROUTE .STK-MED ONE Stop: 04/22/17 15:33 Last Admin: 04/23/17 19:07 Dose: Not Given Levofloxacin 750 mg/ Dextrose/ (Water) 130 mls @ 220 mls/hr IV DAILY [facility] Last Admin: 04/21/17 08:00 Dose: 220 mls/hr Sodium Chloride (Normal Saline) 500 mls @ 30 mls/hr IV .BOLUS ONE Stop: 04/22/17 02:56 Last Admin: 04/23/17 16:00 Dose: 30 mls/hr Levofloxacin/Dextrose 750 mg/ (Premix) 150 mls @ 100 mls/hr IV Q48H REPLACED BY [facility] Last Admin: 04/29/17 21:44 Dose: Not Given Sodium Chloride (Normal Saline) 1,000 mls @ 30 mls/hr IV ASDIRECTED REPLACED BY [facility] Last Admin: 04/26/17 10:05 Dose: 30 mls/hr Levofloxacin (Levaquin) 750 mg IV ASDIRECTED REPLACED BY [facility] Pantoprazole Sodium (Protonix Iv) 40 mg IVPUSH Q24H REPLACED BY [facility] Last Admin: 04/26/17 20:13 Dose: Not Given Tuberculin PPD (Aplisol) 5 unit IDERM ONETIME ONE Stop: 04/21/17 10:12 Last Admin: 04/21/17 19:08 Dose: Not Given Tuberculin PPD (Aplisol) 5 unit IDERM ONETIME ONE Stop: 04/23/17 15:04 Last Admin: 04/23/17 21:11 Dose: Not Given - Exam General: Obtunded HEENT: Pupils Equal, Pupils Reactive Neck: Supple Lungs: Decreased Breath Sounds, Crackles, Rales, Rhonchi Cardiovascular: Regular Rhythm, Tachycardia GI/Abdominal Exam: Abnormal Bowel Sounds (decreased) Peripheral Pulses: 1+: Dorsalis Pedis (L), Dorsalis Pedis (R) Skin: Dry, Intact, Cool - Problem List & Annotations (1) Leukocytosis SNOMED Code(s): 605314837, 152563439 Code(s): D72.829 - ELEVATED WHITE BLOOD CELL COUNT, UNSPECIFIED Status: Acute Current Visit: Yes (2) Metastatic squamous cell carcinoma SNOMED Code(s): 147918462 Code(s): C79.9 - SECONDARY MALIGNANT NEOPLASM OF UNSPECIFIED SITE; C80.1 - MALIGNANT (PRIMARY) NEOPLASM, UNSPECIFIED Status: Acute Current Visit: No (3) Cachexia SNOMED Code(s): 064484729 Code(s): R64 - [place]XIA Status: Chronic Priority: High Current Visit: No (4) Lung cancer, upper lobe SNOMED Code(s): 364762291 Code(s): C34.10 - MALIGNANT NEOPLASM OF UPPER LOBE, UNSP BRONCHUS OR LUNG Status: Chronic Priority: High Current Visit: Yes (5) Palliative care patient SNOMED Code(s): 882254354 Code(s): Z51.5 - ENCOUNTER FOR PALLIATIVE CARE Status: Chronic Priority: High Current Visit: Yes (6) Severe muscle deconditioning SNOMED Code(s): 394088296 Code(s): R29.898 - OTH SYMPTOMS AND SIGNS INVOLVING THE MUSCULOSKELETAL SYSTEM Status: Acute Current Visit: Yes - Problem List Review Problem List Initiated/Reviewed/Updated: Yes - My Orders Last 24 Hours: My Active Orders 04/30/17 15:30 Insert Woods Catheter [Insert Urinary Catheter] [OM.PC] Q24H 05/01/17 15:30 Insert Woods Catheter [Insert Urinary Catheter] [OM.PC] Q24H 05/02/17 15:30 Insert Woods Catheter [Insert Urinary Catheter] [OM.PC] Q24H 05/03/17 15:30 Insert Woods Catheter [Insert Urinary Catheter] [OM.PC] Q24H 05/04/17 15:30 Insert Woods Catheter [Insert Urinary Catheter] [OM.PC] Q24H 05/05/17 15:30 Insert Woods Catheter [Insert Urinary Catheter] [OM.PC] Q24H 05/06/17 15:30 Insert Woods Catheter [Insert Urinary Catheter] [OM.PC] Q24H 05/07/17 15:30 Insert Woods Catheter [Insert Urinary Catheter] [OM.PC] Q24H 05/08/17 15:30 Insert Woods Catheter [Insert Urinary Catheter] [OM.PC] Q24H 05/09/17 15:30 Insert Woods Catheter [Insert Urinary Catheter] [OM.PC] Q24H 05/10/17 15:30 Insert Woods Catheter [Insert Urinary Catheter] [OM.PC] Q24H 05/11/17 15:30 Insert Woods Catheter [Insert Urinary Catheter] [OM.PC] Q24H 05/12/17 15:30 Insert Woods Catheter [Insert Urinary Catheter] [OM.PC] Q24H 05/13/17 15:30 Insert Woods Catheter [Insert Urinary Catheter] [OM.PC] Q24H 05/14/17 15:30 Insert Woods Catheter [Insert Urinary Catheter] [OM.PC] Q24H 05/15/17 15:30 Insert Woods Catheter [Insert Urinary Catheter] [OM.PC] Q24H 05/16/17 15:30 Insert Woods Catheter [Insert Urinary Catheter] [OM.PC] Q24H 05/17/17 15:30 Insert Woods Catheter [Insert Urinary Catheter] [OM.PC] Q24H 05/18/17 15:30 Insert Woods Catheter [Insert Urinary Catheter] [OM.PC] Q24H 05/19/17 15:30 Insert Woods Catheter [Insert Urinary Catheter] [OM.PC] Q24H 05/20/17 15:30 Insert Woods Catheter [Insert Urinary Catheter] [OM.PC] Q24H 05/21/17 15:30 Insert Woods Catheter [Insert Urinary Catheter] [OM.PC] Q24H 05/22/17 15:30 Insert Woods Catheter [Insert Urinary Catheter] [OM.PC] Q24H - Plan Plan:: Patient admitted to [facility] bed for Comfort care by Dr. Sibley. We will continue current care and medications as indicated on discharge from acute care. 04/26/17 Discussion with Mellisa and family members. Patient agreed she was weak and will postpone Oncology appointment. We will continue with current management and plan. 04/30/17 Discussed plan of care with Kyle. He requested d/c of antibiotics. Antibiotics discontinued. We will increase dilauded basal rate for increased pain per patient. We will continue to monitor closely and manage comfort care. Discussed with Kyle the confusion especially at night and if family would like to stay with her at night.
[2017-05-01] MEDS: LORazepam 2 MG/ML MDV IVPUSH PRN (03:20)
[2017-05-01] MEDS: Pantoprazole 40 MG Vial IVPUSH SCH (05:50)
[2017-05-01] MEDS: fentaNYL 25 MCG/HR Transdermal Patch TRDERM SCH (06:15)
[2017-05-02] MEDS: HYDROmorphone/Normal Saline 15 MG/30 ML PCA IV SCH
[2017-05-02] MEDS: Sodium Chloride 0.9% 500 ML IV SCH (03:00)
[2017-05-02] MEDS: Pantoprazole 40 MG Vial IVPUSH SCH (05:30)
[2017-05-03] MEDS: HYDROmorphone/Normal Saline 15 MG/30 ML PCA IV SCH (04:14)
[2017-05-03] MEDS: Pantoprazole 40 MG Vial IVPUSH SCH (06:31)
[2017-05-03] MEDS: Sodium Chloride 0.9% 500 ML IV SCH (10:08)
[2017-05-03] MEDS: LORazepam 2 MG/ML MDV IVPUSH PRN (22:12)
[2017-05-04] MEDS: Sodium Chloride 0.9% 500 ML IV SCH (03:08)
[2017-05-04] MEDS: Pantoprazole 40 MG Vial IVPUSH SCH (05:49)
--- NOTE | 2017-05-04 11:48 | PCM.SN ---
- Free Text/Narrative Note: Patient seen yesterday 05/03/17. present yesterday and discussed comfort and continued management. Patient was able to talk with us briefly states she does feel comfortable. Patient is getting weaker and resting comfortably in bed. She is now bed bound and having increased effort of breathing. Patient seen today 05/04/17. Mellisa is able to recognize me and state she is comfortable. She is very weak and closes her eyes after a brief greeting. She rests comfortably in bed. We will continue turning and comfort measures.
[2017-05-04] MEDS ORDERED: Scopolamine 1.5 MG Transdermal Patch ONE (17:10)
[2017-05-04] MEDS ORDERED: Scopolamine 1.5 MG Transdermal Patch TRDERM SCH (17:15)
[2017-05-04 20:51] VITALS: BP 133/61
--- NOTE | 2017-05-07 08:36 | PCM.DCSUM1 ---
Discharge Summary - Hospital Course Brief History: This is a 76yo F on comfort cares due to metastatic squamous carcinoma of the lung. - Discharge Data Discharge Date: 05/05/17 Discharge Disposition: 20 Preliminary Cause of *Q: Respiratory Failure Condition: - Discharge Diagnosis/Problem(s) (1) Leukocytosis SNOMED Code(s): 237258215, 819951245 ICD Code: D72.829 - ELEVATED WHITE BLOOD CELL COUNT, UNSPECIFIED Status: Acute (2) Metastatic squamous cell carcinoma SNOMED Code(s): 074920466 ICD Code: C79.9 - SECONDARY MALIGNANT NEOPLASM OF UNSPECIFIED SITE; C80.1 - MALIGNANT (PRIMARY) NEOPLASM, UNSPECIFIED Status: Acute (3) Cachexia SNOMED Code(s): 894569338 ICD Code: R64 - [place]HEXIA Status: Chronic Priority: High (4) Lung cancer, upper lobe SNOMED Code(s): 863075284 ICD Code: C34.10 - MALIGNANT NEOPLASM OF UPPER LOBE, UNSP BRONCHUS OR LUNG Status: Chronic Priority: High (5) Palliative care patient SNOMED Code(s): 525489102 ICD Code: Z51.5 - ENCOUNTER FOR PALLIATIVE CARE Status: Chronic Priority : High (6) Severe muscle deconditioning SNOMED Code(s): 066653262 ICD Code: R29.898 - OTH SYMPTOMS AND SIGNS INVOLVING THE MUSCULOSKELETAL SYSTEM Status: Acute - Discharge Plan Home Medications: Home Meds NK [No Known Home Meds] 04/25/17 [History] - Discharge Summary/Plan Comment Discharge Summary/Plan Comment: Patient discharged per hospital protocol and guidance to Home. - Patient Data Vitals - Most Recent: Last Vital Signs Temp 36.9 C 05/04/17 20:49 Pulse 97 05/04/17 07:30 Resp 13 05/04/17 20:49 BP 133/61 05/04/17 20:49 Pulse Ox 93 L 05/04/17 20:49 Weight - Most Recent: 59.5 kg Med Orders - Current: Current Medications Discontinued Medications Bisacodyl (Dulcolax) Confirm Administered Dose 10 mg .ROUTE .STK-MED ONE Stop: 04/24/17 20:41 Last Admin: 04/24/17 20:45 Dose: 10 mg Fentanyl (Duragesic) 25 mcg TRDERM Q72H [facility] Last Admin: 05/01/17 06:15 Dose: Not Given Hydromorphone HCl (Dilaudid) 1 mg IVPUSH Q2H PRN PRN Reason: Pain Last Admin: 04/22/17 15:01 Dose: 1 mg Hydromorphone HCl (Dilaudid) 1 mg SUBCUT Q2H PRN PRN Reason: Pain Last Admin: 04/22/17 05:31 Dose: 1 mg Hydromorphone HCl (Dilaudid Commission Specialist 15 Mg In Ns 30 Ml) 0 mg IV ASDIRECTED [facility] PRN Reason: Protocol Last Admin: 05/03/17 04:14 Dose: 15 mg Hydromorphone HCl (Dilaudid) Confirm Administered Dose 16 mg .ROUTE .STK-MED ONE Stop: 04/22/17 15:33 Last Admin: 04/23/17 19:07 Dose: Not Given Levofloxacin 750 mg/ Dextrose/ (Water) 130 mls @ 220 mls/hr IV DAILY [facility] Last Admin: 04/21/17 08:00 Dose: 220 mls/hr Sodium Chloride (Normal Saline) 500 mls @ 30 mls/hr IV .BOLUS ONE Stop: 04/22/17 02:56 Last Admin: 04/23/17 16:00 Dose: 30 mls/hr Levofloxacin/Dextrose 750 mg/ (Premix) 150 mls @ 100 mls/hr IV Q48H [facility] Last Admin: 04/29/17 21:44 Dose: Not Given Sodium Chloride (Normal Saline) 1,000 mls @ 30 mls/hr IV ASDIRECTED [facility] Last Admin: 04/26/17 10:05 Dose: 30 mls/hr Sodium Chloride (Normal Saline) 500 mls @ 30 mls/hr IV ASDIRECTED [facility] Last Admin: 05/04/17 03:08 Dose: 30 mls/hr Levofloxacin (Levaquin) 750 mg IV ASDIRECTED [facility] Lorazepam (Ativan) 1 mg IVPUSH Q4H PRN PRN Reason: Agitation Last Admin: 05/03/17 22:12 Dose: 1 mg Ondansetron HCl (Zofran) 4 mg IVPUSH Q4HR PRN PRN Reason: Nausea Last Admin: 04/29/17 03:00 Dose: 4 mg Pantoprazole Sodium (Protonix Iv) 40 mg IVPUSH Q24H [facility] Last Admin: 04/26/17 20:13 Dose: Not Given Pantoprazole Sodium (Protonix Iv) 40 mg IVPUSH DAILY@0600 [facility] Last Admin: 05/04/17 05:49 Dose: 40 mg Scopolamine (Transderm-Scop) 1.5 mg TRDERM Q72H [facility] Last Admin: 05/04/17 17:21 Dose: 1.5 mg Scopolamine (Transderm-Scop) Confirm Administered Dose 1.5 mg .ROUTE .STK-MED ONE Stop: 05/04/17 17:11 Last Admin: 05/04/17 17:22 Dose: Not Given Tuberculin PPD (Aplisol) 5 unit IDERM ONETIME ONE Stop: 04/21/17 10:12 Last Admin: 04/21/17 19:08 Dose: Not Given Tuberculin PPD (Aplisol) 5 unit IDERM ONETIME ONE Stop: 04/23/17 15:04 Last Admin: 04/23/17 21:11 Dose: Not Given *Q Meaningful Use (DIS) - VTE *Q VTE Criteria *Q: - Stroke *Q Stroke Criteria *Q: - AMI *Q AMI Criteria *Q:
== END 2017-05-05 04:45 | disposition expired | DRG 951 ==
LOC: UNDOADMIN 08:51 → LB.MS 08:51
PROVIDERS: ADMIT Family Medicine; ATTEND Family Medicine
DX: Z51.5 Encounter for palliative care (principal); C34.10 Malignant neoplasm of upper lobe, unspecified bronchus or lung; C79.9 Secondary malignant neoplasm of unspecified site; R64 Cachexia; R53.1 Weakness; D72.829 Elevated white blood cell count, unspecified; R29.898 Other symptoms and signs involving the musculoskeletal system; M25.512 Pain in left shoulder; W06.XXXA Fall from bed, initial encounter; Y92.230 Patient room in hospital as the place of occurrence of the external cause; R41.0 Disorientation, unspecified; Z88.0 Allergy status to penicillin; H54.7 Unspecified visual loss; I10 Essential (primary) hypertension; C50.919 Malignant neoplasm of unspecified site of unspecified female breast; Z79.899 Other long term (current) drug therapy
CPT/HCPCS: 36415; 80048; 85025; 86480; 86580; A9270-GY; C9113; J1170; J1956; J2060; J2405; J7040; J7060